=== PATIENT | female | born 1935 | race Caucasian/White ===

== ENCOUNTER 2016-11-04 13:27 | Inpatient (IN) | payer MEDICARE, OTHER ==
[~2016-11-04] VITALS: Ht 165.1 cm; Wt 31.7 kg
[2016-11-04] MEDS ORDERED: ALBUTEROL SULFATE 2.5 MG/0.5 ML INH NEB SOLN As Ordered ONE (14:29)
[2016-11-04] MEDS ORDERED: IPRATROPIUM 0.5MG/ALBUTEROL 2.5MG INH SOL UD 3ML (DUONEB)(J7620) As Ordered ONE (14:29)
[2016-11-04] MEDS ORDERED: methylPREDNISolone INJ 125 MG/2 ML VIAL (J2930) As Ordered ONE (14:44)
[2016-11-04 14:47] LABS: BASO % 0.4 % (0.0-1.0); EOS % 0.4 % (0.0-3.0); LARGE UNSTAINED CELL # 0.1 K/mm3 (0.0-0.4); LARGE UNSTAINED CELL % 1.1 % (0.0-4.0); LYMPH # 0.8 K/mm3 (1.5-4.5); LYMPH % 7.9 % (24.0-44.0); MEAN CORPUSCULAR HEMOGLOBIN 30.9 pg (27.0-33.0); MEAN CORPUSCULAR HGB CONC 30.9 g/dl (32.0-36.5); MONO # 0.4 K/mm3 (0.0-0.8); NEUTROPHILS # 7.3 K/mm3 (1.8-7.7); NEUTROPHILS % 85.2 % (36.0-66.0); PLATELET COUNT, AUTOMATED 237 k/mm3 (150-450); RED CELL DISTRIBUTION WIDTH 14.6 % (11.5-14.5); WHITE BLOOD COUNT 8.6 K/mm3 (4.0-10.0)
[2016-11-04 15:24] LABS: CALCIUM LEVEL 9.5 MG/DL (8.8-10.2); CREATININE FOR GFR 0.96 MG/DL (0.55-1.02); GLOMERULAR FILTRATION RATE 59.2 (>32); POTASSIUM SERUM 4.2 MEQ/L (3.5-5.1)
--- NOTE | 2016-11-04 15:34 | REP ---
Left lower extremity Duplex Doppler venous ultrasound: Real time compression and duplex Doppler interrogation of the left lower extremity deep venous system is performed. The left common femoral, superficial femoral and popliteal veins are fully compressible with transducer pressure and demonstrate normal spontaneous and phasic flow, without evidence of deep venous thrombosis. Impression: No evidence of deep venous thrombosis of the left lower extremity femoral popliteal venous system. Signed by Bart Cotter MD 11/04/2016 03:26 P
[2016-11-04] MEDS ORDERED: IBAN150T5 PO (16:35)
[2016-11-04] MEDS ORDERED: VITA100066 PO (16:35)
[2016-11-04] MEDS ORDERED: ASPI1TAB PO (16:35)
[2016-11-04] MEDS ORDERED: CARV3.12 PO (16:35)
[2016-11-04] MEDS ORDERED: SPIR25TA2 PO (16:35)
[2016-11-04] MEDS ORDERED: COLA100C PO (16:35)
[2016-11-04] MEDS ORDERED: ARNU1INH INH (16:35)
[2016-11-04] MEDS ORDERED: TYLE650T35 PO (16:35)
[2016-11-04] MEDS ORDERED: VITA10002 PO (16:35)
[2016-11-04] MEDS ORDERED: FERA1TAB PO (16:35)
[2016-11-04] MEDS ORDERED: CHLO125TA PO (16:35)
--- NOTE | 2016-11-04 17:36 | REP ---
LEFT HIP: Two views of the left hip are performed. There is no acute fracture or dislocation. There is a metallic prosthesis of the proximal left femur. Metallic plate and multiple metallic screws are also seen in the proximal left femur. Vascular calcifications are seen in the soft tissues. IMPRESSION: Left hip prosthesis and adjacent internal fixation without evidence of acute fracture or dislocation. Signed by Bart Cotter MD 11/05/2016 05:13 P
--- NOTE | 2016-11-04 17:37 | REP ---
LEFT FEMUR: AP and lateral views of the left femur are performed. There is no acute fracture or dislocation. Metallic prosthesis is noted at the proximal left femur. There is metallic plate, multiple metallic screws and cerclage wiring just below that. IMPRESSION: No acute fracture or dislocation. Metallic internal fixation as well as left hip prosthesis. Signed by Bart Cotter MD 11/05/2016 05:13 P
[2016-11-04] MEDS ORDERED: ONDANSETRON 4MG/2ML VIAL (J2405) IV PRN (17:45)
[2016-11-04] MEDS ORDERED: ACETAMINOPHEN TAB 650MG DOSE (2X325MG) PO PRN (17:45)
[2016-11-04] MEDS ORDERED: IPRATROPIUM 0.5MG/ALBUTEROL 2.5MG INH SOL UD 3ML (DUONEB)(J7620) NEB PRN (17:45)
--- NOTE | 2016-11-04 17:57 | REP ---
CHEST: AP supine film of the chest is performed and compared to prior study of 09/18/2011. The heart size is not well evaluated. There are diffuse bilateral infiltrates. There are bilateral pleural effusions. The findings are likely on the basis of CHF and pulmonary edema, but underlying pneumonia cannot be excluded. IMPRESSION: Findings compatible with CHF and pulmonary edema with effusions. Cannot exclude underlying pneumonia. Signed by Bart Cotter MD 11/05/2016 05:13 P
--- NOTE | 2016-11-04 18:10 | HPE ---
DATE OF ADMISSION: 11/04/2016 PRIMARY CARE PROVIDER: Dr. Reyes [employer] PROFESSOR: Dr. Toledo CHIEF COMPLAINT: Increased shortness of breath and nonproductive cough for the last two or three days. HISTORY OF PRESENT ILLNESS: The patient has had 2-3 days of dry cough, increased shortness of breath, dyspnea on exertion, not feeling well, feeling tired most of the time. She did have a systolic blood pressure of 100 when she presented to the emergency department. QSOFA score and sepsis screen was negative. She was slightly hypoxic. She did receive DuoNebs, Solu-Medrol, and did improve her symptoms. PAST MEDICAL HISTORY: 1. Chronic obstructive pulmonary disease (COPD). 2. Hypertension. 3. Congestive heart failure with a known left ventricular ejection fraction of 25%. PAST SURGICAL HISTORY: 1. Left hip arthroplasty. 2. Partial gastrectomy. SOCIAL HISTORY: She states she has never been a smoker. Denies alcohol use. No illicit drug use. No sick contacts. No travel. FAMILY HISTORY: Noncontributory due to advanced age. ALLERGIES: Morphine. HOME MEDICATIONS: - Colace 100 mg twice a day - vitamin D 1000 units daily - Tylenol 325 mg every six hours as needed - Fergon 240 mg two tablets daily - vitamin B12 1000 mcg daily - aspirin 81 mg daily - multivitamin one tablet daily - ibandronate 150 mg monthly - chlorthalidone 25 mg half a tablet daily - carvedilol 3.125 mg twice a day - Arnuity Ellipta 100 mcg inhaler daily - spironolactone 25 mg half a tablet daily REVIEW OF SYSTEMS: CONSTITUTIONAL: Some generalized weakness. No fevers, chills, or rigors. No change in appetite. HEENT: She denies headache, lightheadedness, dizziness, blurry vision, double vision, or tinnitus. PULMONARY: Increased shortness of breath, some dyspnea on exertion with intermittent nonproductive cough. CARDIOVASCULAR: Positive history of heart failure with left ventricular ejection fraction of 25%. No paroxysmal nocturnal dyspnea (PND), orthopnea or lower extremity edema. GASTROINTESTINAL: No nausea, vomiting, or diarrhea. Bowel movements are regular. She denies any hematochezia or melena. GENITOURINARY: No dysuria, frequency, or hematuria. MUSCULOSKELETAL: No bone, muscle or joint pain, swelling, or erythema. NEUROLOGIC: No paresthesias or paralysis. ENDOCRINE: Negative for diabetes. Negative for thyroid disorder. LYMPHATICS: No lumps, bumps or swelling in the neck, axilla or groin. No weight loss. No night sweats. HEMATOLOGY: negative for bleeding or bruising disorder. No history of venous thromboembolism. ONCOLOGY: Negative for cancer. PSYCHIATRIC: Negative for depression. No suicidal ideation. No audio or visual hallucinations. PHYSICAL EXAMINATION: VITAL SIGNS: Temperature is 96.3, respiratory rate 16, pulse 95, blood pressure is 114/63, SPO2 is 97% on room air. GENERAL: The patient appears to be in no acute distress. She is alert and oriented. HEENT: Unremarkable. LUNGS: Diminished bibasilar breath sounds, expiratory wheeze. HEART: Regular rate and rhythm. ABDOMEN: Soft. EXTREMITIES: No edema. No calf tenderness. LABORATORY DATA: White count is 8.6, hemoglobin 13.7, and platelets are 237,000. Sodium 139, potassium is 4.2, chloride 106, bicarbonate 23, anion gap 10, BUN is 25, creatinine 0.96, glucose 135, CK 59, CK-MB 2.3, troponin 0.17. BNP is 2070. Blood cultures are pending times two. A 12-lead EKG shows sinus rhythm with occasional PVCs, left atrial enlargement, right axis is noted with right bundle branch block. IMPRESSION: Ms. Christina is a pleasant 80-year-old female who presented with increasing shortness of breath, dyspnea on the exertion, and nonproductive cough. She did respond to Solu-Medrol. However, I am concerned that she has an elevated troponin as well as a brain natriuretic peptide (BNP). I did have a discussion with Dr. Toledo who felt that we should be cautious with trying to diurese her, that she is frail and has a baseline poor prognosis. We will go ahead and monitor her overnight and continue with the diuretics that she is currently on. However, some of the etiology may be related to her chronic obstructive pulmonary disease (COPD) exacerbation. PROBLEM LIST: 1. Chronic obstructive pulmonary disease exacerbation. 2. Congestive heart failure (CHF) with known left ventricular ejection fraction of 25% and poor prognosis. 3. Hypertension. 4. Vitamin D deficiency. 5. Iron deficiency. PLAN: The patient will be admitted to the progressive care unit (PCU). We will cycle her cardiac enzymes, continue with Solu-Medrol, DuoNebs and home medications as directed. DVT prophylaxis with heparin. We will reevaluate her in the morning. If she is doing well, we will see if we can get her discharged home safely. However, I did have a servando discussion with her and her family members regarding her advanced directives. She does have a poor prognosis at baseline and she may want to have further discussions with her family, primary care provider, and Dr. Toledo regarding her advanced directives.
--- NOTE | 2016-11-04 20:57 | EDDOCDS ---
Nurse's Notes [facility] Name: Flor Christina Age: 80 yrs Sex: Female : 1935 Arrival Date: 11/04/2016 Time: 13:27 Bed 21 Private MD: Venessa Mitchell Diagnosis: Acute combined systolic (congestive) and diastolic (congestive) heart failure;Dyspnea;Chronic obstructive pulmonary disease with (acute) exacerbation Presentation: 11/04 13:33 Presenting complaint: Patient states: having diff beathing for last few days. dry bcj cough. more SOB with any activity. also states not eating well/feels tired all the time. denies chest pain. Adult Sepsis Screening: The patient does not have new or worsening altered mentation. Patient's respiratory rate is less than 22. Systolic blood pressure is greater than 100. Patient has a qSOFA score of 0- Negative Sepsis Screen. Suicide/Homicide risk assessment- the patient denies having any suicidal and/or homicidal ideations and does not present with any other emotional, behavioral or mental health complaints. Status: Patient is not a utility service worker or dependent. Transition of care: patient was not received from another setting of care. 13:33 Acuity: JUSTICE Level 3 bcj 13:33 Method Of Arrival: Walkin/Carried/Asstd bcj Triage Assessment: 13:45 General: Appears in no apparent distress, comfortable, Behavior is cooperative. Pain: bcj Location: left leg Pain currently is 3 out of 10 on a pain scale. Respiratory: Onset: The symptoms/episode began/occurred at an unknown time. Historical: - Allergies: Morphine; - Home Meds: 1. Colace 100 mg oral cap 1 cap 2 times per day 2. Vitamin D Oral 1,000 unit daily 3. Tylenol 325 mg Oral tab 2 tabs as needed 4. Fergon 240 mg (27 mg iron) oral tab 2 tab daily 5. Vitamin B-12 1,000 mcg Oral tab daily 6. aspirin 81 mg Oral tab 1 tab once daily 7. multivitamin Oral cap 1 tablet daily 8. ibandronate 150 mg oral tab 1 tab once moly 9. chlorthalidone 25 mg Oral tab 0.5 tab once daily 10. carvedilol 3.125 mg oral tab 1 tab 2 times per day 11. Arnuity Ellipta 100 mcg/actuation inhalation dsdv 1 puff once daily 12. spironolactone 25 mg Oral tab 12.5 mg once daily - PMHx: COPD; Hypertension; - PSHx: Hip Arthroplasty, Left; Partial gastrectomy; - Social history: Smoking status: Patient states was never smoker of tobacco. No barriers to communication noted. - Family history: Not pertinent. - : The pt / caregiver states he / she is not on anticoagulants. Home medication list is obtained from the patient. - Exposure Risk Screening:: None identified. Screenin:40 Screening information is obtained from the patient. Fall risk: No risks identified. mk4 Assistance ADL's: requires no assistance with activities of daily living. Abuse/DV Screen: The patient / caregiver reports he/she is: not in a situation that causes fear, pain or injury. Nutritional screening: No deficits noted. Advance Directives: Currently, there is no health care proxy. There is no active DNR order. There is no living will. There is no Power of [employer] Forms. Advance directive information has not previously been placed in an [facility] medical record. home support is adequate. Assessment: 14:13 General: Appears in no apparent distress. General: c/o pain left leg. Neurological: mk4 Level of Consciousness is awake, alert. Cardiovascular: No deficits noted. Cardiovascular: Chest pain is denied. Respiratory: Airway is patent Respiratory effort is even, unlabored, Respiratory pattern is regular, Breath sounds are diminished bilaterally. Derm: Skin is thin, with poor turgor Skin is pale. 15:39 General: General: Appears in no apparent distress, comfortable, Behavior is pleasant. mk4 15:43 Pain: Denies pain. Neurological: Level of Consciousness is awake, alert. Respiratory: mk4 Airway is patent Respiratory effort is even, unlabored, Respiratory pattern is regular. 16:59 General: Appears in no apparent distress, comfortable, Behavior is appropriate for age, jmb cooperative, Patient laying on stretcher, appears comfortable. No voiced complaints at this time. . Neurological: Level of Consciousness is awake, alert, obeys commands, Oriented to person, place, time, Emergency Care Attendant are weak bilaterally Speech is normal, Facial symmetry appears normal, Facial symmetry: tongue is midline. Cardiovascular: Capillary refill < 3 seconds Heart tones S1 S2 present Pulses are all present. Rhythm is regular Chest pain is denied. Respiratory: Airway is patent Respiratory effort is even, unlabored, Respiratory pattern is regular, symmetrical, Breath sounds are diminished bilaterally. GI: Abdomen is non- distended Bowel sounds present X 4 quads. Abd is soft and non tender X 4 quads. Derm: Skin is pink, warm & dry. Musculoskeletal: Range of motion intact in all extremities. 17:43 General: Appears in no apparent distress, comfortable, Behavior is appropriate for age, jmb cooperative, Patient laying on stretcher with family at bedside. NO voiced complaints at this time. . Neurological: Level of Consciousness is awake, alert, obeys commands, Oriented to person, place, time. Respiratory: Airway is patent Respiratory effort is even, unlabored, Respiratory pattern is regular, symmetrical. 18:35 General: Appears in no apparent distress, comfortable, Behavior is appropriate for age, jmb cooperative. Neurological: Level of Consciousness is awake, alert, obeys commands, Oriented to person, place, time. Respiratory: Airway is patent Respiratory effort is even, unlabored, Respiratory pattern is regular, symmetrical. 18:55 General: Appears in no apparent distress, comfortable, Behavior is appropriate for age, jmb cooperative, Patient laying on stretcher, appears comfortable. Patient voices no complaints at this time. . Neurological: Level of Consciousness is awake, alert, obeys commands, Oriented to person, place, time. Respiratory: Airway is patent Respiratory effort is even, unlabored, Respiratory pattern is regular, symmetrical. Vital Signs: 13:30 BP 114 / 63; Pulse 95; Resp 16; Temp 96.3(T); Pulse Ox 97% on R/A; Weight 27.67 kg (R); nb2 Height 5 ft. 5 in. (165.10 cm) (R); Pain 3/10; 16:49 BP 141 / 70 (auto/); jmb 16:50 Pulse 104 MON; Pulse Ox 96% ; jmb 17:04 BP 137 / 67 (auto/); jmb 17:05 Pulse 98 MON; Pulse Ox 96% ; jmb 17:19 BP 140 / 70 (auto/); jmb 17:20 Pulse 98 MON; Pulse Ox 96% ; jmb 17:34 BP 139 / 90 (auto/); jmb 17:34 Pulse 102 MON; Pulse Ox 97% ; jmb 17:49 BP 133 / 65 (auto/); jmb 17:50 Pulse 100 MON; Pulse Ox 98% ; jmb 18:04 BP 129 / 69 (auto/); jmb 18:05 Pulse 98 MON; Pulse Ox 96% ; jmb 18:19 BP 135 / 83 (auto/); jmb 18:20 Pulse 104 MON; jmb 18:34 BP 133 / 82 (auto/); jmb 18:34 Pulse 106 MON; jmb 18:34 Resp 20; Temp 97.4(O); Pulse Ox 96% on R/A; Pain 0/10; jmb 18:49 BP 133 / 65 (auto/); jmb 18:50 Pulse 100 MON; Pulse Ox 95% ; jmb 19:04 BP 109 / 59 (auto/); jmb 19:04 Pulse 96 MON; Pulse Ox 96% ; jmb 19:19 BP 98 / 68 (auto/); jmb 19:19 Pulse 96 MON; Pulse Ox 93% ; jmb 19:34 BP 119 / 75 (auto/); jmb 19:35 Pulse 100 MON; Pulse Ox 94% ; jmb 19:49 BP 122 / 60 (auto/); jmb 19:50 Pulse 102 MON; Pulse Ox 96% ; jmb 20:04 BP 126 / 64 (auto/); jmb 20:05 Pulse 98 MON; Pulse Ox 95% ; jmb 20:19 BP 122 / 71 (auto/); jmb 20:20 Pulse 102 MON; Pulse Ox 95% ; jmb 20:34 BP 118 / 64 (auto/); jmb 20:35 Pulse 100 MON; Pulse Ox 96% ; jmb 20:55 BP 118 / 64; Pulse 99; Resp 18 S; Temp 97.1(O); Pulse Ox 97% on R/A; Pain 0/10; jp4 13:30 Body Mass Index 10.15 (27.67 kg, 165.10 cm) nb2 Vitals: 13:30 Log In Time: November 04, 2016 at 13:28. nb2 ED Course: 13:29 Patient visited by Celia Salmeron. nb2 13:29 Patient moved to Waiting nb2 13:30 Venessa Mitchell is Private Physician. nb2 13:32 Patient moved to Pre RCE nb2 13:38 Triage Initiated bcj 13:46 Patient visited by Maldonado Watkins RN. bcj 14:07 Patient moved to Triage 1 ar3 14:08 Patient moved to Pre RCE bcj 14:13 Patient moved to I9 / kpj 14:14 Jayne Gomes MD is Attending Physician. ml 14:14 Patient visited by Jayne Gomes MD. ml 14:42 CBC with Diff Sent. mk4 14:42 MED Profile Sent. mk4 14:42 BNP Sent. mk4 14:42 CIP Sent. mk4 14:42 Troponin Sent. mk4 14:42 -Blood Culture Sent. mk4 14:42 Inserted saline lock: 20 gauge in right antecubital area and blood collected. No mk4 procedures done that require assistance. 14:46 Patient visited by Antonia Johnson, RN. mk4 15:01 Patient moved to Ultrasound br3 15:24 Patient moved to I9 / br3 15:28 Patient visited by Antonia Johnson, VIANNEY. mk4 15:40 The patient / caregiver is instructed regarding the plan of care and ED course. mk4 15:49 Patient moved to 21 srm 15:52 US Lower Extremity R/O DVT Returned. EDMS 16:19 Vik Rivers DO is Hospitalizing Provider. ml 17:01 Patient visited by Barney Donald RN. jmb 17:43 Patient visited by Barney Donald RN. jmb 18:10 Hip, (AP/Lat) Returned. EDMS 18:10 Femur Returned. EDMS 18:11 Chest, 1 View Returned. EDMS 18:22 [facility] Payment Agreement was scanned into [employer] and attached to record. ks16 18:57 Patient visited by Barney Donald RN. jmb 20:55 Patient visited by Mike Saunders. jp4 Administered Medications: 14:32 Drug: Albuterol 5 mg [albuterol sulfate 2.5 mg/0.5 mL solution for nebulization (1 mL)] 7 Route: Nebulizer; 14:45 Follow up: Response: Nebulizer completed 14:32 Drug: Albuterol-Ipratropium 3 ml [ipratropium-albuterol 0.5 mg-3 mg(2.5 mg base)/3 mL sd7 nebulization soln (3 mL)] Route: Inhalation; 14:45 Follow up: Response: Nebulizer completed sd7 15:29 Drug: Solu-MEDROL 125 mg [Solu-Medrol 500 mg intravenous solution (125 mg)] Route: IVP; mk4 Site: right antecubital; RT: 14:32 Initial Med Neb Given as ordered Patient was instructed and evaluated on procedure sd7 Patient tolerated procedure well without adverse effect. Respiratory: Breath sounds are diminished bilaterally. Order Results: Lab Order: CBC with Diff; SPEC'M 11/04/16 14:39 Test: WHITE BLOOD COUNT; Value: 8.6; Range: 4.0-10.0; Units: K/mm3; Status: F Test: RED BLOOD COUNT; Value: 4.42; Range: 4.00-5.40; Units: M/mm3; Status: F Test: HEMOGLOBIN; Value: 13.7; Range: 12.0-16.0; Units: g/dl; Status: F Test: HEMATOCRIT; Value: 44.2; Range: 36.0-47.0; Units: %; Status: F Test: MEAN CORPUSCULAR VOLUME; Value: 100.0; Range: 80.0-96.0; Abnormal: Above high normal; Units: fl; Status: F Test: MEAN CORPUSCULAR HEMOGLOBIN; Value: 30.9; Range: 27.0-33.0; Units: pg; Status: F Test: MEAN CORPUSCULAR HGB CONC; Value: 30.9; Range: 32.0-36.5; Abnormal: Below low normal; Units: g/dl; Status: F Test: RED CELL DISTRIBUTION WIDTH; Value: 14.6; Range: 11.5-14.5; Abnormal: Above high normal; Units: %; Status: F Test: PLATELET COUNT, AUTOMATED; Value: 237; Range: 150-450; Units: k/mm3; Status: F Test: NEUTROPHILS %; Value: 85.2; Range: 36.0-66.0; Abnormal: Above high normal; Units: %; Status: F Test: LYMPH %; Value: 7.9; Range: 24.0-44.0; Abnormal: Below low normal; Units: %; Status: F Test: MONO %; Value: 5.0; Range: 0.0-5.0; Units: %; Status: F Test: EOS %; Value: 0.4; Range: 0.0-3.0; Units: %; Status: F Test: BASO %; Value: 0.4; Range: 0.0-1.0; Units: %; Status: F Test: LARGE UNSTAINED CELL %; Value: 1.1; Range: 0.0-4.0; Units: %; Status: F Test: NEUTROPHILS #; Value: 7.3; Range: 1.8-7.7; Units: K/mm3; Status: F Test: LYMPH #; Value: 0.8; Range: 1.5-4.5; Abnormal: Below low normal; Units: K/mm3; Status: F Test: MONO #; Value: 0.4; Range: 0.0-0.8; Units: K/mm3; Status: F Test: EOS #; Value: 0.0; Range: 0.0-0.50; Units: K/mm3; Status: F Test: BASO #; Value: 0.0; Range: 0.0-0.2; Units: K/mm3; Status: F Test: LARGE UNSTAINED CELL #; Value: 0.1; Range: 0.0-0.4; Units: K/mm3; Status: F Lab Order: MED Profile; SPEC'M 11/04/16 14:39 Test: GLUCOSE, FASTING; Value: 135; Range: 83-110; Abnormal: Above high normal; Units: MG/DL; Status: F Test: BLOOD UREA NITROGEN; Value: 25; Range: 7-18; Abnormal: Above high normal; Units: MG/DL; Status: F Test: CREATININE FOR GFR; Value: 0.96; Range: 0.55-1.02; Units: MG/DL; Status: F Test: GLOMERULAR FILTRATION RATE; Value: 59.2; Range: >32; Status: F Test: SODIUM LEVEL; Value: 139; Range: 136-145; Units: MEQ/L; Status: F Test: POTASSIUM SERUM; Value: 4.2; Range: 3.5-5.1; Units: MEQ/L; Status: F Test: CHLORIDE LEVEL; Value: 106; Range: 98-107; Units: MEQ/L; Status: F Test: CARBON DIOXIDE LEVEL; Value: 23; Range: 21-32; Units: MEQ/L; Status: F Test: ANION GAP; Value: 10; Range: 8-16; Units: MEQ/L; Status: F Test: CALCIUM LEVEL; Value: 9.5; Range: 8.8-10.2; Units: MG/DL; Status: F Test Note: ; Units are mL/min/1.73 m2 Chronic Kidney Disease Staging per NKF: Stage I & II GFR >=60 Normal to Mildly Decreased Stage III GFR 30-59 Moderately Decreased Stage IV GFR 15-29 Severely Decreased Stage V GFR <15 Very Little GFR Left ESRD GFR <15 on SPEECH LANGUAGE PATHOLOGY ASSISTANT Lab Order: BNP; SPEC'M 11/04/16 14:39 Test: BRAIN NATRIURETIC PEPTIDE; Value: 2070; Range: <100; Abnormal: Above high normal; Units: PG/ML; Status: F Lab Order: CIP; SPEC'M 11/04/16 14:39 Test: CPK CREATINE PHOSPHOKINASE; Value: 59; Range: 26-192; Units: U/L; Status: F Test: CK-MB VALUE MASS; Value: 2.3; Range: 0.0-3.6; Units: NG/ML; Status: F Test: MB/CK RELATIVE INDEX; Value: 3.89; Range: < OR =4; Status: F Test Note: ; DIAGNOSIS CRITERIA MMB ng/ml Relative Index (RI) NON-AMI < or = 5 N/A COT[place]ONE > 5 < or = 4 AMI > 5 > 4 Lab Order: Troponin; SPEC'M 11/04/16 14:39 Test: TROPONIN I; Value: 0.17; Range: < 0.10; Abnormal: Above high normal; Units: NG/ML; Status: F Test Note: ; Troponin I Reference Interval for [employer] LOCI: 99th Percentile= 0.00-0.045 ng/ml Risk Stratification: <= 0.10 ng/ml Decreased Risk for Adverse Clinical Events. 0.10-1.50 ng/ml Increased Risk for Adverse Clinical Events. Evaluation of additional criterion and/or repeat testing in 2-6 hours is suggested to rule out myocardial damage. >= 1.50 ng/ml Indicative of Myocardial Injury. Radiology Order: Chest, 1 View Test: Chest, 1 View REASON FOR EXAMINATION: sob; CHEST:; ; AP supine film of the chest is performed and compared to prior study of; 09/18/2011.; ; The heart size is not well evaluated. There are diffuse bilateral infiltrates.; There are bilateral pleural effusions. The findings are likely on the basis of; CHF and pulmonary edema, but underlying pneumonia cannot be excluded.; ; IMPRESSION:; Findings compatible with CHF and pulmonary edema with effusions. Cannot exclude; underlying pneumonia.; ; Unreviewed; Radiology Order: US Lower Extremity R/O DVT Test: US Lower Extremity R/O DVT REASON FOR EXAMINATION: swelling; Left lower extremity Duplex Doppler venous ultrasound:; ; Real time compression and duplex Doppler interrogation of the left lower; extremity deep venous system is performed. The left common femoral, superficial; femoral and popliteal veins are fully compressible with transducer pressure and; demonstrate normal spontaneous and phasic flow, without evidence of deep venous; thrombosis.; ; Impression:; ; No evidence of deep venous thrombosis of the left lower extremity femoral; popliteal venous system.; ; ; Signed by; Bart Cotter MD 11/04/2016 03:26 P; Radiology Order: Hip, (AP/Lat) Test: Hip, (AP/Lat) REASON FOR EXAMINATION: fall; LEFT HIP:; ; Two views of the left hip are performed.; ; There is no acute fracture or dislocation. There is a metallic prosthesis of the; proximal left femur. Metallic plate and multiple metallic screws are also seen in; the proximal left femur. Vascular calcifications are seen in the soft tissues.; ; IMPRESSION:; Left hip prosthesis and adjacent internal fixation without evidence of acute; fracture or dislocation.; ; Unreviewed; Radiology Order: Femur Test: Femur REASON FOR EXAMINATION: fall; LEFT FEMUR:; ; AP and lateral views of the left femur are performed.; ; There is no acute fracture or dislocation. Metallic prosthesis is noted at the; proximal left femur. There is metallic plate, multiple metallic screws and; cerclage wiring just below that.; ; IMPRESSION:; No acute fracture or dislocation. Metallic internal fixation as well as left hip; prosthesis.; ; ; ; Unreviewed; Outcome: 16:20 Decision to Hospitalize by Provider. ml 18:50 Discharge Assessment: Patient awake, alert and oriented x 3. No cognitive and/or jmb functional deficits noted. Patient verbalized understanding of disposition instructions. Patient awake and alert. obeys commands, Oriented to person, place and time. Patient verbalized understanding of disposition instructions. Patient has no functional deficits. patient administered narcotics - no. The following High Risk Discharge criteria are identified: None. Admitted to PCU accompanied by nurse, accompanied by tech, via stretcher, on monitor, with chart. Condition: stable. No special radiology studies were completed. Property sent home with patient. 20:56 Patient left the ED. caitlin Signatures: Dispatcher [employer] EDOK Jayne Gomes MD MD ml Jobson, Karen, RN RN Maldonado Simon, RN RN Dorothy Almaraz, RN RN Jennifer Shankar br3 Nay Wadsworth, CAFE SITE ATTENDANT CAFE SITE ATTENDANT ar3 Barney DonaldRN RN Antonia Brar RN RN renaldo4 Mike Saunders jp4 Dominga Gay,RT RT sd7 Linh Razo, Reg Reg ks16 Celia Salmeron2 Corrections: (The following items were deleted from the chart) 15:43 15:39 General: mk4 mk4 [email or web address]
--- NOTE | 2016-11-04 20:57 | EDDOCDS ---
Physician Documentation [facility] Name: Flor Christina Age: 80 yrs Sex: Female : 1935 Arrival Date: 11/04/2016 Time: 13:27 Bed 21 Private MD: Venessa Mitchell Disposition: 11/04 18:22 Critical Care:. ml Disposition: 11/04/16 16:20 Hospitalization ordered by Vik Rivers for Inpatient Admission. Preliminary diagnosis are Acute combined systolic (congestive) and diastolic (congestive) heart failure, Dyspnea, Chronic obstructive pulmonary disease with (acute) exacerbation. - Bed requested for PCU. - Status is Inpatient Admission. jmb - Condition is Stable. - Problem is new. - Symptoms are unchanged. Historical: - Allergies: Morphine; - Home Meds: 1. Colace 100 mg oral cap 1 cap 2 times per day 2. Vitamin D Oral 1,000 unit daily 3. Tylenol 325 mg Oral tab 2 tabs as needed 4. Fergon 240 mg (27 mg iron) oral tab 2 tab daily 5. Vitamin B-12 1,000 mcg Oral tab daily 6. aspirin 81 mg Oral tab 1 tab once daily 7. multivitamin Oral cap 1 tablet daily 8. ibandronate 150 mg oral tab 1 tab once moly 9. chlorthalidone 25 mg Oral tab 0.5 tab once daily 10. carvedilol 3.125 mg oral tab 1 tab 2 times per day 11. Arnuity Ellipta 100 mcg/actuation inhalation dsdv 1 puff once daily 12. spironolactone 25 mg Oral tab 12.5 mg once daily - PMHx: COPD; Hypertension; - PSHx: Hip Arthroplasty, Left; Partial gastrectomy; - Social history: Smoking status: Patient states was never smoker of tobacco. No barriers to communication noted. - Family history: Not pertinent. - : The pt / caregiver states he / she is not on anticoagulants. Home medication list is obtained from the patient. - Exposure Risk Screening:: None identified. Vital Signs: 13:30 BP 114 / 63; Pulse 95; Resp 16; Temp 96.3(T); Pulse Ox 97% on R/A; Weight 27.67 kg / 61 nb2 lbs (R); Height 5 ft. 5 in. (165.10 cm) (R); Pain 3/10; 16:49 BP 141 / 70 (auto/); jmb 16:50 Pulse 104 MON; Pulse Ox 96% ; jmb 17:04 BP 137 / 67 (auto/); jmb 17:05 Pulse 98 MON; Pulse Ox 96% ; jmb 17:19 BP 140 / 70 (auto/); jmb 17:20 Pulse 98 MON; Pulse Ox 96% ; jmb 17:34 BP 139 / 90 (auto/); jmb 17:34 Pulse 102 MON; Pulse Ox 97% ; jmb 17:49 BP 133 / 65 (auto/); jmb 17:50 Pulse 100 MON; Pulse Ox 98% ; jmb 18:04 BP 129 / 69 (auto/); jmb 18:05 Pulse 98 MON; Pulse Ox 96% ; jmb 18:19 BP 135 / 83 (auto/); jmb 18:20 Pulse 104 MON; jmb 18:34 BP 133 / 82 (auto/); jmb 18:34 Pulse 106 MON; jmb 18:34 Resp 20; Temp 97.4(O); Pulse Ox 96% on R/A; Pain 0/10; jmb 18:49 BP 133 / 65 (auto/); jmb 18:50 Pulse 100 MON; Pulse Ox 95% ; jmb 19:04 BP 109 / 59 (auto/); jmb 19:04 Pulse 96 MON; Pulse Ox 96% ; jmb 19:19 BP 98 / 68 (auto/); jmb 19:19 Pulse 96 MON; Pulse Ox 93% ; jmb 19:34 BP 119 / 75 (auto/); jmb 19:35 Pulse 100 MON; Pulse Ox 94% ; jmb 19:49 BP 122 / 60 (auto/); jmb 19:50 Pulse 102 MON; Pulse Ox 96% ; jmb 20:04 BP 126 / 64 (auto/); jmb 20:05 Pulse 98 MON; Pulse Ox 95% ; jmb 20:19 BP 122 / 71 (auto/); jmb 20:20 Pulse 102 MON; Pulse Ox 95% ; jmb 20:34 BP 118 / 64 (auto/); jmb 20:35 Pulse 100 MON; Pulse Ox 96% ; jmb 20:55 BP 118 / 64; Pulse 99; Resp 18 S; Temp 97.1(O); Pulse Ox 97% on R/A; Pain 0/10; jp4 13:30 Body Mass Index 10.15 (27.67 kg, 165.10 cm) nb2 MDM: 14:28 IV Saline Lock ordered. ml 14:28 -Blood Culture (Adults Only), peripheral from different site, or from device/port/PICC ml etc. if present ordered. 14:28 Albuterol 5 mg Nebulizer once ordered. ml 14:28 Albuterol-Ipratropium 3 ml Inhalation once ordered. ml 14:28 Call Respiratory ordered. ml 14:28 Solu-MEDROL 125 mg IVP once ordered. ml 14:29 CBC with Diff Ordered. EDMS 14:29 MED Profile Ordered. EDMS 14:29 BNP Ordered. EDMS 14:29 CIP Ordered. EDMS 14:29 Troponin Ordered. EDMS 14:29 -Blood Culture Ordered. EDMS 14:29 Chest, 1 View Ordered. EDMS 14:30 ECG WITH READING ER PHYS+CARDIAG ordered. EDMS 14:30 US Lower Extremity R/O DVT Ordered. EDMS 14:31 Hip, (AP/Lat) Ordered. EDMS 14:31 Femur Ordered. EDMS 14:40 Call Respiratory complete. sd7 14:50 BLOOD CULTURES Ordered. EDMS 15:05 -Blood Culture (Adults Only), peripheral from different site, or from device/port/PICC lbd etc. if present complete. 15:32 CBC with Diff Reviewed. ml 15:32 MED Profile Reviewed. ml 15:32 BNP Reviewed. ml 15:32 Troponin Reviewed. ml 15:32 CIP Reviewed. ml 15:33 Customer Support Technician/Pulse Ox/q 15 min VS ordered. ml 15:33 Rhythm Strip to chart ordered. ml 15:34 Misc. Nursing Order ordered. ml 15:44 BED REQUEST+ADM ordered. EDMS 17:21 Financial registration complete. ks16 17:38 Admission / Observation Status ordered. EDMS 17:38 REGULAR DIET ordered. EDMS 17:40 PHYSICAL THERAPY EVAL & TREAT ordered. EDMS 17:46 Admission / Observation Status ordered. EDMS 18:22 [facility] Payment Agreement was scanned into [employer] and attached to record. ks16 19:31 COMPLETE BLOOD COUNT Ordered. EDMS 19:31 RENAL PROFILE Ordered. EDMS 20:51 CARDIAC MARKER PANEL Ordered. EDMS 20:52 CARDIAC MARKER PANEL Ordered. EDMS Administered Medications: 14:32 Drug: Albuterol 5 mg [albuterol sulfate 2.5 mg/0.5 mL solution for nebulization (1 mL)] Route: Nebulizer; 14:45 Follow up: Response: Nebulizer completed 14:32 Drug: Albuterol-Ipratropium 3 ml [ipratropium-albuterol 0.5 mg-3 mg(2.5 mg base)/3 mL nebulization soln (3 mL)] Route: Inhalation; 14:45 Follow up: Response: Nebulizer completed 15:29 Drug: Solu-MEDROL 125 mg [Solu-Medrol 500 mg intravenous solution (125 mg)] Route: IVP; mk4 Site: right antecubital; Critical Care Time: 18:22 Critical care time: Bedside Care: 120 minutes, Consultation: 10 minutes. Total time: ml 130 minutes Signatures: Dispatcher [employer] EDPA Jayne Gomes MD MD ml Olena Bryant, Atmospheric Chemist Unit lbd Maldonado Watkins RN RN Shanell Cain, Atmospheric Chemist Unit ml3 Barney DonaldRN RN Antonia Brar RN RN mk4 Dominga Gay,RT RT sd7 Shirley Cheek RN Linh Lindsay mem, Reg Reg ks16 The chart was reviewed and I authenticate all verbal orders and agree with the evaluation and treatment provided.Attachments: 18:22 [facility] Payment Agreement [email or web address]
[2016-11-04 21:00] VITALS: BP 128/67
[2016-11-04] MEDS: DOCUSATE SODIUM 100 MG CAP PO SCH (21:41)
[2016-11-04] MEDS: CARVedilol 3.125 MG TAB PO SCH (21:42)
[2016-11-04] MEDS: VITAMIN D 1,000 INTERNATIONAL UNITS TABLET PO SCH (21:42)
[2016-11-04] MEDS: HEPARIN SOD (PORCINE) 5000 UNITS/ML VIAL SC SCH (21:42)
[2016-11-05] VITALS (8 sets, daily range): BP systolic 99–136; BP diastolic 57–78
[2016-11-05] MEDS ORDERED: SLF 3 ML SYR IV PRN (00:15)
[2016-11-05] MEDS: IPRATROPIUM 0.5MG/ALBUTEROL 2.5MG INH SOL UD 3ML (DUONEB)(J7620) NEB SCH ×3 (00:44→16:00)
[2016-11-05] MEDS ORDERED: methylPREDNISolone INJ 125 MG/2 ML VIAL (J2930) IV SCH (03:00)
[2016-11-05] MEDS: SLF 3 ML SYR IV SCH ×3 (04:10→21:02)
[2016-11-05] MEDS: HEPARIN SOD (PORCINE) 5000 UNITS/ML VIAL SC SCH ×3 (05:24→21:02)
[2016-11-05 05:51] LABS: MEAN CORPUSCULAR HEMOGLOBIN 31.8 pg (27.0-33.0); MEAN CORPUSCULAR HGB CONC 31.8 g/dl (32.0-36.5); MEAN CORPUSCULAR VOLUME 100.2 fl (80.0-96.0); RED CELL DISTRIBUTION WIDTH 14.7 % (11.5-14.5); WHITE BLOOD COUNT 6.2 K/mm3 (4.0-10.0)
[2016-11-05 05:56] LABS: ALBUMIN 2.5 GM/DL (3.2-5.2); CALCIUM LEVEL 8.8 MG/DL (8.8-10.2); GLOMERULAR FILTRATION RATE 56.5 (>32); PHOSPHORUS LEVEL 3.9 MG/DL (2.5-4.9)
[2016-11-05] MEDS: ASPIRIN 81 MG ENTERIC TAB PO SCH (08:10)
[2016-11-05] MEDS: VITAMIN D 1,000 INTERNATIONAL UNITS TABLET PO SCH ×2 (08:10→20:58)
[2016-11-05] MEDS: CYANOCOBALAMIN 500 MCG TAB PO SCH (08:10)
[2016-11-05] MEDS: DOCUSATE SODIUM 100 MG CAP PO SCH ×2 (08:10→20:58)
[2016-11-05] MEDS: CARVedilol 3.125 MG TAB PO SCH ×3 (08:11→22:08)
[2016-11-05] MEDS: SPIRONOLACTONE 25 MG TAB PO SCH (08:11)
[2016-11-05] MEDS ORDERED: predniSONE 20 MG TAB PO SCH (09:00)
[2016-11-05] MEDS ORDERED: CHLORTHALIDONE 12.5MG PER 1/2 TABLET PO SCH (09:00)
--- NOTE | 2016-11-05 13:25 | IPNPDOC ---
Assessment/Plan Date Seen The patient was seen on 11/05/16. Problems Problems: (1) Troponin level elevated Status: Acute Problem Text: * likely secondary to respiratory distress * will continue to trend * spoke with Dr toledo who agreed to see pt in consultation * she is not a candidate for intervention (2) COPD exacerbation Status: Acute Problem Text: * continue duonebs and prednisone * will d/c solumedrol (3) CHF (congestive heart failure) Status: Acute Problem Text: * pt has systolic CHF with EF of 25% * Dr Toledo is consulted * continue Pt's home diuretics (4) HTN (hypertension) Status: Chronic Response to Treatment: Stable Plan / VTE VTE Prophylaxis Ordered?: Yes Subjective Review of Systems CC/HPI The patient is a 80-year-old female admitted with a reason for visit of Copd Exacerbation. Events since last encounter pt seen and examined, doing well, states she feels better, denies any chest pain or sob at this time, states her breathing is back to baseline. no overnight events per nursing Objective Physical Examination General Exam: Positive: No Acute Distress Eye Exam: Positive: PERRLA Chest Exam: Positive: Clear to auscultation, Normal air movement Heart Exam: Positive: Rate Normal Abdomen Exam: Positive: Normal bowel sounds, Soft, Negative: Hepatospenomegaly, Tenderness Extremity Exam: Positive: Edema Vital Signs/I&O Vital Signs Date Time Temp Pulse Resp B/P Pulse Ox O2 Delivery O2 Flow Rate FiO2 11/05/16 08:11 102 117/68 11/05/16 08:00 96.5 18 97 Room Air I&O- Last 24 Hours up to 6 AM 11/05/16 06:00 Intake Total 100 ml Output Total 0 ml Balance 100 ml Laboratory Data Labs 24H Laboratory Tests 2 11/04/16 14:39: Anion Gap 10, B-Type Natriuretic Peptide 2070H, White Blood Count 8.6, Red Blood Count 4.42, Hemoglobin 13.7, Hematocrit 44.2, Mean Corpuscular Volume 100.0H, Mean Corpuscular Hemoglobin 30.9, Mean Corpuscular Hemoglobin Concent 30.9L, Red Cell Distribution Width 14.6H, Platelet Count 237, Neutrophils (%) ( Auto) 85.2H, Lymphocytes (%) (Auto) 7.9L, Monocytes (%) (Auto) 5.0, Eosinophils (%) (Auto) 0.4, Basophils (%) (Auto) 0.4, Neutrophils # (Auto) 7.3, Lymphocytes # (Auto) 0.8L, Monocytes # (Auto) 0.4, Eosinophils # (Auto) 0.0, Basophils # ( Auto) 0.0, Blood Urea Nitrogen 25H, Creatinine 0.96, Sodium Level 139, Potassium Level 4.2, Chloride Level 106, Carbon Dioxide Level 23, Calcium Level 9.5, Total Creatine Kinase 59, Creatine Kinase MB 2.3, Creatine Kinase MB Relative Index 3.89, Glomerular Filtration Rate 59.2, Large Unclassified Cells # 0.1, Large Unclassified Cells % 1.1, Troponin I 0.17H 11/04/16 21:55: Total Creatine Kinase 54, Creatine Kinase MB 2.1, Creatine Kinase MB Relative Index 3.88, Troponin I 0.20H 11/05/16 04:57: Anion Gap 10, Blood Urea Nitrogen 27H, Creatinine 1.00, Sodium Level 140, Potassium Level 4.0, Chloride Level 105, Carbon Dioxide Level 25, Calcium Level 8.8, Total Creatine Kinase 43, Creatine Kinase MB 1.8, Creatine Kinase MB Relative Index 4.18H, Glomerular Filtration Rate 56.5, Troponin I 0.22H, Albumin 2.5L, Phosphorus Level 3.9 CBC/BMP Laboratory Tests 11/04/16 14:39 Calcium Level 9.5, Total Creatine Kinase 59, Red Blood Count 4.42, Mean Corpuscular Volume 100.0 H, Mean Corpuscular Hemoglobin 30.9, Mean Corpuscular Hemoglobin Concent 30.9 L, Red Cell Distribution Width 14.6 H, Neutrophils (%) ( Auto) 85.2 H, Lymphocytes (%) (Auto) 7.9 L, Monocytes (%) (Auto) 5.0, Eosinophils (%) (Auto) 0.4, Basophils (%) (Auto) 0.4, Neutrophils # (Auto) 7.3, Lymphocytes # (Auto) 0.8 L, Monocytes # (Auto) 0.4, Eosinophils # (Auto) 0.0, Basophils # (Auto) 0.0 11/05/16 04:57 Red Blood Count 4.01, Mean Corpuscular Volume 100.2 H, Mean Corpuscular Hemoglobin 31.8, Mean Corpuscular Hemoglobin Concent 31.8 L, Red Cell Distribution Width 14.7 H, Anion Gap 10 Microbiology Microbiology 11/04/16 Blood Culture, Received Pending 11/04/16 Blood Culture, Received Pending CATHERINE STEELE DO Nov 05, 2016 13:25
[2016-11-05] MEDS: DIGOXIN 0.25 MG TAB PO SCH (19:04)
[2016-11-05] MEDS: FUROSEMIDE 20 MG/2 ML VIAL (J1940) IV SCH (19:04)
--- NOTE | 2016-11-05 19:44 | ECGEPIP ---
Stationary ECG Study [facility] - ED Test Date: 2016-11-04 Pat Name: STEPHENIE FLORES Department: Room: - Gender: F Store Receiving Specialist: hallie : 1935 Requested By: Jayne Gomes Order Number: [id number] Reading MD: Lenka Garrison Measurements Intervals [place] Rate: 95 P: 76 UT: 159 QRS: 101 QRSD: 129 T: 2 QT: 378 QTc: 476 Interpretive Statements SINUS RHYTHM WITH OCCASIONAL VENTRICULAR PREMATURE COMPLEXES WITH OCCASIONAL SUPRAVENTRICULAR PREMATURE COMPLEXES LEFT ATRIAL ENLARGEMENT MARKED RIGHT AXIS DEVIATION RIGHT BUNDLE BRANCH BLOCK POSSIBLE SEPTAL MYOCARDIAL INFARCTION, OF INDETERMINATE AGE NSTTW ABNORMALITY NO PRIOR FOR COMPARISON CLINICAL CORRELATION Electronically Signed On 11-05-2016 19:43:48 EST by Lenka Garrison
[2016-11-05] MEDS ORDERED: DOBUTamine HCL 250,000 MCG in APPROPRIATE DILUENT 1 EA IV SCH (20:00)
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
[2016-11-05] MEDS: CAPTOpril 3.125 MG PER 1/4 TABLET PO SCH (21:01)
[2016-11-06] VITALS (7 sets, daily range): BP systolic 102–130; BP diastolic 50–85
[2016-11-06] MEDS: IPRATROPIUM 0.5MG/ALBUTEROL 2.5MG INH SOL UD 3ML (DUONEB)(J7620) NEB SCH ×4 (00:38→23:41)
[2016-11-06] MEDS: SLF 3 ML SYR IV SCH ×3 (05:19→21:53)
[2016-11-06] MEDS: HEPARIN SOD (PORCINE) 5000 UNITS/ML VIAL SC SCH ×3 (05:20→21:53)
[2016-11-06 05:41] LABS: MEAN CORPUSCULAR HEMOGLOBIN 31.8 pg (27.0-33.0); MEAN CORPUSCULAR HGB CONC 32.6 g/dl (32.0-36.5); MEAN CORPUSCULAR VOLUME 97.6 fl (80.0-96.0); RED CELL DISTRIBUTION WIDTH 13.8 % (11.5-14.5); WHITE BLOOD COUNT 9.2 K/mm3 (4.0-10.0)
[2016-11-06 05:58] LABS: ALBUMIN 2.5 GM/DL (3.2-5.2); CALCIUM LEVEL 8.5 MG/DL (8.8-10.2); CREATININE FOR GFR 1.26 MG/DL (0.55-1.02); GLOMERULAR FILTRATION RATE 43.3 (>32); PHOSPHORUS LEVEL 3.9 MG/DL (2.5-4.9); POTASSIUM SERUM 3.5 MEQ/L (3.5-5.1)
[2016-11-06] MEDS: DOCUSATE SODIUM 100 MG CAP PO SCH ×2 (08:38→21:52)
[2016-11-06] MEDS: NYSTATIN 100,000 UNITS/GM TOPICAL PWD 15 GM TOP SCH (08:38)
[2016-11-06] MEDS: CAPTOpril 3.125 MG PER 1/4 TABLET PO SCH ×2 (08:38→21:52)
[2016-11-06] MEDS: ASPIRIN 81 MG ENTERIC TAB PO SCH (08:39)
[2016-11-06] MEDS: DIGOXIN 0.25 MG TAB PO SCH (08:39)
[2016-11-06] MEDS: CARVedilol 3.125 MG TAB PO SCH ×2 (08:39→21:52)
[2016-11-06] MEDS: VITAMIN D 1,000 INTERNATIONAL UNITS TABLET PO SCH ×2 (08:39→21:52)
[2016-11-06] MEDS: SPIRONOLACTONE 25 MG TAB PO SCH (08:40)
[2016-11-06] MEDS: FUROSEMIDE 20 MG/2 ML VIAL (J1940) IV SCH ×2 (08:40→16:00)
[2016-11-06] MEDS: CYANOCOBALAMIN 500 MCG TAB PO SCH (08:40)
[2016-11-06] MEDS: MOM 30ML SUSPENSION UDC PO SCH (10:05)
--- NOTE | 2016-11-06 14:13 | IPNPDOC ---
Assessment/Plan Date Seen The patient was seen on 11/06/16. Problems Problems: (1) CHF (congestive heart failure) Status: Acute Problem Text: * pt has systolic CHF with EF of 25% * Dr Toledo is consulted * continue Pt's home diuretics * pt was started on dobutamine and lasix by dr toledo (2) Troponin level elevated Status: Resolved Problem Text: * likely secondary to respiratory distress * will continue to trend * spoke with Dr toledo who agreed to see pt in consultation * she is not a candidate for intervention (3) COPD exacerbation Status: Acute Problem Text: * continue duonebs (4) HTN (hypertension) Status: Chronic Response to Treatment: Stable (5) Cachexia Status: Chronic Response to Treatment: Stable Plan / VTE VTE Prophylaxis Ordered?: Yes Subjective Review of Systems CC/HPI The patient is a 80-year-old female admitted with a reason for visit of Copd Exacerbation. Events since last encounter pt seen and examined, complaining of constipation Pulmonary: Denies: Cough, Dyspnea Cardiovascular: Denies: Chest Pain, Lt Headedness, Orthopnea, Palpitations, Paroxysmal Noc. Dyspnea Gastrointestinal: Denies: Abdominal Pain, Diarrhea, Nausea, Vomiting Objective Physical Examination General Exam: Positive: No Acute Distress Eye Exam: Positive: PERRLA Chest Exam: Positive: Clear to auscultation, Normal air movement Heart Exam: Positive: Rate Normal Abdomen Exam: Positive: Normal bowel sounds, Soft, Negative: Hepatospenomegaly, Tenderness Extremity Exam: Positive: Edema Vital Signs/I&O Vital Signs Date Time Temp Pulse Resp B/P Pulse Ox O2 Delivery O2 Flow Rate FiO2 11/06/16 12:00 96.8 80 20 107/85 97 Room Air I&O- Last 24 Hours up to 6 AM 11/06/16 05:59 Intake Total 1060 ml Output Total 750 ml Balance 310 ml Laboratory Data Labs 24H Laboratory Tests 2 11/06/16 05:17: Albumin 2.5L, Blood Urea Nitrogen 30H, Creatinine 1.26H, Sodium Level 140, Potassium Level 3.5, Chloride Level 102, Carbon Dioxide Level 29, Anion Gap 9, Calcium Level 8.5L, Glomerular Filtration Rate 43.3, Phosphorus Level 3.9 CBC/BMP Laboratory Tests 11/06/16 05:17 Anion Gap 9, Red Blood Count 3.75 L, Mean Corpuscular Volume 97.6 H, Mean Corpuscular Hemoglobin 31.8, Mean Corpuscular Hemoglobin Concent 32.6, Red Cell Distribution Width 13.8 Microbiology Microbiology 11/04/16 Blood Culture - Preliminary, Resulted No growth after 24 hours . All specim... 11/04/16 Blood Culture - Preliminary, Resulted No growth after 24 hours . All specim... CATHERINE STEELE DO Nov 06, 2016 14:13
[2016-11-06] MEDS: DOBUTamine HCL 250,000 MCG in APPROPRIATE DILUENT 1 EA IV SCH (15:54)
[2016-11-06] MEDS: POTASSIUM CHLORIDE 10% LIQ 20 MEQ/15 ML UDC PO SCH ×2 (15:54→18:16)
--- NOTE | 2016-11-06 18:04 | IPN ---
DATE: 11/06/2016 CARDIOLOGY PROGRESS NOTE SUBJECTIVE: The patient claims to be feeling quite well today. No further shortness of breath. Has remained free of any chest discomfort. No dizziness or faintness. Continues to be anxious to go home. OBJECTIVE: Frail, very thin, petite elderly lady lying comfortably with the head of bed elevated 30 degrees. No pallor or cyanosis. Heart rate 88 beats per minute and regular with occasional irregularity. Blood pressure 110/60 on low-dose dobutamine intravenous (IV) infusion. Respiratory rate 18 per minute, O2 saturation 97% on room air. Afebrile. Weight today is recorded to be slightly higher than yesterday despite an apparent negative fluid balance. Normal oral moisture. Trachea midline. Neck veins remain at least 8 cm above sternal angle. Continues to have increased AP chest diameter with bibasilar dullness posteriorly. No inspiratory rales. Slight prolongation of expiration but no audible wheeze. Heart sounds are unchanged. Sacral and lower extremity pitting edema has decreased. COOK SPECIALTY: Underlying sinus rhythm with occasional isolated PAC and PVC. No complex rhythm disturbance. LABORATORY DATA: Blood work today shows a hemoglobin down to 11.9 but no manifest gastrointestinal (GI) bleeding. White blood cell count and platelet counts were normal. Electrolytes show drop in her serum potassium from 4 yesterday to 3.5 today. Slight increase in bicarb from 25 to 29 today. Slight increase in BUN to 30 from 27 yesterday and increasing creatinine from 1.0 to 1.26 today. Fasting glucose 103. Albumin remains low at 2.5. IMPRESSION/PLAN: 1. Heart failure (systolic and diastolic/acute on chronic): Remains free of dyspnea on her limited level of activity. Signs of systemic edema have definitely decreased since yesterday with her low-dose IV dobutamine infusion and IV Lasix. Though her blood pressure has actually increased, curiously her blood urea nitrogen (BUN) and creatinine have also increased which is somewhat of a surprise. I have elected to increase her dobutamine infusion slightly to 5 mcg/kg per minute, but will continue the same dose of IV Lasix for now. I have also increased her spironolactone dosage to 12.5 mg twice a day and with her current potassium I have also given her oral potassium chloride (KCl) replacement. No change has been made to her present digoxin, low-dose captopril and low-dose carvedilol therapies. 2. Abnormal electrocardiogram (EKG)/right bundle branch block: Has been free of any significant rhythm disturbance on dobutamine. No chest pain. No followup EKG or Troponin I level today. We are focusing on optimal control of her congested state to provide improved myocardial perfusion. 3. Dilated cardiomyopathy: As per number one assessment. 4. Mitral and aortic valve disorder (nonrheumatic)/mitral and aortic insufficiency: Has no auscultatory change today. No symptom or sign of endocarditis and blood cultures are negative after 48 hours. We are hoping to continue to facilitate diuresis prior to possible discharge home within the next few days. We will request cardiac rehabilitation to gradually increase her ambulation. Thank you.
[2016-11-06] MEDS: SPIRONOLACTONE 12.5MG PER 1/2 TABLET PO SCH (21:52)
--- NOTE | 2016-11-06 21:57 | EDDOCDS ---
Physician Documentation [facility] Name: Flor Christina Age: 80 yrs Sex: Female : 1935 Arrival Date: 11/04/2016 Time: 13:27 Bed 21 Private MD: Venessa Mitchell Disposition: 11/04 18:22 Critical Care:. ml Disposition: 11/04/16 16:20 Hospitalization ordered by Vik Rivers for Inpatient Admission. Preliminary diagnosis are Acute combined systolic (congestive) and diastolic (congestive) heart failure, Dyspnea, Chronic obstructive pulmonary disease with (acute) exacerbation. - Bed requested for PCU. - Status is Inpatient Admission. jmb - Condition is Stable. - Problem is new. - Symptoms are unchanged. Historical: - Allergies: Morphine; - Home Meds: 1. Colace 100 mg oral cap 1 cap 2 times per day 2. Vitamin D Oral 1,000 unit daily 3. Tylenol 325 mg Oral tab 2 tabs as needed 4. Fergon 240 mg (27 mg iron) oral tab 2 tab daily 5. Vitamin B-12 1,000 mcg Oral tab daily 6. aspirin 81 mg Oral tab 1 tab once daily 7. multivitamin Oral cap 1 tablet daily 8. ibandronate 150 mg oral tab 1 tab once moly 9. chlorthalidone 25 mg Oral tab 0.5 tab once daily 10. carvedilol 3.125 mg oral tab 1 tab 2 times per day 11. Arnuity Ellipta 100 mcg/actuation inhalation dsdv 1 puff once daily 12. spironolactone 25 mg Oral tab 12.5 mg once daily - PMHx: COPD; Hypertension; - PSHx: Hip Arthroplasty, Left; Partial gastrectomy; - Social history: Smoking status: Patient states was never smoker of tobacco. No barriers to communication noted. - Family history: Not pertinent. - : The pt / caregiver states he / she is not on anticoagulants. Home medication list is obtained from the patient. - Exposure Risk Screening:: None identified. Vital Signs: 13:30 BP 114 / 63; Pulse 95; Resp 16; Temp 96.3(T); Pulse Ox 97% on R/A; Weight 27.67 kg / 61 nb2 lbs (R); Height 5 ft. 5 in. (165.10 cm) (R); Pain 3/10; 16:49 BP 141 / 70 (auto/); jmb 16:50 Pulse 104 MON; Pulse Ox 96% ; jmb 17:04 BP 137 / 67 (auto/); jmb 17:05 Pulse 98 MON; Pulse Ox 96% ; jmb 17:19 BP 140 / 70 (auto/); jmb 17:20 Pulse 98 MON; Pulse Ox 96% ; jmb 17:34 BP 139 / 90 (auto/); jmb 17:34 Pulse 102 MON; Pulse Ox 97% ; jmb 17:49 BP 133 / 65 (auto/); jmb 17:50 Pulse 100 MON; Pulse Ox 98% ; jmb 18:04 BP 129 / 69 (auto/); jmb 18:05 Pulse 98 MON; Pulse Ox 96% ; jmb 18:19 BP 135 / 83 (auto/); jmb 18:20 Pulse 104 MON; jmb 18:34 BP 133 / 82 (auto/); jmb 18:34 Pulse 106 MON; jmb 18:34 Resp 20; Temp 97.4(O); Pulse Ox 96% on R/A; Pain 0/10; jmb 18:49 BP 133 / 65 (auto/); jmb 18:50 Pulse 100 MON; Pulse Ox 95% ; jmb 19:04 BP 109 / 59 (auto/); jmb 19:04 Pulse 96 MON; Pulse Ox 96% ; jmb 19:19 BP 98 / 68 (auto/); jmb 19:19 Pulse 96 MON; Pulse Ox 93% ; jmb 19:34 BP 119 / 75 (auto/); jmb 19:35 Pulse 100 MON; Pulse Ox 94% ; jmb 19:49 BP 122 / 60 (auto/); jmb 19:50 Pulse 102 MON; Pulse Ox 96% ; jmb 20:04 BP 126 / 64 (auto/); jmb 20:05 Pulse 98 MON; Pulse Ox 95% ; jmb 20:19 BP 122 / 71 (auto/); jmb 20:20 Pulse 102 MON; Pulse Ox 95% ; jmb 20:34 BP 118 / 64 (auto/); jmb 20:35 Pulse 100 MON; Pulse Ox 96% ; jmb 20:55 BP 118 / 64; Pulse 99; Resp 18 S; Temp 97.1(O); Pulse Ox 97% on R/A; Pain 0/10; jp4 13:30 Body Mass Index 10.15 (27.67 kg, 165.10 cm) nb2 MDM: 14:28 IV Saline Lock ordered. ml 14:28 -Blood Culture (Adults Only), peripheral from different site, or from device/port/PICC ml etc. if present ordered. 14:28 Albuterol 5 mg Nebulizer once ordered. ml 14:28 Albuterol-Ipratropium 3 ml Inhalation once ordered. ml 14:28 Call Respiratory ordered. ml 14:28 Solu-MEDROL 125 mg IVP once ordered. ml 14:29 CBC with Diff Ordered. EDMS 14:29 MED Profile Ordered. EDMS 14:29 BNP Ordered. EDMS 14:29 CIP Ordered. EDMS 14:29 Troponin Ordered. EDMS 14:29 -Blood Culture Ordered. EDMS 14:29 Chest, 1 View Ordered. EDMS 14:30 ECG WITH READING ER PHYS+CARDIAG ordered. EDMS 14:30 US Lower Extremity R/O DVT Ordered. EDMS 14:31 Hip, (AP/Lat) Ordered. EDMS 14:31 Femur Ordered. EDMS 14:40 Call Respiratory complete. sd7 14:50 BLOOD CULTURES Ordered. EDMS 15:05 -Blood Culture (Adults Only), peripheral from different site, or from device/port/PICC lbd etc. if present complete. 15:32 CBC with Diff Reviewed. ml 15:32 MED Profile Reviewed. ml 15:32 BNP Reviewed. ml 15:32 Troponin Reviewed. ml 15:32 CIP Reviewed. ml 15:33 Fuels Engineer/Pulse Ox/q 15 min VS ordered. ml 15:33 Rhythm Strip to chart ordered. ml 15:34 Misc. Nursing Order ordered. ml 15:44 BED REQUEST+ADM ordered. EDMS 17:21 Financial registration complete. [id number] 17:38 Admission / Observation Status ordered. EDMS 17:38 REGULAR DIET ordered. EDMS 17:40 PHYSICAL THERAPY EVAL & TREAT ordered. EDMS 17:46 Admission / Observation Status ordered. EDMS 18:22 [facility] Payment Agreement was scanned into [employer] and attached to record. [email or web address] 19:31 COMPLETE BLOOD COUNT Ordered. EDMS 19:31 RENAL PROFILE Ordered. EDMS 20:51 CARDIAC MARKER PANEL Ordered. EDMS 20:52 CARDIAC MARKER PANEL Ordered. EDMS 11/05 09:41 T-Sheet-- Draft Copy was scanned into [employer] and attached to record. gb 09:41 ECG/EKG was scanned into [employer] and attached to record. gb 09:42 Radiology Report was scanned into [employer] and attached to record. gb 15:11 T-Sheet-- Draft Copy was scanned into [employer] and attached to record. gb Administered Medications: 11/04 14:32 Drug: Albuterol 5 mg [albuterol sulfate 2.5 mg/0.5 mL solution for nebulization (1 mL)] 7 Route: Nebulizer; 14:45 Follow up: Response: Nebulizer completed 14:32 Drug: Albuterol-Ipratropium 3 ml [ipratropium-albuterol 0.5 mg-3 mg(2.5 mg base)/3 mL nebulization soln (3 mL)] Route: Inhalation; 14:45 Follow up: Response: Nebulizer completed 15:29 Drug: Solu-MEDROL 125 mg [Solu-Medrol 500 mg intravenous solution (125 mg)] Route: IVP; mk4 Site: right antecubital; Critical Care Time: 18:22 Critical care time: Bedside Care: 120 minutes, Consultation: 10 minutes. Total time: ml 130 minutes Signatures: Dispatcher [employer] EDMS Jayne Gomes MD MD ml Olena Bryant, Food Service Unit lbd Maldonado Watkins, RN Tyesha Lopez, Reg Reg gb Shanell Liu, Food Service Unit ml3 Barney DonaldRN Antonia Bautista RN RN 4 Dominga Gay,RT RT sd7 Shirley Cheek RN RN mem Sorenson, Kimberly, Reg Reg [email or web address] The chart was reviewed and I authenticate all verbal orders and agree with the evaluation and treatment provided.Attachments: 18:22 [facility] Payment Agreement [email or web address] 09:41 ECG/EKG gb 15:11 T-Sheet-- Draft Copy gb Chart Complete MTDD
--- NOTE | 2016-11-06 21:57 | EDDOCDS ---
Physician Documentation [facility] Name: Flor Christina Age: 80 yrs Sex: Female : 1935 Arrival Date: 11/04/2016 Time: 13:27 Bed 21 Private MD: Venessa Mitchell Disposition: 11/04 18:22 Critical Care:. ml Disposition: 11/04/16 16:20 Hospitalization ordered by Vik Rivers for Inpatient Admission. Preliminary diagnosis are Acute combined systolic (congestive) and diastolic (congestive) heart failure, Dyspnea, Chronic obstructive pulmonary disease with (acute) exacerbation. - Bed requested for PCU. - Status is Inpatient Admission. jmb - Condition is Stable. - Problem is new. - Symptoms are unchanged. Historical: - Allergies: Morphine; - Home Meds: 1. Colace 100 mg oral cap 1 cap 2 times per day 2. Vitamin D Oral 1,000 unit daily 3. Tylenol 325 mg Oral tab 2 tabs as needed 4. Fergon 240 mg (27 mg iron) oral tab 2 tab daily 5. Vitamin B-12 1,000 mcg Oral tab daily 6. aspirin 81 mg Oral tab 1 tab once daily 7. multivitamin Oral cap 1 tablet daily 8. ibandronate 150 mg oral tab 1 tab once moly 9. chlorthalidone 25 mg Oral tab 0.5 tab once daily 10. carvedilol 3.125 mg oral tab 1 tab 2 times per day 11. Arnuity Ellipta 100 mcg/actuation inhalation dsdv 1 puff once daily 12. spironolactone 25 mg Oral tab 12.5 mg once daily - PMHx: COPD; Hypertension; - PSHx: Hip Arthroplasty, Left; Partial gastrectomy; - Social history: Smoking status: Patient states was never smoker of tobacco. No barriers to communication noted. - Family history: Not pertinent. - : The pt / caregiver states he / she is not on anticoagulants. Home medication list is obtained from the patient. - Exposure Risk Screening:: None identified. Vital Signs: 13:30 BP 114 / 63; Pulse 95; Resp 16; Temp 96.3(T); Pulse Ox 97% on R/A; Weight 27.67 kg / 61 nb2 lbs (R); Height 5 ft. 5 in. (165.10 cm) (R); Pain 3/10; 16:49 BP 141 / 70 (auto/); jmb 16:50 Pulse 104 MON; Pulse Ox 96% ; jmb 17:04 BP 137 / 67 (auto/); jmb 17:05 Pulse 98 MON; Pulse Ox 96% ; jmb 17:19 BP 140 / 70 (auto/); jmb 17:20 Pulse 98 MON; Pulse Ox 96% ; jmb 17:34 BP 139 / 90 (auto/); jmb 17:34 Pulse 102 MON; Pulse Ox 97% ; jmb 17:49 BP 133 / 65 (auto/); jmb 17:50 Pulse 100 MON; Pulse Ox 98% ; jmb 18:04 BP 129 / 69 (auto/); jmb 18:05 Pulse 98 MON; Pulse Ox 96% ; jmb 18:19 BP 135 / 83 (auto/); jmb 18:20 Pulse 104 MON; jmb 18:34 BP 133 / 82 (auto/); jmb 18:34 Pulse 106 MON; jmb 18:34 Resp 20; Temp 97.4(O); Pulse Ox 96% on R/A; Pain 0/10; jmb 18:49 BP 133 / 65 (auto/); jmb 18:50 Pulse 100 MON; Pulse Ox 95% ; jmb 19:04 BP 109 / 59 (auto/); jmb 19:04 Pulse 96 MON; Pulse Ox 96% ; jmb 19:19 BP 98 / 68 (auto/); jmb 19:19 Pulse 96 MON; Pulse Ox 93% ; jmb 19:34 BP 119 / 75 (auto/); jmb 19:35 Pulse 100 MON; Pulse Ox 94% ; jmb 19:49 BP 122 / 60 (auto/); jmb 19:50 Pulse 102 MON; Pulse Ox 96% ; jmb 20:04 BP 126 / 64 (auto/); jmb 20:05 Pulse 98 MON; Pulse Ox 95% ; jmb 20:19 BP 122 / 71 (auto/); jmb 20:20 Pulse 102 MON; Pulse Ox 95% ; jmb 20:34 BP 118 / 64 (auto/); jmb 20:35 Pulse 100 MON; Pulse Ox 96% ; jmb 20:55 BP 118 / 64; Pulse 99; Resp 18 S; Temp 97.1(O); Pulse Ox 97% on R/A; Pain 0/10; jp4 13:30 Body Mass Index 10.15 (27.67 kg, 165.10 cm) nb2 MDM: 14:28 IV Saline Lock ordered. ml 14:28 -Blood Culture (Adults Only), peripheral from different site, or from device/port/PICC ml etc. if present ordered. 14:28 Albuterol 5 mg Nebulizer once ordered. ml 14:28 Albuterol-Ipratropium 3 ml Inhalation once ordered. ml 14:28 Call Respiratory ordered. ml 14:28 Solu-MEDROL 125 mg IVP once ordered. ml 14:29 CBC with Diff Ordered. EDMS 14:29 MED Profile Ordered. EDMS 14:29 BNP Ordered. EDMS 14:29 CIP Ordered. EDMS 14:29 Troponin Ordered. EDMS 14:29 -Blood Culture Ordered. EDMS 14:29 Chest, 1 View Ordered. EDMS 14:30 ECG WITH READING ER PHYS+CARDIAG ordered. EDMS 14:30 US Lower Extremity R/O DVT Ordered. EDMS 14:31 Hip, (AP/Lat) Ordered. EDMS 14:31 Femur Ordered. EDMS 14:40 Call Respiratory complete. sd7 14:50 BLOOD CULTURES Ordered. EDMS 15:05 -Blood Culture (Adults Only), peripheral from different site, or from device/port/PICC lbd etc. if present complete. 15:32 CBC with Diff Reviewed. ml 15:32 MED Profile Reviewed. ml 15:32 BNP Reviewed. ml 15:32 Troponin Reviewed. ml 15:32 CIP Reviewed. ml 15:33 Broach Grinder/Pulse Ox/q 15 min VS ordered. ml 15:33 Rhythm Strip to chart ordered. ml 15:34 Misc. Nursing Order ordered. ml 15:44 BED REQUEST+ADM ordered. EDMS 17:21 Financial registration complete. [email or web address] 17:38 Admission / Observation Status ordered. EDMS 17:38 REGULAR DIET ordered. EDMS 17:40 PHYSICAL THERAPY EVAL & TREAT ordered. EDMS 17:46 Admission / Observation Status ordered. EDMS 18:22 [facility] Payment Agreement was scanned into [employer] and attached to record. [email or web address] 19:31 COMPLETE BLOOD COUNT Ordered. EDMS 19:31 RENAL PROFILE Ordered. EDMS 20:51 CARDIAC MARKER PANEL Ordered. EDMS 20:52 CARDIAC MARKER PANEL Ordered. EDMS 11/05 09:41 T-Sheet-- Draft Copy was scanned into [employer] and attached to record. gb 09:41 ECG/EKG was scanned into [employer] and attached to record. gb 09:42 Radiology Report was scanned into [employer] and attached to record. gb 15:11 T-Sheet-- Draft Copy was scanned into [employer] and attached to record. gb Administered Medications: 11/04 14:32 Drug: Albuterol 5 mg [albuterol sulfate 2.5 mg/0.5 mL solution for nebulization (1 mL)] 7 Route: Nebulizer; 14:45 Follow up: Response: Nebulizer completed 14:32 Drug: Albuterol-Ipratropium 3 ml [ipratropium-albuterol 0.5 mg-3 mg(2.5 mg base)/3 mL nebulization soln (3 mL)] Route: Inhalation; 14:45 Follow up: Response: Nebulizer completed 15:29 Drug: Solu-MEDROL 125 mg [Solu-Medrol 500 mg intravenous solution (125 mg)] Route: IVP; mk4 Site: right antecubital; Critical Care Time: 18:22 Critical care time: Bedside Care: 120 minutes, Consultation: 10 minutes. Total time: ml 130 minutes Signatures: Dispatcher [employer] EDMS Jayne Gomes MD MD ml Olena Bryant, Radiation / Chemistry Technician Unit lbd Maldonado Watkins, RN Tyesha Lpoez, Reg Reg gb Shanell Liu, Radiation / Chemistry Technician Unit ml3 Barney DonaldRN Antonia Bautista RN RN 4 Dominga Gay,RT RT sd7 Shirley Cheek RN RN mem Sorenson, Kimberly, Reg Reg [email or web address] The chart was reviewed and I authenticate all verbal orders and agree with the evaluation and treatment provided.Attachments: 18:22 [facility] Payment Agreement [email or web address] 09:41 ECG/EKG gb 15:11 T-Sheet-- Draft Copy gb Chart Complete MTDD
--- NOTE | 2016-11-06 21:58 | EDDOCDS ---
Nurse's Notes [facility] Name: Flor Christina Age: 80 yrs Sex: Female : 1935 Arrival Date: 11/04/2016 Time: 13:27 Bed 21 Private MD: Venessa Mitchell Diagnosis: Acute combined systolic (congestive) and diastolic (congestive) heart failure;Dyspnea;Chronic obstructive pulmonary disease with (acute) exacerbation Presentation: 11/04 13:33 Presenting complaint: Patient states: having diff beathing for last few days. dry bcj cough. more SOB with any activity. also states not eating well/feels tired all the time. denies chest pain. Adult Sepsis Screening: The patient does not have new or worsening altered mentation. Patient's respiratory rate is less than 22. Systolic blood pressure is greater than 100. Patient has a qSOFA score of 0- Negative Sepsis Screen. Suicide/Homicide risk assessment- the patient denies having any suicidal and/or homicidal ideations and does not present with any other emotional, behavioral or mental health complaints. 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 Transition of care: patient was not received from another setting of care. 13:33 Acuity: JUSTICE Level 3 bcj 13:33 Method Of Arrival: Walkin/Carried/Asstd bcj Triage Assessment: 13:45 General: Appears in no apparent distress, comfortable, Behavior is cooperative. Pain: bcj Location: left leg Pain currently is 3 out of 10 on a pain scale. Respiratory: Onset: The symptoms/episode began/occurred at an unknown time. Historical: - Allergies: Morphine; - Home Meds: 1. Colace 100 mg oral cap 1 cap 2 times per day 2. Vitamin D Oral 1,000 unit daily 3. Tylenol 325 mg Oral tab 2 tabs as needed 4. Fergon 240 mg (27 mg iron) oral tab 2 tab daily 5. Vitamin B-12 1,000 mcg Oral tab daily 6. aspirin 81 mg Oral tab 1 tab once daily 7. multivitamin Oral cap 1 tablet daily 8. ibandronate 150 mg oral tab 1 tab once moly 9. chlorthalidone 25 mg Oral tab 0.5 tab once daily 10. carvedilol 3.125 mg oral tab 1 tab 2 times per day 11. Arnuity Ellipta 100 mcg/actuation inhalation dsdv 1 puff once daily 12. spironolactone 25 mg Oral tab 12.5 mg once daily - PMHx: COPD; Hypertension; - PSHx: Hip Arthroplasty, Left; Partial gastrectomy; - Social history: Smoking status: Patient states was never smoker of tobacco. No barriers to communication noted. - Family history: Not pertinent. - : The pt / caregiver states he / she is not on anticoagulants. Home medication list is obtained from the patient. - Exposure Risk Screening:: None identified. Screenin:40 Screening information is obtained from the patient. Fall risk: No risks identified. mk4 Assistance ADL's: requires no assistance with activities of daily living. Abuse/DV Screen: The patient / caregiver reports he/she is: not in a situation that causes fear, pain or injury. Nutritional screening: No deficits noted. Advance Directives: Currently, there is no health care proxy. There is no active DNR order. There is no living will. There is no Power of Fire Prevention Bureau Captain. Advance directive information has not previously been placed in an [facility] medical record. home support is adequate. Assessment: 14:13 General: Appears in no apparent distress. General: c/o pain left leg. Neurological: mk4 Level of Consciousness is awake, alert. Cardiovascular: No deficits noted. Cardiovascular: Chest pain is denied. Respiratory: Airway is patent Respiratory effort is even, unlabored, Respiratory pattern is regular, Breath sounds are diminished bilaterally. Derm: Skin is thin, with poor turgor Skin is pale. 15:39 General: General: Appears in no apparent distress, comfortable, Behavior is pleasant. mk4 15:43 Pain: Denies pain. Neurological: Level of Consciousness is awake, alert. Respiratory: mk4 Airway is patent Respiratory effort is even, unlabored, Respiratory pattern is regular. 16:59 General: Appears in no apparent distress, comfortable, Behavior is appropriate for age, jmb cooperative, Patient laying on stretcher, appears comfortable. No voiced complaints at this time. . Neurological: Level of Consciousness is awake, alert, obeys commands, Oriented to person, place, time, Hospice Nurse are weak bilaterally Speech is normal, Facial symmetry appears normal, Facial symmetry: tongue is midline. Cardiovascular: Capillary refill < 3 seconds Heart tones S1 S2 present Pulses are all present. Rhythm is regular Chest pain is denied. Respiratory: Airway is patent Respiratory effort is even, unlabored, Respiratory pattern is regular, symmetrical, Breath sounds are diminished bilaterally. GI: Abdomen is non- distended Bowel sounds present X 4 quads. Abd is soft and non tender X 4 quads. Derm: Skin is pink, warm & dry. Musculoskeletal: Range of motion intact in all extremities. 17:43 General: Appears in no apparent distress, comfortable, Behavior is appropriate for age, jmb cooperative, Patient laying on stretcher with family at bedside. NO voiced complaints at this time. . Neurological: Level of Consciousness is awake, alert, obeys commands, Oriented to person, place, time. Respiratory: Airway is patent Respiratory effort is even, unlabored, Respiratory pattern is regular, symmetrical. 18:35 General: Appears in no apparent distress, comfortable, Behavior is appropriate for age, jmb cooperative. Neurological: Level of Consciousness is awake, alert, obeys commands, Oriented to person, place, time. Respiratory: Airway is patent Respiratory effort is even, unlabored, Respiratory pattern is regular, symmetrical. 18:55 General: Appears in no apparent distress, comfortable, Behavior is appropriate for age, jmb cooperative, Patient laying on stretcher, appears comfortable. Patient voices no complaints at this time. . Neurological: Level of Consciousness is awake, alert, obeys commands, Oriented to person, place, time. Respiratory: Airway is patent Respiratory effort is even, unlabored, Respiratory pattern is regular, symmetrical. Vital Signs: 13:30 BP 114 / 63; Pulse 95; Resp 16; Temp 96.3(T); Pulse Ox 97% on R/A; Weight 27.67 kg (R); nb2 Height 5 ft. 5 in. (165.10 cm) (R); Pain 3/10; 16:49 BP 141 / 70 (auto/); jmb 16:50 Pulse 104 MON; Pulse Ox 96% ; jmb 17:04 BP 137 / 67 (auto/); jmb 17:05 Pulse 98 MON; Pulse Ox 96% ; jmb 17:19 BP 140 / 70 (auto/); jmb 17:20 Pulse 98 MON; Pulse Ox 96% ; jmb 17:34 BP 139 / 90 (auto/); jmb 17:34 Pulse 102 MON; Pulse Ox 97% ; jmb 17:49 BP 133 / 65 (auto/); jmb 17:50 Pulse 100 MON; Pulse Ox 98% ; jmb 18:04 BP 129 / 69 (auto/); jmb 18:05 Pulse 98 MON; Pulse Ox 96% ; jmb 18:19 BP 135 / 83 (auto/); jmb 18:20 Pulse 104 MON; jmb 18:34 BP 133 / 82 (auto/); jmb 18:34 Pulse 106 MON; jmb 18:34 Resp 20; Temp 97.4(O); Pulse Ox 96% on R/A; Pain 0/10; jmb 18:49 BP 133 / 65 (auto/); jmb 18:50 Pulse 100 MON; Pulse Ox 95% ; jmb 19:04 BP 109 / 59 (auto/); jmb 19:04 Pulse 96 MON; Pulse Ox 96% ; jmb 19:19 BP 98 / 68 (auto/); jmb 19:19 Pulse 96 MON; Pulse Ox 93% ; jmb 19:34 BP 119 / 75 (auto/); jmb 19:35 Pulse 100 MON; Pulse Ox 94% ; jmb 19:49 BP 122 / 60 (auto/); jmb 19:50 Pulse 102 MON; Pulse Ox 96% ; jmb 20:04 BP 126 / 64 (auto/); jmb 20:05 Pulse 98 MON; Pulse Ox 95% ; jmb 20:19 BP 122 / 71 (auto/); jmb 20:20 Pulse 102 MON; Pulse Ox 95% ; jmb 20:34 BP 118 / 64 (auto/); jmb 20:35 Pulse 100 MON; Pulse Ox 96% ; jmb 20:55 BP 118 / 64; Pulse 99; Resp 18 S; Temp 97.1(O); Pulse Ox 97% on R/A; Pain 0/10; jp4 13:30 Body Mass Index 10.15 (27.67 kg, 165.10 cm) nb2 Vitals: 13:30 Log In Time: November 04, 2016 at 13:28. nb2 ED Course: 13:29 Patient visited by Celia Salmeron. nb2 13:29 Patient moved to Waiting nb2 13:30 Venessa Mitchell is Private Physician. nb2 13:32 Patient moved to Pre RCE nb2 13:38 Triage Initiated bcj 13:46 Patient visited by Maldonado Watkins RN. bcj 14:07 Patient moved to Triage 1 ar3 14:08 Patient moved to Pre RCE bcj 14:13 Patient moved to I9 / kpj 14:14 Jayne Gomes MD is Attending Physician. ml 14:14 Patient visited by Jayne Gomes MD. ml 14:42 CBC with Diff Sent. mk4 14:42 MED Profile Sent. mk4 14:42 BNP Sent. mk4 14:42 CIP Sent. mk4 14:42 Troponin Sent. mk4 14:42 -Blood Culture Sent. mk4 14:42 Inserted saline lock: 20 gauge in right antecubital area and blood collected. No mk4 procedures done that require assistance. 14:46 Patient visited by Antonia Johnson, RN. mk4 15:01 Patient moved to Ultrasound br3 15:24 Patient moved to I9 br3 15:28 Patient visited by Antonia Johnson, RN. mk4 15:40 The patient / caregiver is instructed regarding the plan of care and ED course. mk4 15:49 Patient moved to 21 srm 15:52 US Lower Extremity R/O DVT Returned. EDMS 16:19 Vik Rivers DO is Hospitalizing Provider. ml 17:01 Patient visited by Barney Donald RN. jmb 17:43 Patient visited by Barney Donald RN. jmb 18:10 Hip, (AP/Lat) Returned. EDMS 18:10 Femur Returned. EDMS 18:11 Chest, 1 View Returned. EDMS 18:22 [facility] [place] Payment Agreement was scanned into [employer] and attached to record. ks16 18:57 Patient visited by Barney Donald RN. jmb 20:55 Patient visited by Mike Saunders. jp4 11/05 09:41 T-Sheet-- Draft Copy was scanned into [employer] and attached to record. gb 09:41 ECG/EKG was scanned into [employer] and attached to record. gb 09:42 Radiology Report was scanned into [employer] and attached to record. gb 15:11 T-Sheet-- Draft Copy was scanned into [employer] and attached to record. gb Administered Medications: 11/04 14:32 Drug: Albuterol 5 mg [albuterol sulfate 2.5 mg/0.5 mL solution for nebulization (1 mL)] sd7 Route: Nebulizer; 14:45 Follow up: Response: Nebulizer completed 14:32 Drug: Albuterol-Ipratropium 3 ml [ipratropium-albuterol 0.5 mg-3 mg(2.5 mg base)/3 mL nebulization soln (3 mL)] Route: Inhalation; 14:45 Follow up: Response: Nebulizer completed 15:29 Drug: Solu-MEDROL 125 mg [Solu-Medrol 500 mg intravenous solution (125 mg)] Route: IVP; mk4 Site: right antecubital; RT: 14:32 Initial Med Neb Given as ordered Patient was instructed and evaluated on procedure 7 Patient tolerated procedure well without adverse effect. Respiratory: Breath sounds are diminished bilaterally. Order Results: Lab Order: CBC with Diff; SPEC'M 11/04/16 14:39 Test: WHITE BLOOD COUNT; Value: 8.6; Range: 4.0-10.0; Units: K/mm3; Status: F Test: RED BLOOD COUNT; Value: 4.42; Range: 4.00-5.40; Units: M/mm3; Status: F Test: HEMOGLOBIN; Value: 13.7; Range: 12.0-16.0; Units: g/dl; Status: F Test: HEMATOCRIT; Value: 44.2; Range: 36.0-47.0; Units: %; Status: F Test: MEAN CORPUSCULAR VOLUME; Value: 100.0; Range: 80.0-96.0; Abnormal: Above high normal; Units: fl; Status: F Test: MEAN CORPUSCULAR HEMOGLOBIN; Value: 30.9; Range: 27.0-33.0; Units: pg; Status: F Test: MEAN CORPUSCULAR HGB CONC; Value: 30.9; Range: 32.0-36.5; Abnormal: Below low normal; Units: g/dl; Status: F Test: RED CELL DISTRIBUTION WIDTH; Value: 14.6; Range: 11.5-14.5; Abnormal: Above high normal; Units: %; Status: F Test: PLATELET COUNT, AUTOMATED; Value: 237; Range: 150-450; Units: k/mm3; Status: F Test: NEUTROPHILS %; Value: 85.2; Range: 36.0-66.0; Abnormal: Above high normal; Units: %; Status: F Test: LYMPH %; Value: 7.9; Range: 24.0-44.0; Abnormal: Below low normal; Units: %; Status: F Test: MONO %; Value: 5.0; Range: 0.0-5.0; Units: %; Status: F Test: EOS %; Value: 0.4; Range: 0.0-3.0; Units: %; Status: F Test: BASO %; Value: 0.4; Range: 0.0-1.0; Units: %; Status: F Test: LARGE UNSTAINED CELL %; Value: 1.1; Range: 0.0-4.0; Units: %; Status: F Test: NEUTROPHILS #; Value: 7.3; Range: 1.8-7.7; Units: K/mm3; Status: F Test: LYMPH #; Value: 0.8; Range: 1.5-4.5; Abnormal: Below low normal; Units: K/mm3; Status: F Test: MONO #; Value: 0.4; Range: 0.0-0.8; Units: K/mm3; Status: F Test: EOS #; Value: 0.0; Range: 0.0-0.50; Units: K/mm3; Status: F Test: BASO #; Value: 0.0; Range: 0.0-0.2; Units: K/mm3; Status: F Test: LARGE UNSTAINED CELL #; Value: 0.1; Range: 0.0-0.4; Units: K/mm3; Status: F Lab Order: [facility] Profile; SPEC'M 11/04/16 14:39 Test: GLUCOSE, FASTING; Value: 135; Range: 83-110; Abnormal: Above high normal; Units: MG/DL; Status: F Test: BLOOD UREA NITROGEN; Value: 25; Range: 7-18; Abnormal: Above high normal; Units: MG/DL; Status: F Test: CREATININE FOR GFR; Value: 0.96; Range: 0.55-1.02; Units: MG/DL; Status: F Test: GLOMERULAR FILTRATION RATE; Value: 59.2; Range: >32; Status: F Test: SODIUM LEVEL; Value: 139; Range: 136-145; Units: MEQ/L; Status: F Test: POTASSIUM SERUM; Value: 4.2; Range: 3.5-5.1; Units: MEQ/L; Status: F Test: CHLORIDE LEVEL; Value: 106; Range: 98-107; Units: MEQ/L; Status: F Test: CARBON DIOXIDE LEVEL; Value: 23; Range: 21-32; Units: MEQ/L; Status: F Test: ANION GAP; Value: 10; Range: 8-16; Units: MEQ/L; Status: F Test: CALCIUM LEVEL; Value: 9.5; Range: 8.8-10.2; Units: MG/DL; Status: F Test Note: ; Units are mL/min/1.73 m2 Chronic Kidney Disease Staging per NKF: Stage I & II GFR >=60 Normal to Mildly Decreased Stage III GFR 30-59 Moderately Decreased Stage IV GFR 15-29 Severely Decreased Stage V GFR <15 Very Little GFR Left ESRD GFR <15 on CREDIT INTERVIEWER Lab Order: BNP; SPEC'M 11/04/16 14:39 Test: BRAIN NATRIURETIC PEPTIDE; Value: 2070; Range: <100; Abnormal: Above high normal; Units: PG/ML; Status: F Lab Order: CIP; SPEC'M 11/04/16 14:39 Test: CPK CREATINE PHOSPHOKINASE; Value: 59; Range: 26-192; Units: U/L; Status: F Test: CK-MB VALUE MASS; Value: 2.3; Range: 0.0-3.6; Units: NG/ML; Status: F Test: MB/CK RELATIVE INDEX; Value: 3.89; Range: < OR =4; Status: F Test Note: ; DIAGNOSIS CRITERIA MMB ng/ml Relative Index (RI) NON-AMI < or = 5 N/A C[place]ONE > 5 < or = 4 AMI > 5 > 4 Lab Order: Troponin; SPEC'M 11/04/16 14:39 Test: TROPONIN I; Value: 0.17; Range: < 0.10; Abnormal: Above high normal; Units: NG/ML; Status: F Test Note: ; Troponin I Reference Interval for [employer] LOCI: 99th Percentile= 0.00-0.045 ng/ml Risk Stratification: <= 0.10 ng/ml Decreased Risk for Adverse Clinical Events. 0.10-1.50 ng/ml Increased Risk for Adverse Clinical Events. Evaluation of additional criterion and/or repeat testing in 2-6 hours is suggested to rule out myocardial damage. >= 1.50 ng/ml Indicative of Myocardial Injury. Radiology Order: Chest, 1 View Test: Chest, 1 View REASON FOR EXAMINATION: sob; CHEST:; ; AP supine film of the chest is performed and compared to prior study of; 09/18/2011.; ; The heart size is not well evaluated. There are diffuse bilateral infiltrates.; There are bilateral pleural effusions. The findings are likely on the basis of; CHF and pulmonary edema, but underlying pneumonia cannot be excluded.; ; IMPRESSION:; Findings compatible with CHF and pulmonary edema with effusions. Cannot exclude; underlying pneumonia.; ; Unreviewed; Radiology Order: US Lower Extremity R/O DVT Test: US Lower Extremity R/O DVT REASON FOR EXAMINATION: swelling; Left lower extremity Duplex Doppler venous ultrasound:; ; Real time compression and duplex Doppler interrogation of the left lower; extremity deep venous system is performed. The left common femoral, superficial; femoral and popliteal veins are fully compressible with transducer pressure and; demonstrate normal spontaneous and phasic flow, without evidence of deep venous; thrombosis.; ; Impression:; ; No evidence of deep venous thrombosis of the left lower extremity femoral; popliteal venous system.; ; ; Signed by; Bart Cotter MD 11/04/2016 03:26 P; Radiology Order: Hip, (AP/Lat) Test: Hip, (AP/Lat) REASON FOR EXAMINATION: fall; LEFT HIP:; ; Two views of the left hip are performed.; ; There is no acute fracture or dislocation. There is a metallic prosthesis of the; proximal left femur. Metallic plate and multiple metallic screws are also seen in; the proximal left femur. Vascular calcifications are seen in the soft tissues.; ; IMPRESSION:; Left hip prosthesis and adjacent internal fixation without evidence of acute; fracture or dislocation.; ; Unreviewed; Radiology Order: Femur Test: Femur REASON FOR EXAMINATION: fall; LEFT FEMUR:; ; AP and lateral views of the left femur are performed.; ; There is no acute fracture or dislocation. Metallic prosthesis is noted at the; proximal left femur. There is metallic plate, multiple metallic screws and; cerclage wiring just below that.; ; IMPRESSION:; No acute fracture or dislocation. Metallic internal fixation as well as left hip; prosthesis.; ; ; ; Unreviewed; Outcome: 16:20 Decision to Hospitalize by Provider. 18:50 Discharge Assessment: Patient awake, alert and oriented x 3. No cognitive and/or jmb functional deficits noted. Patient verbalized understanding of disposition instructions. Patient awake and alert. obeys commands, Oriented to person, place and time. Patient verbalized understanding of disposition instructions. Patient has no functional deficits. patient administered narcotics - no. The following High Risk Discharge criteria are identified: None. Admitted to PCU accompanied by nurse, accompanied by tech, via stretcher, on monitor, with chart. Condition: stable. No special radiology studies were completed. Property sent home with patient. 20:56 Patient left the ED. hallieb Signatures: Dispatcher [employer] EDMS Jayne Gomes MD MD ml Jobson, Karen, RN RN Maldonado Simon, RN RN Dorothy Almaraz, RN RN srm Williams, Tyesha, Reg Reg gb Jennifer Luo br3 Nay Wadsworth, MAKE UP EDITOR MAKE UP EDITOR ar3 Barney Donald,RN RN Antonia Brar RN RN renaldo4 Mike Saunders jp4 Dominga Gay,RT RT sd7 Linh Razo, Reg Reg ks16 Celia Salmeron nb2 Corrections: (The following items were deleted from the chart) 15:43 15:39 General: leoncio fang Chart Complete MTDD
[2016-11-07 04:00] VITALS: BP 122/55
[2016-11-07] MEDS: SLF 3 ML SYR IV SCH ×3 (05:10→20:37)
[2016-11-07] MEDS: HEPARIN SOD (PORCINE) 5000 UNITS/ML VIAL SC SCH ×3 (05:10→20:37)
[2016-11-07 05:21] LABS: MEAN CORPUSCULAR HEMOGLOBIN 32.3 pg (27.0-33.0); MEAN CORPUSCULAR HGB CONC 32.8 g/dl (32.0-36.5); MEAN CORPUSCULAR VOLUME 98.3 fl (80.0-96.0); RED CELL DISTRIBUTION WIDTH 13.7 % (11.5-14.5)
[2016-11-07 05:37] LABS: ALBUMIN 2.5 GM/DL (3.2-5.2); CALCIUM LEVEL 8.9 MG/DL (8.8-10.2); CREATININE FOR GFR 1.08 MG/DL (0.55-1.02); GLOMERULAR FILTRATION RATE 51.7 (>32); PHOSPHORUS LEVEL 2.2 MG/DL (2.5-4.9); POTASSIUM SERUM 4.3 MEQ/L (3.5-5.1)
[2016-11-07 07:10] VITALS: BP 121/77
[2016-11-07] MEDS: IPRATROPIUM 0.5MG/ALBUTEROL 2.5MG INH SOL UD 3ML (DUONEB)(J7620) NEB SCH ×2 (08:07→15:09)
[2016-11-07] MEDS: NYSTATIN 100,000 UNITS/GM TOPICAL PWD 15 GM TOP SCH (09:14)
[2016-11-07] MEDS: MOM 30ML SUSPENSION UDC PO SCH (09:14)
[2016-11-07] MEDS: FUROSEMIDE 20 MG/2 ML VIAL (J1940) IV SCH ×2 (09:15→18:03)
[2016-11-07] MEDS: DIGOXIN 0.25 MG TAB PO SCH (09:15)
[2016-11-07] MEDS: DOCUSATE SODIUM 100 MG CAP PO SCH ×2 (09:15→20:36)
[2016-11-07] MEDS: CARVedilol 3.125 MG TAB PO SCH ×2 (09:15→20:37)
[2016-11-07] MEDS: SPIRONOLACTONE 12.5MG PER 1/2 TABLET PO SCH ×2 (09:15→20:36)
[2016-11-07] MEDS: VITAMIN D 1,000 INTERNATIONAL UNITS TABLET PO SCH ×2 (09:16→20:36)
[2016-11-07] MEDS: CYANOCOBALAMIN 500 MCG TAB PO SCH (09:16)
[2016-11-07] MEDS: ASPIRIN 81 MG ENTERIC TAB PO SCH (09:16)
[2016-11-07] MEDS: CAPTOpril 3.125 MG PER 1/4 TABLET PO SCH (09:16)
[2016-11-07 12:00] VITALS: BP 110/56
--- NOTE | 2016-11-07 14:37 | IPN ---
DATE: 11/07/2016 CARDIOLOGY PROGRESS NOTE Has been up in the room with the cardiac rehabilitation program and has been feeling well. Specifically denies any chest discomfort, shortness of breath, or dizziness. Has been tolerating her medications without adverse effect. OBJECTIVE: Pleasant, thin, petite, elderly lady, quite alert and talkative. Lying comfortably with the head of the bed elevated 30 degrees. Heart rate 82 beats per minute and regular with irregularities. Blood pressure 120/60, respiratory rate 18, oxygen saturation 97% on room air. Afebrile. Weight today has come down 2 kg from yesterday and she has generated a negative fluid balance with her low dose IV Lasix and dobutamine. No current pallor or cyanosis. Normal oral moisture. Trachea midline. Neck veins are still visible, above the clavicle with her sitting. Basilar dullness appears to be less posteriorly. Good air entry over both lung moore with no current adventitious sounds. Heart sounds are unchanged. No longer has any sacral pitting edema and lower leg pitting edema is just above her ankles. ekg monitor tech: This has been showing sinus rhythm with occasional isolated PACs and PVCs. No complex or symptomatic arrhythmia. No significant bradyarrhythmia. LABORATORY DATA: Blood work today shows a stable hemoglobin of 11.9, normal white blood cell count and platelet count. Her electrolytes are normal with potassium up from 3.5 to 4.3 with her potassium replacement therapy yesterday. BUN remains stable at 31 with creatinine having improved to 1.08 from 1.26 yesterday, despite her negative fluid balance. Fasting glucose 76. Serum calcium was 8.9. Albumin remains low at 2.5. IMPRESSION/PLAN: 1. Heart failure (systolic and diastolic/acute on chronic): Is making good progress with her current parenteral antifailure therapy. Is tolerating dobutamine without significant arrhythmia. With this combination, her blood pressure has actually increased and renal function improved despite her negative fluid balance -- clearly a reflection of improved cardiac output. Today, I plan to try increasing her dose of Captopril to 6.25 mg twice a day. We are hoping to continue her parenteral dobutamine and Lasix, as long as she has signs of systemic edema. I suspect this will be no more than 24 to 48 hours at the outside. She will continue with cardiac rehabilitation and gradual ambulation. 2. Abnormal EKG/right bundle branch block: Continues to be free of symptomatic myocardial ischemia. Has not had any significant bradyarrhythmia despite her baseline conduction problems. Remains on protective low dose beta augustina, FABIEN inhibitor and aspirin therapy. 3. Dilated cardiomyopathy: As per assessment #1, presently on combination digoxin, carvedilol, captopril, and spironolactone orally. Our intent is to switch her IV Lasix ultimately to 20 mg by mouth daily. Dobutamine will be weaned off and discontinued after an additional 24 hours. 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 No symptoms of signs of endocarditis and her blood cultures remained negative after 72 hours. As discussed with the patient and her family, I suspect she will require an additional 24 to 48 hours prior to reaching her euvolemic state. She is responding well at this point. We will plan on obtaining a followup PA and left lateral chest x-ray and EKG Thursday. The [facility] group will be covering us for this weekend. I appreciate participating in your patient's care and would be pleased to continue to monitor her as an outpatient. MARCELA
[2016-11-07] MEDS: DOBUTamine HCL 250,000 MCG in APPROPRIATE DILUENT 1 EA IV SCH (15:44)
[2016-11-07 16:00] VITALS: BP 125/60
[2016-11-07 20:33] VITALS: BP 135/61
[2016-11-07] MEDS: CAPTOpril 6.25 MG PER 1/2 TABLET PO SCH (20:36)
[2016-11-07 23:59] VITALS: BP 99/42
[2016-11-08] MEDS: SLF 3 ML SYR IV SCH ×3 (05:13→21:59)
[2016-11-08] MEDS: HEPARIN SOD (PORCINE) 5000 UNITS/ML VIAL SC SCH ×3 (05:13→21:57)
[2016-11-08 05:15] VITALS: BP 117/56
[2016-11-08 05:45] LABS: MEAN CORPUSCULAR HEMOGLOBIN 31.3 pg (27.0-33.0); MEAN CORPUSCULAR HGB CONC 31.9 g/dl (32.0-36.5); MEAN CORPUSCULAR VOLUME 98.2 fl (80.0-96.0); RED CELL DISTRIBUTION WIDTH 13.7 % (11.5-14.5); WHITE BLOOD COUNT 6.4 K/mm3 (4.0-10.0)
[2016-11-08 06:08] LABS: ALBUMIN 2.5 GM/DL (3.2-5.2); ANION GAP 6 MEQ/L (8-16); BLOOD UREA NITROGEN 25 MG/DL (7-18); CALCIUM LEVEL 8.7 MG/DL (8.8-10.2); CARBON DIOXIDE LEVEL 33 MEQ/L (21-32); CHLORIDE LEVEL 101 MEQ/L (98-107); CREATININE FOR GFR 0.91 MG/DL (0.55-1.02); GLOMERULAR FILTRATION RATE > 60.0 (>32); GLUCOSE, FASTING 72 MG/DL (83-110); PHOSPHORUS LEVEL 2.4 MG/DL (2.5-4.9); SODIUM LEVEL 140 MEQ/L (136-145)
[2016-11-08 08:00] VITALS: BP 115/55
[2016-11-08] MEDS: DOCUSATE SODIUM 100 MG CAP PO SCH ×2 (08:50→21:00)
[2016-11-08] MEDS: FUROSEMIDE 20 MG/2 ML VIAL (J1940) IV SCH ×2 (08:50→17:06)
[2016-11-08] MEDS: CYANOCOBALAMIN 500 MCG TAB PO SCH (08:51)
[2016-11-08] MEDS: SPIRONOLACTONE 12.5MG PER 1/2 TABLET PO SCH ×2 (08:51→21:58)
[2016-11-08] MEDS: CAPTOpril 6.25 MG PER 1/2 TABLET PO SCH ×2 (08:51→21:58)
[2016-11-08] MEDS: CARVedilol 3.125 MG TAB PO SCH ×2 (08:51→21:59)
[2016-11-08] MEDS: VITAMIN D 1,000 INTERNATIONAL UNITS TABLET PO SCH ×2 (08:51→21:59)
[2016-11-08] MEDS: ASPIRIN 81 MG ENTERIC TAB PO SCH (08:51)
[2016-11-08] MEDS: NYSTATIN 100,000 UNITS/GM TOPICAL PWD 15 GM TOP SCH (08:52)
[2016-11-08] MEDS: MOM 30ML SUSPENSION UDC PO SCH (08:52)
[2016-11-08 12:00] VITALS: BP 113/58
--- NOTE | 2016-11-08 13:13 | IPN ---
DATE OF SERVICE: 11/08/2016 Mrs. Christina tells me that she is feeling "great." She says she feels so much better on all grounds but she cannot really specify how. She denies any dyspnea. She denies any chest pain. VITAL SIGNS: Blood pressure is 113/58, heart rate is in 70s to 90s, in sinus rhythm without significant ventricular ectopy. She is afebrile. Saturation 97% on room air. Her fluid balance yesterday was documented about 350 mL negative. Her weight is 32.4 kg, which is another kilogram less than yesterday. She is very frail. Her jugular venous pulse is still at least 506 cm above clavicle. Lungs are somewhat difficult to auscultate due to her prominent spice fumigator and overall cachexia, but I do not appreciate any crackles or wheezes and there are only minimally diminished sounds over bases. Heart examination reveals regular rhythm without gallop. Abdomen is soft, very cachectic. There is about 1+ edema about 2 or 3 inches above both ankles. Neurologically she is intact. She is very talkative and alert. LABORATORY: Basic metabolic panel is normal. Potassium is 4.0, BUN 25, creatinine 0.9 and glucose was 72. Complete blood count (CBC): Hemoglobin 12.1, hematocrit 38.1 and platelet count 222,000. ASSESSMENT AND PLAN: Mrs. Christina is an 80-year-old female who has dilated cardiomyopathy and she came with exacerbated congestive heart failure. It appears that she responded well to administration of dobutamine together with diuretics, digoxin and captopril. She has been successfully losing weight, her peripheral edema is subsiding and she feels better overall. She was almost crying when I told her that I do not believe that we can let her go home today as yet. But she calmed down some when I promised that unless something unexpected happens, she can be discharged tomorrow. In preparation for that, I will discontinue her dobutamine. Will continue her chronic digoxin, spironolactone and furosemide in current doses. I did not make any adjustments on her Coreg and captopril. Provided she remained stable, does not gain any weight and will feel equally well tomorrow, I think she can be discharged home on current medications. I would switch the IV furosemide to oral in approximately 40 mg once a day. She will need close followup. MTDD
--- NOTE | 2016-11-08 13:47 | IPNPDOC ---
Assessment/Plan Date Seen The patient was seen on 11/08/16. Problems Problems: (1) CHF (congestive heart failure) Status: Acute Problem Text: * pt has systolic CHF with EF of 25% * continue diuretics, pt will be weaned off of dobutamine today * will likely be able to go home in 24-48 hours (2) Troponin level elevated Status: Resolved Problem Text: * likely secondary to respiratory distress (3) COPD exacerbation Status: Acute Problem Text: * continue duonebs (4) HTN (hypertension) Status: Chronic Response to Treatment: Stable (5) Cachexia Status: Chronic Response to Treatment: Stable Plan / VTE VTE Prophylaxis Ordered?: Yes Subjective Review of Systems CC/HPI The patient is a 80-year-old female admitted with a reason for visit of Copd Exacerbation. Events since last encounter pt seen and examined doing well, Constitutional: Denies: Chills, Fever, Malaise, Night Sweats, Weakness Cardiovascular: Denies: Chest Pain, Lt Headedness, Orthopnea, Palpitations, Paroxysmal Noc. Dyspnea Gastrointestinal: Denies: Abdominal Pain, Diarrhea, Nausea, Vomiting Objective Physical Examination General Exam: Positive: No Acute Distress Eye Exam: Positive: PERRLA Chest Exam: Positive: Clear to auscultation, Normal air movement Heart Exam: Positive: Rate Normal Abdomen Exam: Positive: Normal bowel sounds, Soft, Negative: Hepatospenomegaly, Tenderness Extremity Exam: Positive: Edema Vital Signs/I&O Vital Signs Date Time Temp Pulse Resp B/P Pulse Ox O2 Delivery O2 Flow Rate FiO2 11/08/16 12:00 96.6 85 20 113/58 97 Room Air I&O- Last 24 Hours up to 6 AM 11/08/16 06:00 Intake Total 640 ml Output Total 1100 ml Balance -460 ml Laboratory Data Labs 24H Laboratory Tests 2 11/08/16 04:55: Albumin 2.5L, Blood Urea Nitrogen 25H, Creatinine 0.91, Sodium Level 140, Potassium Level 4.0, Chloride Level 101, Carbon Dioxide Level 33H, Anion Gap 6L , Calcium Level 8.7L, Glomerular Filtration Rate > 60.0, Phosphorus Level 2.4L CBC/BMP Laboratory Tests 11/08/16 04:55 Anion Gap 6 L, Red Blood Count 3.88 L, Mean Corpuscular Volume 98.2 H, Mean Corpuscular Hemoglobin 31.3, Mean Corpuscular Hemoglobin Concent 31.9 L, Red Cell Distribution Width 13.7 Microbiology Microbiology 11/04/16 Blood Culture - Preliminary, Resulted No Growth after 72 hours. All specime... 11/04/16 Blood Culture - Preliminary, Resulted No Growth after 72 hours. All specime... CATHERINE STEELE DO Nov 08, 2016 13:47
[2016-11-08] MEDS: IPRATROPIUM 0.5MG/ALBUTEROL 2.5MG INH SOL UD 3ML (DUONEB)(J7620) NEB SCH ×4 (15:21→23:44)
[2016-11-08 16:00] VITALS: BP 114/50
[2016-11-08 21:32] VITALS: BP 115/56
[2016-11-08 23:53] VITALS: BP 107/49
[2016-11-09 04:44] VITALS: BP 111/61
[2016-11-09 05:54] LABS: MEAN CORPUSCULAR VOLUME 100.1 fl (80.0-96.0); RED CELL DISTRIBUTION WIDTH 14.4 % (11.5-14.5); WHITE BLOOD COUNT 6.2 K/mm3 (4.0-10.0)
[2016-11-09 05:56] LABS: ALBUMIN 2.5 GM/DL (3.2-5.2); ANION GAP 7 MEQ/L (8-16); BLOOD UREA NITROGEN 26 MG/DL (7-18); CALCIUM LEVEL 8.4 MG/DL (8.8-10.2); CARBON DIOXIDE LEVEL 32 MEQ/L (21-32); CHLORIDE LEVEL 99 MEQ/L (98-107); CREATININE FOR GFR 0.88 MG/DL (0.55-1.02); GLOMERULAR FILTRATION RATE > 60.0 (>32); GLUCOSE, FASTING 81 MG/DL (83-110); POTASSIUM SERUM 3.5 MEQ/L (3.5-5.1); SODIUM LEVEL 138 MEQ/L (136-145)
[2016-11-09 06:16] LABS: PHOSPHORUS LEVEL 3.1 MG/DL (2.5-4.9)
[2016-11-09] MEDS: HEPARIN SOD (PORCINE) 5000 UNITS/ML VIAL SC SCH (06:38)
[2016-11-09] MEDS: SLF 3 ML SYR IV SCH (06:38)
[2016-11-09] MEDS: IPRATROPIUM 0.5MG/ALBUTEROL 2.5MG INH SOL UD 3ML (DUONEB)(J7620) NEB SCH (07:47)
[2016-11-09 08:00] VITALS: BP 104/58
[2016-11-09] MEDS: MOM 30ML SUSPENSION UDC PO SCH (08:20)
[2016-11-09] MEDS: DOCUSATE SODIUM 100 MG CAP PO SCH (08:20)
[2016-11-09 08:21] VITALS: BP 112/74
[2016-11-09] MEDS: ASPIRIN 81 MG ENTERIC TAB PO SCH (08:21)
[2016-11-09] MEDS: CARVedilol 3.125 MG TAB PO SCH (08:21)
[2016-11-09] MEDS: VITAMIN D 1,000 INTERNATIONAL UNITS TABLET PO SCH (08:21)
[2016-11-09] MEDS: FUROSEMIDE 20 MG/2 ML VIAL (J1940) IV SCH (08:21)
[2016-11-09] MEDS: SPIRONOLACTONE 12.5MG PER 1/2 TABLET PO SCH (08:22)
[2016-11-09] MEDS: CAPTOpril 6.25 MG PER 1/2 TABLET PO SCH (08:22)
[2016-11-09] MEDS: CYANOCOBALAMIN 500 MCG TAB PO SCH (08:22)
[2016-11-09] MEDS: NYSTATIN 100,000 UNITS/GM TOPICAL PWD 15 GM TOP SCH (08:23)
--- NOTE | 2016-11-09 08:47 | REP ---
Chest x-ray: Two views. History: Pleural effusions. Followup. Comparison study November 04, 2016. Findings: Upright AP and lateral views demonstrate marked hyperinflation with increase in the AP diameter of the chest and flattening of the diaphragms. There is blunting of the diaphragmatic pleural angles bilaterally consistent with small bilateral pleural effusions. Moderate cardiomegaly is observed. Pulmonary vasculature is not increased. No infiltrate is seen. Impression: Small bilateral pleural effusions probably improved from the 11/04/2016 study. Advanced COPD, hyperinflation, cardiomegaly. Signed by Jaylon Raymundo MD 11/09/2016 10:22 A
[2016-11-09] MEDS ORDERED: CAPT62TA PO (10:08)
[2016-11-09] MEDS ORDERED: DIGO0.12 PO (10:08)
[2016-11-09] MEDS ORDERED: LASI20TA PO (10:08)
--- NOTE | 2016-11-09 12:51 | IPN ---
DATE OF SERVICE: 11/09/2016 Mrs. Christina tells me that she is feeling "great." She would really love to go home. She denies any dyspnea, and she denies any chest discomfort. Vital signs: Blood pressure 112/74, heart rate is in the 80s. She is afebrile. Saturation 95% on room air. Her fluid balance yesterday was about 0.5 liter negative. She is alert and oriented and appropriate. Her jugular venous pressure (JVP) is about1 cm above clavicle. Lungs are difficult to auscultate due to her very cachectic appearance and prominent ribs, but I do appreciate no evidence for pleural effusion. There is no crackles and no wheezing. Heart examination: Regular rhythm. No gallop or rub. Abdomen is soft, nontender. Peripheral edema has resolved. LABORATORY-VANEGAS: CBC: Hemoglobin 11.7, hematocrit 36, platelet count 206,000. Basic metabolic panel: Potassium 3.2, BUN 26, creatinine 0.9, and glucose 81. ASSESSMENT AND PLAN: Mrs. Christina is an 80-year-old female who has nonischemic cardiomyopathy, came with exacerbated congestive heart failure. She is noted to be much improved. Even though there is still a chest x-ray evidence for some small residual pleural effusions, I believe she can go home. I would keep her on current medications with the exception of oral Lasix 40 mg daily. She follows normally with Dr. Toledo and Dr. Herrera. [facility]
[2016-11-10] MEDS ORDERED: DIGOXIN 0.125 MG TAB PO SCH (09:00)
--- NOTE | 2016-11-11 08:51 | ECGEPIP ---
Stationary ECG Study [facility] Test Date: 2016-11-09 Pat Name: STEPHENIE FLORES Department: Room: [place] [address] Gender: F Game Protector: JENNIFER : [id number] Requested By: Misael Toledo Order Number: [id number] Reading MD: Ramos Ram Measurements Intervals [place] Rate: 80 P: 83 MS: 183 QRS: 40 QRSD: 128 T: -1 QT: 376 QTc: 435 Interpretive Statements SINUS RHYTHM WITH OCCASIONAL VENTRICULAR PREMATURE COMPLEXES LEFT ATRIAL ENLARGEMENT RIGHT BUNDLE BRANCH BLOCK LEFT VENTRICULAR HYPERTROPHY AND ST-T CHANGE No significant change when compared to prior tracing of 11-04-2016 Electronically Signed On 11-11-2016 8:51:21 EST by Ramos Ram
--- NOTE | 2016-12-01 13:29 | DSES ---
DATE OF ADMISSION: 11/05/2016 DATE OF DISCHARGE: 11/09/2016 PRIMARY CARE PROVIDER: Dr. Reyes. CALL CENTER ANALYST: Dr. Toledo. REASON FOR ADMISSION: Increased shortness of breath, nonproductive cough for the last three days. FINAL DIAGNOSES: 1. Dilated cardiomyopathy. 2. Exacerbated congestive heart failure. 3. Elevated troponin. 4. Chronic obstructive pulmonary disease exacerbation. 5. Hypertension. 6. Cachexia. HISTORY OF PRESENT ILLNESS: The patient is an 80-year-old female who presented to the emergency room complaining of shortness of breath and nonproductive cough for the past 2-3 days. She was admitted under the hospitalist service. HOSPITAL COURSE: Dr. Toledo who was her gaming host was consulted for congestive heart failure exacerbation and cardiomyopathy as well as elevated troponin. The patient was started on a low dose dobutamine infusion as well as low dose IV Lasix to diurese the patient without dropping her blood pressure. He was monitoring her carefully, monitoring her ins and outs and daily weights as well as her blood pressure. The patient remained in the hospital for 2-3 days while being diuresed. Once she reached her dry weight and her baseline cardiac function and her respiratory distress had resolved, she was discharged home. DISCHARGE INSTRUCTIONS: She is to follow up with Dr. Reyes 2-5 days. She is to follow up with Dr. Toledo in 2-5 days. Diet: Low sodium, fluid restricted diet. Activities as tolerated. Discharge medications include captopril 6.25 mg daily every 12 hours, digoxin 0.125 mg by mouth Thursday, Thursday and Thursday, Lasix 20 mg by mouth daily, Tylenol as needed for pain or fever, Ellipta 100 mcg inhaled daily, aspirin 81 mg by mouth daily, carvedilol 3.125 mg by mouth twice a day, vitamin D 1000 units by mouth twice a day, Colace 200 mg by mouth twice a day, Ferate 54 mg by mouth daily, spironolactone 12.5 mg by mouth daily. DISCHARGE CONDITION: Stable.
== END 2016-11-09 13:09 | disposition home or self-care (01) | DRG 190 ==
LOC: M ED 13:27 → M ED INP 17:44 → M PCU 21:03 → OBSVTOIN 11-05 10:50 → M PCU 11-07 21:46
PROVIDERS: ADMIT Hospitalist; ATTEND Internal Medicine
DX: J44.1 Chronic obstructive pulmonary disease with (acute) exacerbation (principal); I50.43 Acute on chronic combined systolic (congestive) and diastolic (congestive) heart failure; R64 Cachexia; I42.0 Dilated cardiomyopathy; Z68.1 Body mass index [BMI] 19.9 or less, adult; E61.1 Iron deficiency; E55.9 Vitamin D deficiency, unspecified; I11.0 Hypertensive heart disease with heart failure; I34.0 Nonrheumatic mitral (valve) insufficiency; I35.1 Nonrheumatic aortic (valve) insufficiency; I45.10 Unspecified right bundle-branch block; M81.0 Age-related osteoporosis without current pathological fracture; M19.90 Unspecified osteoarthritis, unspecified site; Z66 Do not resuscitate; M40.204 Unspecified kyphosis, thoracic region; M62.50 Muscle wasting and atrophy, not elsewhere classified, unspecified site; Z77.22 Contact with and (suspected) exposure to environmental tobacco smoke (acute) (chronic); Z79.82 Long term (current) use of aspirin; Z79.899 Other long term (current) drug therapy

== ENCOUNTER 2017-02-18 15:16 | Inpatient (IN) | payer MEDICARE ==
[~2017-02-18] VITALS: Ht 162.6 cm; Wt 33.6 kg
[~2017-02-18 15:16] MED LIST: ARNU1INH INH; ASPI1TAB PO; CAPT62TA PO; CARV3.12 PO; CHLO125TA PO; COLA100C3 PO; DIGO0.12 PO; FERA1TAB PO; IBAN150T5 PO; LASI20TA PO; SPIR25TA2 PO; TYLE650T35 PO; VITA10002 PO; VITA100066 PO
[2017-02-18] MEDS ORDERED: FURO20TA2 PO (15:44)
[2017-02-18] MEDS ORDERED: DIGO0.12 PO (15:44)
[2017-02-18] MEDS ORDERED: CAPT62TA PO (15:44)
[2017-02-18] MEDS ORDERED: MAPA650T PO (15:44)
[2017-02-18] MEDS ORDERED: FERA1TAB PO (15:44)
[2017-02-18] MEDS ORDERED: SPIR25TA2 PO (15:44)
[2017-02-18] MEDS ORDERED: COLA100C3 PO (15:44)
[2017-02-18] MEDS ORDERED: VITA100072 PO (15:44)
[2017-02-18] MEDS ORDERED: CARV3.12 PO (15:44)
[2017-02-18] MEDS ORDERED: ASPI81TA7 PO (15:44)
[2017-02-18] MEDS ORDERED: RANI150T PO (15:44)
[2017-02-18] MEDS ORDERED: MULT1TAB18 PO (15:44)
[2017-02-18] MEDS ORDERED: VITA200038 PO (15:44)
[2017-02-18 15:57] LABS: BASO % 0.2 % (0.0-1.0); EOS % 0.7 % (0.0-3.0); LARGE UNSTAINED CELL # 0.1 K/mm3 (0.0-0.4); LARGE UNSTAINED CELL % 1.7 % (0.0-4.0); LYMPH # 0.8 K/mm3 (1.5-4.5); MEAN CORPUSCULAR HGB CONC 31.5 g/dl (32.0-36.5); MEAN CORPUSCULAR VOLUME 101.5 fl (80.0-96.0); MONO # 0.4 K/mm3 (0.0-0.8); MONO % 7.1 % (0.0-5.0); NEUTROPHILS # 4.7 K/mm3 (1.8-7.7); NEUTROPHILS % 78.4 % (36.0-66.0); PLATELET COUNT, AUTOMATED 242 k/mm3 (150-450); RED CELL DISTRIBUTION WIDTH 15.4 % (11.5-14.5)
--- NOTE | 2017-02-18 16:12 | REP ---
PORTABLE CHEST: HISTORY: Chest pain. COMPARISON: 11/09/2016 The technique utilized in obtaining the radiograph has magnified the cardiac silhouette and accentuated the interstitial markings. Since the last examination a patchy opacity has developed in the lung bases, right greater than left. Cardiomediastinal silhouette is unchanged. Osseous structures are unchanged. There is cardiomegaly, status quo. IMPRESSION: Bilateral basilar opacities. Pneumonia/atelectasis/pleural effusions. Correlate clinically. Signed by Juan Francisco Joy DO 02/18/2017 04:31 P
[2017-02-18 16:28] LABS: ALBUMIN 2.6 GM/DL (3.2-5.2); ALBUMIN/GLOBULIN RATIO 0.96 (1.00-1.93); BILIRUBIN,DIRECT 0.1 MG/DL (0.0-0.2); BILIRUBIN,TOTAL 0.3 MG/DL (0.2-1.0); CALCIUM LEVEL 8.7 MG/DL (8.8-10.2); CREATININE FOR GFR 1.44 MG/DL (0.55-1.02); FREE T4 0.69 NG/DL (0.76-1.46); POTASSIUM SERUM 3.9 MEQ/L (3.5-5.1); TOTAL PROTEIN 5.3 GM/DL (6.4-8.2)
--- NOTE | 2017-02-18 17:16 | REP ---
CT study of the chest without contrast: History: Shortness of breath. Comparison chest x-ray is from earlier on this date. Comparison chest CT study is from September 2011. CT findings: Thoracic kyphosis is markedly exaggerated in this patient distorting axial CT anatomy. There are moderate bilateral pleural effusions, right greater than left. These appear somewhat loculated particularly on the left. Moderate cardiomegaly is observed. There are compressive atelectatic changes in the lower lobes. No definite pulmonary mass lesion or focal infiltrate is seen. No endobronchial lesion is seen. There is diffuse osteopenia. No bony destructive lesion is seen focally. Cardiomegaly is observed. There are surgical clips in the upper abdomen on the left. There is no other significant abnormality. Impression: Bilateral pleural effusions; loculated on the left and moderate in size on the right. Markedly exaggerated thoracic kyphosis. Cardiomegaly and vascular calcification. No definite mass lesion. Signed by Jaylon Raymundo MD 02/19/2017 12:37 P
[2017-02-18 17:29] LABS: DIGOXIN LEVEL 0.1 NG/ML (0.5-2.0)
[2017-02-18] MEDS ORDERED: ACETAMINOPHEN 650MG ER TAB (TYLENOL ARTHRITIS) PO PRN (18:30)
[2017-02-18] MEDS ORDERED: FUROSEMIDE 20 MG/2 ML VIAL (J1940) IV ONE (19:00)
--- NOTE | 2017-02-18 19:27 | HPE ---
DATE OF ADMISSION: 02/18/2017 PRIMARY CARE PROVIDER: Dr. Reyes SLABBER: Dr. Toledo CHIEF COMPLAINT: Shortness of breath. HISTORY OF PRESENT ILLNESS: The patient is an 81-year-old female with known advanced severe systolic congestive heart failure who was recently admitted earlier this year with decompensated heart failure. At that time, she was admitted to the intensive care unit with a cardiology consultation where she was diuresed with IV Lasix while on IV dobutamine. Her volume status gradually improved to the point where she was able to be discharged home. During that stay , per review of the records, it was felt that the patient was appropriate for comfort measures but the family was not prepared to make that decision at that time. The patient, herself, has since gone home and progressively had worsening shortness of breath with dyspnea on exertion and weakness. She has also reported decreased oral intake and decreased urine output as well as lower extremity edema. She finds that her symptoms are worse when she lays flat, positive for orthopnea but negative for paroxysmal nocturnal dyspnea (PND). At the present time, the patient feels much better sitting up on two liters of oxygen. She has not received any diuresis in the emergency room. PAST MEDICAL HISTORY: 1. Nonischemic cardiomyopathy felt to be related to alcohol versus viral infection, known for greater than a decade. Most recent ejection fraction was approximately 25%. 2. Old right bundle branch block. 3. Vitamin D deficiency. 4. Iron deficiency. 5. Chronic obstructive pulmonary disease (COPD). 6. Hypertension. 7. Cachexia. 8. Protein-calorie malnutrition. 9. Mitral and aortic valve "leaky." ALLERGIES: None. PAST SURGICAL HISTORY: 1. Left hip arthroplasty. 2. Partial gastrectomy. SOCIAL HISTORY: No alcohol, tobacco or illicit drug use. She lives in her apartment with one of her four daughters. REVIEW OF SYSTEMS: Negative other than in the history of present illness (HPI). FAMILY HISTORY: Noncontributory. HOME MEDICATIONS: - captopril 6.25 mg by mouth twice a day - Lasix 20 mg daily - fenofibrate 54 mg daily - Tylenol 650 mg three times a day as needed pain - aspirin 81 mg daily - Coreg 3.125 mg by mouth twice a day - vitamin D3 2000 units daily - B12 1000 mcg daily - digoxin 0.125 mg three times a week - Colace 200 mg by mouth twice a day - ranitidine 150 mg by mouth at bedtime - aldactone 12.5 mg daily PHYSICAL EXAMINATION: VITAL SIGNS: Temperature 97.6, respiratory rate 18, pulse 78, blood pressure 113/58, oxygen saturation 99% on room air. GENERAL: She is a frail, cachectic, elderly, female sitting up in a stretcher. She appears comfortable at the present time. HEENT: She has bitemporal wasting. Moist mucous membranes. No elevation in her central venous pressure. CARDIOVASCULAR EXAMINATION: S1, S2, regular. RESPIRATORY EXAMINATION: Diminished breath sounds at the bases. She has scalene wasting. ABDOMINAL EXAMINATION: Bowel sounds present. The abdomen is soft. EXTREMITIES: Once again, she appears wasted. Venous prominence. She has 2+ down the extremities bilaterally. LABORATORY STUDIES: Digoxin level is 0.1. WBC 6.0, hemoglobin 13, MCV 101.5, platelet count 242. Chemistry panel: Sodium 147, potassium 3.9, chloride 108, bicarbonate 31, BUN 41 , creatinine 1.4, baseline approximately 1.0, and one set of cardiac enzymes negative. A BNP is 3740. TSH is significantly elevated at 104. Her free T4 is low at 0.69. IMAGING STUDIES: The patient did have a CT scan of her chest which revealed bilateral pleural effusions, loculated on the left and moderate sized on the right, markedly exaggerated thoracic kyphosis. Chest x-ray reveals bilateral basilar opacities. ASSESSMENT AND PLAN: This is a frail, elderly, cachectic female with decompensated systolic congestive heart failure. 1. Decompensated systolic congestive heart failure. Based on her previous admissions, it appears to be relatively end-stage. I did have a very servando and very lengthy discussion with the patient and two of her daughters who were at bedside. Again, based on her recent hospitalization and treatments and review of Dr. Toledo's notes, I suspect that the patient is within the last six months of her life with end-stage congestive heart failure, hospice appropriate. I did have servando discussion stating to the patient and her daughters that I think that the patient has limited time left to live with best medical therapies. I did lay out 3 different options broadly, full code, dnr/dni, and comfort measures only answering all questions to their satisfaction and informing them it was up to the patient to make an informed choice and I was theire to help as much as possible. The patient's daughters were quite angry with this assessment and stated that doctors are supposed to help patients live and the family is not interested in hospice, or dnr dni. The patient did express interest in hospice but after her daughters began to yell at her, she quickly changed her mind and said that she would do whatever her daughters wanted to. The daughters did also state that one of them lives with the patient and the others are unable to visit or help on a regular basis with care of the mother. For the time being, the patient is being admitted to the progressive care unit. I will give her one dose of IV Lasix 20 mg. I have spoken with Dr. Herrera who has agreed to see the patient this evening in consultation for her decompensated congestive heart failure. For the time being, I will hold her home oral Lasix and also hold her home captopril but we will continue with Coreg and aldactone with holding parameters. She is also on aspirin and digoxin three times a week. I do not see the benefit in checking an echocardiogram once again as her clinical status does not appear to have changed significantly than her last presentation. We will trend her cardiac enzymes, place her on a salt restricted diet, and monitor daily weights, intake and output. 2. Hypothyroidism. Quite significant, diligently checked by the emergency room staff. The patient will started on levothyroxine hormone replacement therapy. She does not appear to be in myxedema coma and I do not think that she needs steroids at this time. Continue to monitor her clinical status closely. She will likely require further followup regarding this with a recheck in several weeks. 3. Macrocytic anemia. The patient has a history of this. She is currently on iron supplementation and B12 supplementation. She does not appear to be significantly anemic at this time. Her macrocytosis could also be related to her significant thyroid disease. 4. Acute kidney injury. Likely secondary to decompensated heart failure. Once again, I will give her a trial of diuresis and wait for the recommendation from Dr. Herrera. Should her renal function fail to improve with diuresis or it worsens significantly, we could consider a nephrology consultation. 5. Hypernatremia. Mild at this time. Monitor closely while undergoing diuresis. 6. Constipation. Also likely related to her thyroid disease. Continue with stool softeners. 7. Deep vein thrombosis (DVT) prophylaxis. The patient will be on heparin. 8. Severe prot. calorie malnutrition DISPOSITION: The patient is admitted to the progressive care unit to Dr. Gates's service who will continue following the patient. Her prognosis appears to be quite poor in the snf. Family is not open to DO NOT RESUSCITATE(DNR)/DO NOT INTUBATE (DNI) or comfort measures at this time and wish to proceed with full care regardless of prognosis. Greater than one hour spent at bedside answering all questions to the satisfaction of the patient and her two daughters who were present. MARCELA
[2017-02-18] MEDS: CARVedilol 3.125 MG TAB PO SCH (21:00)
[2017-02-18] MEDS ORDERED: LEVOTHYROXINE 0.025 MG TAB (25 MCG) PO ONE (21:00)
[2017-02-18 21:25] VITALS: BP 94/52
[2017-02-18] MEDS ORDERED: SLF 3 ML SYR IV PRN (21:45)
--- NOTE | 2017-02-18 22:39 | CR ---
DATE OF CONSULTATION: 02/18/2017 REFERRING PHYSICIAN: Len Hua MD REASON FOR CONSULTATION: Acute on chronic systolic and diastolic heart failure. 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 She also has mitral valve prolapse with chronic severe mitral regurgitation, right bundle branch block, abnormal ECG, and systemic hypertension. She has been followed at our office and has refused any further cardiac testing and refuses any cardiac interventions of any kind. At the moment she is FULL CODE status. I had an extensive discussion with the patient regarding do not resuscitate, and at this time she wishes to be FULL CODE. Patient presents with a 1 week history of progressive increasing dyspnea with low levels of activity to the point of dyspnea at rest. No orthopnea or paroxysmal nocturnal dyspnea (PND). In the past week she has noticed increased swelling of her left leg. No cough or sputum. No chest pain or chest discomfort. No palpitations. No presyncope or syncope. No intermittent claudication. No fever or chills. An echocardiogram Doppler from 06/30/2004, reported left ventricular dilatation with severe global left ventricular (LV) hypokinesis, LV ejection fraction (EF) of 20%, mitral annular calcification and moderate mitral regurgitation. The last available echocardiogram Doppler that I can find was from 05/28/2010, which at that time reported mild global hypokinesis with mild reduction of LV systolic function with LVEF 50-55%. Also noted was presence of myxomatous mitral leaflets with mild prolapse of both the anterior and posterior mitral leaflets and severe mitral regurgitation. Impaired LV diastolic relaxation. Very mild tricuspid regurgitation. No tricuspid valve prolapse. Mild left atrial dilatation. Mild aortic valve sclerosis with mild aortic regurgitation. A dipyridamole stress SPECT myocardial perfusion imaging study from 03/21/2005, reported no coronary artery disease. No previous cardiac catheterizations. ALLERGIES: No known adverse drug reactions. MEDICATIONS: Prior to admission: - acetaminophen 650 mg by mouth three times a day as needed - aspirin 81 mg daily - captopril 6.25 mg twice a day - carvedilol 3.125 mg twice a day - vitamin D 2000 units daily - vitamin B12 1000 mcg daily - digoxin 0.125 mg three times a week on Mondays, Wednesdays, and Fridays - Colace 200 mg twice a day - fenofibrate 54 mg by mouth daily - furosemide 20 mg by mouth daily - ranitidine 150 mg nightly - spironolactone 12.5 mg daily The patient's past medications in hospital consisted of one dose of IV furosemide 20 mg IV earlier this evening, digoxin 0.125 mg three days a week Mondays, Wednesdays, and Thursday, vitamin D 2000 units by mouth daily, vitamin B12 1000 mcg by mouth daily, spironolactone 12.5 mg daily, heparin 5000 units subcutaneous every 12 hours, carvedilol 3.125 mg twice a day, Colace 200 mg twice a day, famotidine 20 mg nightly, acetaminophen 650 mg three times a day as needed. OTHER PAST MEDICAL AND SURGICAL HISTORY: Iron deficiency anemia, hypothyroidism, hyperlipidemia, osteoporosis, arthritis, vitamin D deficiency, cachexia, repair of left leg fracture 1997, total hip replacement , abdominal surgery following trauma 1968, ulcer surgery 1968, cardiac history as noted above. Her medical record also lists chronic obstructive pulmonary disease (COPD) although she has never been a smoker. SOCIAL HISTORY: . Lives in an apartment with one of her four daughters. Nonsmoker. No alcohol. FAMILY HISTORY: Brother had a heart attack. Mother of cancer. Father of pneumonia. One daughter had a stroke. REVIEW OF SYSTEMS: As per history of present illness (HPI) above. No anxiety, panic attacks or depression. Wears glasses for reading. Decreased hearing. Nocturia once a night. Anemia. Hypothyroidism. All other ten point review of systems otherwise negative. PHYSICAL EXAMINATION: Elderly, severely cachectic woman who is not in any respiratory or psychologic distress. Height 64 inches, weight 28.123 kg, body mass index (BMI) 10.6. Alert and oriented. Appears mildly pale. Pulse 81 (sinus), blood pressure 101/55, oxygen saturation 99% on oxygen 2 liters per minute by nasal cannula, temperature 97.6, respiratory rate 18. No conjunctival pallor, sclerae icterus or xanthomas. Edentulous. Oral mucosa was moist and without cyanosis. Trachea midline. No palpable thyroid. Jugular venous pulsations were at 10 cm with patient sitting up at 45 degrees. Severe kyphosis. [place] chest deformity. Dullness to percussion over the lower one-third of the lung moore bilaterally. No crackles. No wheezes. Markedly diminished breath sounds at both lung bases. Reduced respiratory expansion. No palpable apex beat. First heart sound normal. Second heart sound widely split. Grade 2 pansystolic murmur at the apex. No diastolic murmurs. Carotids are normal in volume and contour without bruits. Femoral pulses normal. Pedal pulses normal. Abdominal aorta 2 cm. No abdominal bruits. 2 mm of pitting edema at mid tibial level bilaterally. No varicose veins. Abdomen was soft, nontender, with normal bowel sounds. No hepatosplenomegaly or organomegaly. Liver span 10 cm right midclavicular line. Stool for occult blood not presently indicated. Diffuse muscle wasting. No clubbing of the nail beds, cyanosis, or splinter hemorrhages. Laboratory work 02/18/2017, showed WBC 6.0, hemoglobin 13.0, platelets 242, sodium 147, potassium 3.9, chloride 108, CO2 31, BUN 41, creatinine 1.44, estimated GFR 37.0, glucose 96, calcium 8.7, total bilirubin normal, direct bilirubin normal, AST normal, ALT normal, alkaline phosphatase normal, CPK normal, CPK-MB normal, troponin I is 0.0.6, BNP 3740, total protein low at 5.3, albumin low at 2.6, TSH 104, free T4 low at 0.69. CT of the chest without contrast 02/18/2017, reported bilateral pleural effusions of moderate size, right greater than left. Pleural effusion was loculated on the left. Marked thoracic kyphosis. Cardiomegaly. Vascular calcification. Compression atelectatic changes in the lower lobes. Diffuse osteopenia. Surgical clips in the upper abdomen on the left. I have independently visualized the patient's portable anteroposterior (AP) sitting chest xray acquired 02/18/2017 at 3:56 p.m. Cardiomegaly despite the portable technique. Moderate sized right pleural effusion and small to moderate sized left pleural effusion. Right pleural effusion greater than left pleural effusion. Distortion of the thoracic cage and osteopenia. Mild pulmonary vascular redistribution. No interstitial or alveolar edema. Electrocardiogram 02/18/2017, shows sinus rhythm, left atrial enlargement, right bundle branch block with marked right axis deviation, left posterior fascicular block, right ventricle hypertrophy, secondary and nonspecific ST-T abnormalities. Abnormal ECG. ASSESSMENT AND RECOMMENDATIONS: 1. Nonischemic dilated cardiomyopathy. Patient currently has acute on chronic systolic and diastolic heart failure. She has not had an echocardiogram assessment for a very long time because she has refused cardiac testing. Further aggravating this patient's situation with heart failure includes moderate renal dysfunction at the present time, untreated severe hypothyroidism, cachectic state with low albumin and total protein, and some degree of pulmonary hypertension. At this time I recommend medical therapy only. Since she is not hypotensive, I would not add inotropic IV agents such as dobutamine at this time. In my opinion, she is not a candidate for mitral valve repair or any other form of cardiac surgery. I had an extensive discussion with the patient and two of her daughters who were present at the bedside about do not resuscitate status. After much discussion, the patient decided that she still wishes to be FULL CODE even though it was explained to her that adverse consequences of cardiopulmonary resuscitation could include brain damage, rib fractures, sternal fracture, prolonged ventilator support with an endotracheal tube. At this point I recommend continuation with IV furosemide. Agree with introduction of thyroid replacement. Agree with continuation of digoxin, spironolactone, carvedilol at the current dosages. I will order an echocardiogram Doppler. 2. Acute on chronic systolic and diastolic heart failure. As per dilated cardiomyopathy category above. 3. Mitral valve prolapse with chronic severe mitral regurgitation. Recommend a followup echocardiogram Doppler which I have ordered. I really do not think this patient is a candidate for cardiac surgery or for a mitral valve clip. I will restart captopril, which the patient was on prior to admission. This will also be useful in the management of her systemic hypertension. 4. Systemic hypertension. Blood pressure presently controlled. Management of blood pressure medications as described above under the dilated cardiomyopathy and mitral valve prolapse categories. Will follow with you. 5. Right bundle branch block. This is chronic. Associated left posterior fascicular block. No presyncope or syncope. Stable. 6. Abnormal ECG. ECG as described. Stable. Thank you kindly for asking me to participate in the cardiac care of Flor Christina.
[2017-02-18 23:16] VITALS: BP 103/59
[2017-02-18] MEDS: HEPARIN SOD (PORCINE) 5000 UNITS/ML VIAL SC SCH (23:22)
[2017-02-18] MEDS: SLF 3 ML SYR IV SCH (23:23)
[2017-02-18] MEDS: FUROSEMIDE 40 MG/4 ML VIAL (J1940) IV SCH (23:23)
[2017-02-18] MEDS: DOCUSATE SODIUM 100 MG CAP PO SCH (23:23)
[2017-02-18] MEDS: FAMOTIDINE 20 MG TAB PO SCH (23:23)
[2017-02-19 03:22] VITALS: BP 102/50
[2017-02-19 05:08] LABS: MEAN CORPUSCULAR HEMOGLOBIN 32.4 pg (27.0-33.0); MEAN CORPUSCULAR HGB CONC 31.7 g/dl (32.0-36.5); MEAN CORPUSCULAR VOLUME 102.3 fl (80.0-96.0); RED CELL DISTRIBUTION WIDTH 15.3 % (11.5-14.5); WHITE BLOOD COUNT 5.8 K/mm3 (4.0-10.0)
[2017-02-19 05:33] LABS: CALCIUM LEVEL 8.4 MG/DL (8.8-10.2); CREATININE FOR GFR 1.27 MG/DL (0.55-1.02); GLOMERULAR FILTRATION RATE 42.8 (>32); POTASSIUM SERUM 3.7 MEQ/L (3.5-5.1)
[2017-02-19] MEDS: FUROSEMIDE 40 MG/4 ML VIAL (J1940) IV SCH ×3 (05:54→21:35)
[2017-02-19] MEDS: LEVOTHYROXINE 0.05 MG TAB (50 MCG) PO SCH (05:54)
[2017-02-19] MEDS: SLF 3 ML SYR IV SCH ×3 (05:55→21:35)
[2017-02-19 07:30] VITALS: BP 106/54
--- NOTE | 2017-02-19 08:39 | ECGEPIP ---
Stationary ECG Study [facility] - ED Test Date: 2017-02-18 Pat Name: STEPHENIE FLORES Department: Room: - Gender: F Animal Skinner: audra : 1935 Requested By: Lenka Garrison Order Number: [id number] Reading MD: Lenka Garrison Measurements Intervals [place] Rate: 81 P: 98 SC: 166 QRS: 102 QRSD: 139 T: -23 QT: 402 QTc: 467 Interpretive Statements SINUS RHYTHM LEFT ATRIAL ENLARGEMENT MARKED RIGHT AXIS DEVIATION RIGHT BUNDLE BRANCH BLOCK SIMILAR 11/09/16 Electronically Signed On 02-19-2017 8:39:31 EDT by Lenka Garrison
[2017-02-19] MEDS: SPIRONOLACTONE 12.5MG PER 1/2 TABLET PO SCH (08:55)
[2017-02-19] MEDS: CAPTOpril 6.25 MG PER 1/2 TABLET PO SCH ×2 (08:56→21:00)
[2017-02-19] MEDS: CARVedilol 3.125 MG TAB PO SCH ×2 (08:57→21:00)
[2017-02-19] MEDS: DOCUSATE SODIUM 100 MG CAP PO SCH ×2 (08:58→21:35)
[2017-02-19] MEDS: VITAMIN D 1,000 INTERNATIONAL UNITS TABLET PO SCH (08:58)
[2017-02-19] MEDS: CYANOCOBALAMIN 500 MCG TAB PO SCH (08:58)
[2017-02-19] MEDS ORDERED: ASPIRIN 81 MG ENTERIC TAB PO SCH (09:00)
[2017-02-19] MEDS: HEPARIN SOD (PORCINE) 5000 UNITS/ML VIAL SC SCH ×2 (10:35→21:34)
[2017-02-19 12:00] VITALS: BP 116/58
--- NOTE | 2017-02-19 12:56 | IPN ---
DATE: 02/19/2017 Patient seen and examined at the bedside. Chart has been reviewed. This morning, patient is awake, alert, oriented to person only. She appears demented. Has no complaint, chest pain, pressure, tightness. Family at the bedside, two daughters. They said she has increase in respiratory distress at home, having had to take deep breaths and unable to ambulate well due to shortness of breath. VITAL SIGNS: Temperature 98.8, pulse 60, respiratory 22, blood pressure 106/54, 99% on 1 liter nasal cannula. Input 150, output 200, negative 50. Current weight is 33.9 kg. Generally, appears her stated age, demented. Awake, alert, oriented to person only. Jugular venous distention. Positive 2 out of 6 systolic ejection murmur noted on the heart exam. S1, S2. LUNGS: Diminished breath sounds bilaterally. ABDOMEN: Is soft, nontender, nondistended. EXTREMITIES: No cyanosis, clubbing, or any pitting edema. LABORATORY DATA: White count 5.8, hemoglobin 12, hematocrit 38, platelet count 212. Sodium 147, potassium 3.7, chloride 110, bicarbonate 29, BUN 41, creatinine 1.27, glucose of 90. IMAGING STUDY: Chest CT, 02/18/2017, bilateral effusions, thoracic kyphosis, loculated on the left, moderate on the right, cardiomegaly, vascular calcification. ASSESSMENT AND PLAN: This is an 81-year-old female with history of nonischemic cardiomyopathy related to alcohol versus viral infection a decade ago, ejection fraction (EF) of 25%, chronic right bundle branch block, vitamin D deficiency, chronic obstructive pulmonary disease (COPD), hypertension, protein calorie malnutrition, cachexia, mitral valve regurgitation, currently a FULL CODE, presents with worsening shortness of breath, found to have bilateral pleural effusions, congestive heart failure (CHF) exacerbation. IMPRESSION: Acute congestive heart failure exacerbation, systolic/diastolic dysfunction. Remains a FULL CODE. Refer to Dr. Herrera for Lasix diuresis. Continued on digoxin, spironolactone, Coreg. Echocardiogram has been ordered. Mitral valve prolapse with chronic, severe mitral regurgitation. Followup echocardiogram. Patient is not a surgical candidate at this point. Hypertension. Stable on home medications. Chronic right bundle branch block. Unchanged. CODE STATUS: Still a FULL CODE.
--- NOTE | 2017-02-19 15:31 | ECHO ---
DATE OF STUDY: 02/19/2017 REFERRING PHYSICIAN: Dr. Ramos Herrera INDICATION: Acute on chronic systolic and diastolic heart failure, nonischemic dilated cardiomyopathy. HEIGHT: 163 cm WEIGHT: 28 kg 2D MEASUREMENTS: Left ventricle diastole: 5.8 cm Aortic root: 3.4 cm LVOT: 2.1 cm Left atrium: 5.4 cm Ventricular septum: 1.06 cm Posterior wall: 1.03 cm Inferior vena cava: 1.8 cm DOPPLER MEASUREMENTS: Mild aortic regurgitation. No aortic stenosis. Aortic valve velocity: 91.9 cm/s LVOT velocity: 54.5 cm/s LVOT VTI: 9.3 cm Moderately-severe mitral regurgitation. Mitral E velocity: 61.1 cm/s Mitral A velocity: 91.1 cm/s Mitral deceleration time: 161 ms Moderate tricuspid regurgitation. Estimated right ventricle systolic pressure: 56 mmHg assuming right pressure of 10 mmHg. Trace pulmonic regurgitation. MITRAL ANNULAR TISSUE DOPPLER: E prime septal: 5.2 cm/s E prime lateral: 4.2 cm/s DESCRIPTION: Rhythm was predominantly sinus bradycardia. Image quality was good. This is a 2D, M-mode, color flow Doppler, and pulse wave Doppler examination including mitral annular tissue Doppler. No pericardial effusion. CONCLUSIONS: 1. Mildly dilated left ventricle at end diastole with normal left ventricular (LV) wall thickness. Severe global LV hypokinesis. Severe reduction overall LV systolic function. Left ventricular ejection fraction (LVEF) 10% by visual estimate. Low cardiac output state. Grade 1 LV diastolic dysfunction (impaired relaxation filling pattern). 2. Severe left atrial dilatation. 3. Moderate mitral annular calcification. Mildly myxomatous mitral leaflets without mitral valve prolapse. No flail segments. Moderately-severe (3+/4) mitral regurgitation. 4. Suggestive of moderate elevation of estimated right ventricle systolic pressure (56 mmHg). Moderate tricuspid regurgitation. Moderate global hypokinesis of the right ventricle. Moderate reduction in right ventricle systolic function. Mild right atrial dilatation by visual assessment. Moderate tricuspid regurgitation. No tricuspid valve prolapse. 5. Right pleural effusion. 6. Moderate aortic valve sclerosis of a three-cusp aortic valve. No aortic stenosis. Moderate aortic regurgitation. 7. Small patent foramen ovale with left-right shunting observed by color-flow Doppler. [facility]
--- NOTE | 2017-02-19 15:39 | IPN ---
DATE: 02/19/2017 TIME: 3:20 p.m. SUBJECTIVE: The patient reports much less exertional dyspnea. She was able to walk a short distance in the hallway today. She still has some mild exertional dyspnea. No orthopnea or paroxysmal nocturnal dyspnea . No chest pain or chest discomfort. No lightheadedness. PHYSICAL EXAMINATION: Pleasant, cachectic, elderly woman who is not in any respiratory or psychological distress. She is hard of hearing. Temperature 99.4, pulse 86, respiratory rate 20, blood pressure 116/58, oxygen saturation 96% on room air. Weight today 33.9 kg. Jugular venous pulsations were at 10 cm. Respiratory expansion effort was fair. Diminished breath sounds at both bases. Dullness to percussion at both lung bases. First and second heart sounds were diminished. No S3 or S4 appreciated. Grade 2 pansystolic murmur at the apex. Abdomen was soft and nontender with normal bowel sounds. No lower extremity edema in the legs and ankles. LABORATORY WORK: 02/19/2017 shows sodium 147, potassium 3.7, chloride 110, CO2 29, BUN 41, creatinine 1.27, estimated GFR 42.8, glucose 90, BNP 3420. ASSESSMENT AND PLAN: 1. Nonischemic dilated cardiomyopathy. Currently acute on chronic systolic and diastolic heart failure. Clinically, she has improved in comparison to how she was at the time of admission. Currently, NYHA functional class III. She appears to be ongoing decompensated on examination. Continue Captopril, carvedilol, digoxin, IV furosemide, spironolactone at the current dosages. 2. Acute on chronic systolic and diastolic heart failure. As per dilated cardiomyopathy category above. 3. Mitral valve prolapse with mitral regurgitation. Mitral leaflets appeared xanthomatous without prolapse on the echocardiogram Doppler today. Moderately-severe (3+/4) mitral regurgitation on the echocardiogram Doppler from earlier today. Continue Captopril. The patient is not a candidate for any kind of mitral valve repair or replacement. 4. Systemic hypertension. Blood pressure controlled. Continue Captopril, carvedilol, IV furosemide, spironolactone. 5. Right bundle branch block with left posterior fascicular block, stable. 6. Abnormal ECG, stable.
[2017-02-19 16:00] VITALS: BP 107/56
[2017-02-19 20:00] VITALS: BP 103/59
[2017-02-19 21:25] VITALS: BP 112/50
[2017-02-19] MEDS: FAMOTIDINE 20 MG TAB PO SCH (21:35)
[2017-02-20] VITALS: BP 111/59
[2017-02-20 04:00] VITALS: BP 127/58
[2017-02-20 06:06] LABS: MEAN CORPUSCULAR HEMOGLOBIN 32.4 pg (27.0-33.0); MEAN CORPUSCULAR HGB CONC 32.5 g/dl (32.0-36.5); MEAN CORPUSCULAR VOLUME 99.7 fl (80.0-96.0); RED CELL DISTRIBUTION WIDTH 15.4 % (11.5-14.5); WHITE BLOOD COUNT 6.2 K/mm3 (4.0-10.0)
[2017-02-20] MEDS: FUROSEMIDE 40 MG/4 ML VIAL (J1940) IV SCH (06:12)
[2017-02-20] MEDS: LEVOTHYROXINE 0.05 MG TAB (50 MCG) PO SCH (06:12)
[2017-02-20] MEDS: SLF 3 ML SYR IV SCH (06:12)
[2017-02-20 06:22] LABS: CALCIUM LEVEL 9.1 MG/DL (8.8-10.2); CREATININE FOR GFR 1.2 MG/DL (0.55-1.02); GLOMERULAR FILTRATION RATE 45.7 (>32)
[2017-02-20] MEDS ORDERED: POTASSIUM CHLORIDE 10 MEQ SR TABLET PO ONE (07:30)
[2017-02-20 08:00] VITALS: BP 133/63
[2017-02-20] MEDS ORDERED: MAG SULF 1GM/100ML (MAG RUN) 1 GM in APPROPRIATE DILUENT 1 EA IV ONE (08:00)
[2017-02-20 08:25] VITALS: BP 133/63
[2017-02-20] MEDS: CYANOCOBALAMIN 500 MCG TAB PO SCH ×2 (08:25→09:00)
[2017-02-20] MEDS: CAPTOpril 6.25 MG PER 1/2 TABLET PO SCH (08:25)
[2017-02-20] MEDS: CARVedilol 3.125 MG TAB PO SCH (08:25)
[2017-02-20] MEDS: SPIRONOLACTONE 12.5MG PER 1/2 TABLET PO SCH (08:25)
[2017-02-20] MEDS: DOCUSATE SODIUM 100 MG CAP PO SCH (08:25)
[2017-02-20] MEDS: VITAMIN D 1,000 INTERNATIONAL UNITS TABLET PO SCH ×2 (08:25→09:00)
[2017-02-20] MEDS: HEPARIN SOD (PORCINE) 5000 UNITS/ML VIAL SC SCH (08:26)
[2017-02-20] MEDS ORDERED: DIGOXIN 0.125 MG TAB PO SCH (09:00)
[2017-02-20] MEDS ORDERED: POTASSIUM CHLORIDE 10 MEQ SR TABLET PO SCH (09:00)
--- NOTE | 2017-02-20 11:41 | DSES ---
DATE OF ADMISSION: 02/18/2017 DATE OF DISCHARGE: 02/20/2017 Patient signed out against medical advice on 02/20/2017. PRIMARY CARE PHYSICIAN: Dr. Venessa Reyes. VENEER MANUFACTURER: Dr. Ramos Herrera. PRIMARY DISCHARGE DIAGNOSES: Acute on chronic systolic and diastolic heart failure, ejection fraction 10%. Non-ischemic dilated cardiomyopathy. Mitral valve prolapse with mitral regurgitation, 3+ moderately severe mitral regurgitation, not a candidate for mitral valve repair or replacement. Abnormal EKG with chronic right bundle branch block and left posterior fascicular block. Hypertension. History of chronic obstructive pulmonary disease (COPD). Hypertension. Protein calorie malnutrition. Vitamin D deficiency. Severe calorie malnutrition. DISCHARGE MEDICATIONS: Patient signed out against medical advice without resolution of her discharge medications. She may continue her home medicines: - Captopril 6.25 mg twice daily - Lasix 20 daily - fenofibrate 54 mg daily - Tylenol 650 three times daily as needed - aspirin 81 daily - Coreg 3.125 twice daily - vitamin D3 2000 units daily - B12 1000 mcg daily - digoxin 0.125 mg three times weekly - Colace 200 mg twice daily - ranitidine 150 mg daily at bedtime - aldactone 12.5 mg daily FOLLOWUP ISSUES: Congestive heart failure (CHF) exacerbation. Patient signed out against medical advice. I have spoken with her primary care physician, Dr. Venessa Reyes that the patient's code status should be addressed due to her very guarded prognosis. She is most likely appropriate for DO NOT RESUSCITATE/DO NOT INTUBATE and comfort measures only in light of her refusal to proceed with any intervention and automatic implantable cardioverter-defibrillator (AICD) placement and treatment for her heart failure. HOSPITAL COURSE: This is an 81-year-old female with history of non-ischemic cardiomyopathy related to alcohol and possible viral infection noted for greater than a decade, ejection fraction 25%, chronic right bundle branch block, chronic obstructive pulmonary disease (COPD), hypertension, cachexia, protein calorie malnutrition with mitral valve prolapse, moderately severe mitral regurgitation presented to the emergency room with dyspnea on exertion and at rest. She was previously admitted in November for decompensated heart failure, was placed on IV dobutamine and Lasix drip. She has had decreased oral intake and urine output, was found to be in florid heart failure. Dr. Herrera was consulted. Echocardiogram repeated showed an ejection fraction of 10% with grade 1 diastolic dysfunction, severe reduction in systolic function, moderately severe mitral regurgitation with mitral valve prolapse, moderate tricuspid regurgitation and small patent foramen ovale with left to right shunting observed by color flow. She was placed on IV Lasix 40 mg every 8 hours, continued on spironolactone, Captopril and Coreg 3.25 twice daily. Admission weight was 33.9 kg. Discharge weight 33.6 kg. Urine output of 1 liter. Patient had symptomatic improvement, was able to breathe easier. CT chest showed bilateral pleural effusions, loculated on the left, moderate size on the right, cardiomegaly, vascular calcification with no definite mass lesion and moderate thoracic kyphosis. Patient's family had taken the patient against medical advice. IV site was removed and patient left against medical advice. LABS ON DISCHARGE: White count 6.2, hemoglobin 12, hematocrit 37, platelet count 210. Sodium 146, potassium 3, chloride 107, bicarbonate 32, BUN 35, creatinine 1.2, glucose of 104. BNP 3980. Troponin 0.05. IMAGING STUDY: Chest CT 02/18: Bilateral pleural effusions loculated on the left, moderate on the right. Exaggerated thoracic kyphosis, cardiomegaly, vascular calcification with no definite mass lesion.
== END 2017-02-20 10:56 | disposition left against medical advice (07) | DRG 291 ==
LOC: M ED 16:10 → M ED INP 18:18 → M PCU 21:24
PROVIDERS: ADMIT Internal Medicine; ATTEND General Practice
DX: I50.43 Acute on chronic combined systolic (congestive) and diastolic (congestive) heart failure (principal); E43 Unspecified severe protein-calorie malnutrition; Z68.1 Body mass index [BMI] 19.9 or less, adult; I42.6 Alcoholic cardiomyopathy; R64 Cachexia; N17.9 Acute kidney failure, unspecified; E87.0 Hyperosmolality and hypernatremia; J90 Pleural effusion, not elsewhere classified; K59.00 Constipation, unspecified; I34.1 Nonrheumatic mitral (valve) prolapse; I34.0 Nonrheumatic mitral (valve) insufficiency; D53.9 Nutritional anemia, unspecified; I10 Essential (primary) hypertension; J44.9 Chronic obstructive pulmonary disease, unspecified; I45.10 Unspecified right bundle-branch block; E55.9 Vitamin D deficiency, unspecified; Z79.82 Long term (current) use of aspirin; Z79.899 Other long term (current) drug therapy; Z90.3 Acquired absence of stomach [part of]

== ENCOUNTER 2017-03-20 16:40 | Inpatient (IN) | payer MEDICARE ==
[~2017-03-20] VITALS: Ht 162.6 cm; Wt 45.2 kg
[~2017-03-20 16:40] MED LIST changes: +ASPI81TA7 PO; +FURO20TA2 PO; +MAPA650T PO; +MULT1TAB18 PO; +RANI150T PO; +VITA100072 PO; +VITA200038 PO
[2017-03-20] MEDS ORDERED: LEVO25TA5 PO (17:24)
[2017-03-20] MEDS ORDERED: VITA100041 PO (17:24)
[2017-03-20 17:25] LABS: BASO % 0.1 % (0.0-1.0); EOS % 0.6 % (0.0-3.0); LARGE UNSTAINED CELL % 0.8 % (0.0-4.0); LYMPH # 0.8 K/mm3 (1.5-4.5); LYMPH % 13.1 % (24.0-44.0); MEAN CORPUSCULAR HEMOGLOBIN 33.4 pg (27.0-33.0); MEAN CORPUSCULAR HGB CONC 32.8 g/dl (32.0-36.5); MONO # 0.2 K/mm3 (0.0-0.8); MONO % 4.1 % (0.0-5.0); NEUTROPHILS # 4.8 K/mm3 (1.8-7.7); NEUTROPHILS % 81.4 % (36.0-66.0); PLATELET COUNT, AUTOMATED 265 k/mm3 (150-450); RED CELL DISTRIBUTION WIDTH 14.6 % (11.5-14.5); WHITE BLOOD COUNT 5.9 K/mm3 (4.0-10.0)
--- NOTE | 2017-03-20 17:45 | REP ---
Clinical: Altered mental status . Findings: Age-related atrophy and microvascular ischemic changes are appreciated. The ventricles and sulci are symmetric. Cotter-white differentiation is maintained. There is no evidence for acute intracranial hemorrhage, mass/mass effect, pathology or infarction. No extra-axial fluid collection. Calvarium is intact. Paranasal sinuses and mastoid air cells are clear. Impression: Age related atrophy and microvascular ischemic changes. No acute intracranial hemorrhage, infarction, or mass/mass effect. Signed by Narendra Franco MD 03/20/2017 05:36 P
--- NOTE | 2017-03-20 17:47 | REP ---
Clinical: Altered mental status. Comparison: 02/18/2017. Findings: Moderate bilateral pleural effusions and bibasilar infiltrates (right greater than left) are suspected. Underlying chronic changes noted. No pneumothorax. Impression: Moderate pleural effusions and bibasilar opacities (right greater than left). Signed by Narendra Franco MD 03/20/2017 05:38 P
[2017-03-20 17:57] LABS: ALBUMIN 2.3 GM/DL (3.2-5.2); ALBUMIN/GLOBULIN RATIO 0.82 (1.00-1.93); ALKALINE PHOSPHATASE 89 U/L (45-117); ALT/SGPT 11 U/L (12-78); ANION GAP 6 MEQ/L (8-16); AST/SGOT 23 U/L (15-37); BILIRUBIN,DIRECT < 0.1 MG/DL (0.0-0.2); BILIRUBIN,TOTAL 0.2 MG/DL (0.2-1.0); BLOOD UREA NITROGEN 21 MG/DL (7-18); CALCIUM LEVEL 8.1 MG/DL (8.8-10.2); CARBON DIOXIDE LEVEL 31 MEQ/L (21-32); CHLORIDE LEVEL 93 MEQ/L (98-107); CREATININE FOR GFR 0.84 MG/DL (0.55-1.02); GLOMERULAR FILTRATION RATE > 60.0 (>32); GLUCOSE, FASTING 127 MG/DL (83-110); SODIUM LEVEL 130 MEQ/L (136-145); TOTAL PROTEIN 5.1 GM/DL (6.4-8.2)
[2017-03-20 18:19] LABS: DIGOXIN LEVEL 2.2 NG/ML (0.5-2.0)
[2017-03-20] MEDS ORDERED: TYLE325C PO (19:04)
[2017-03-20] MEDS ORDERED: ALBU83IN INH (19:04)
[2017-03-20] MEDS ORDERED: ARNU1INH INH (19:04)
--- NOTE | 2017-03-20 19:31 | ECGEPIP ---
Stationary ECG Study [facility] - ED Test Date: 2017-03-20 Pat Name: STEPHENIE FLORES Department: Room: - Gender: F Step Finisher: sb : 1935 Requested By: MARIA Olivera Order Number: [id number] Reading MD: Sancho Lauren Measurements Intervals [place] Rate: 73 P: 267 [place]: 162 QRS: 47 QRSD: 131 T: 19 QT: 344 QTc: 379 Interpretive Statements SINUS RHYTHM RIGHT BUNDLE BRANCH BLOCK NSTTW ABNORMALITIES SIMILAR TO 11/04/16 Electronically Signed On 03-20-2017 19:31:19 EDT by Sancho Lauren
[2017-03-20] MEDS ORDERED: FUROSEMIDE 40 MG/4 ML VIAL (J1940) IV ONE (19:45)
[2017-03-20] MEDS ORDERED: ONDANSETRON 4MG/2ML VIAL (J2405) IV PRN (19:45)
[2017-03-20] MEDS ORDERED: BISACODYL 5 MG TAB PO PRN (19:45)
[2017-03-20] MEDS ORDERED: LEVOTHYROXINE 0.0375MG (37.5MCG) PER 1/2 TABLET PO ONE (19:45)
[2017-03-20] MEDS ORDERED: ASPIRIN 81 MG CHEW TABLET PO ONE (20:00)
[2017-03-20] MEDS ORDERED: metOLazone 5 MG TAB PO ONE (20:00)
[2017-03-20 21:24] VITALS: BP 101/49
[2017-03-20] MEDS: SENOKOT S TAB PO SCH (21:29)
[2017-03-20] MEDS ORDERED: ALBUTEROL SULFATE 2.5 MG/0.5 ML INH NEB SOLN INH PRN (21:45)
[2017-03-20 23:15] VITALS: BP 115/35
[2017-03-21] MEDS ORDERED: FUROSEMIDE 40 MG/4 ML VIAL (J1940) IV SCH
--- NOTE | 2017-03-21 | REPUSA ---
Clinical history: edema. Findings: The left common femoral, superficial femoral, popliteal, and other deep venous structures c ompress normally and demonstrate normal color Doppler flow. Normal venous waveforms with augmentation are seen. Impression: No evidence of deep vein thrombosis in the left femoral popliteal venous system.
--- NOTE | 2017-03-21 01:44 | HPEPDOC ---
General Date of Admission March 20, 2017 at 19:33 Primary Care Physician: Venessa Reyes Attending Physician: KEYSHA MOSLEY MD Chief Complaint The patient is a 81-year-old female admitted with a reason for visit of Altered Mental Status. Source: Family, RN notes reviewed, Old records Timing/Duration: This afternoon Associated Symptoms: Unobtainable History of Present Illness Cousins is an 81-year-old female who presents to [facility]'s emergency Department for altered mental status. She is unable to provide a history or her reason for her admission to the hospital. Past medical history significant for diastolic and systolic congestive heart failure with a left ventricular ejection fraction of 10%, hypertension, chronic obstructive pulmonary disease, hypothyroidism, iron deficiency anemia, constipation, gastroesophageal reflux disease, nonischemic cardiomyopathy, vitamin D deficiency, protein calorie malnutrition with cachexia. Daughter of patient notes that patient ate very little of her morning breakfast and took her morning medications, but did well and did not appear to be altered at that time. Another sister returned in the afternoon to administer her afternoon medications and lunch. She returned a little while later and notes that the patient was sitting in her recliner, but that she could not wake her up. They were concerned and contacted emergency medical services. By the time emergency medical services arrived they reported that patient was alert and wanted to be left alone. Per patient, she was taking a nap and she kept being woken up. Patient denies vomiting, diarrhea, chest pain or pressure. Besides positive review of systems as above all other review of systems are negative. CT of the chest without contrast performed in the emergency department showed a large partially loculated bilateral pleural effusion with bibasilar atelectasis/ partial collapse. Also shows cardiomegaly. A prior CT of the chest without contrast on 02/18/2017 showed "bilateral pleural effusions; loculated on the left and moderate in size on the right. Markedly exaggerated thoracic kyphosis. Cardiomegaly and vascular calcification. No definite mass lesion." Prior to admission on 02/18/2017 presented to the emergency room with dyspnea on exertion and at rest. She was previously admitted in November for decompensated heart failure, was placed on IV dobutamine and Lasix drip. She has had decreased oral intake and urine output, was found to be in florid heart failure. Dr. Herrera was consulted. Echocardiogram repeated showed an ejection fraction of 10% with grade 1 diastolic dysfunction, severe reduction in systolic function, moderately severe mitral regurgitation with mitral valve prolapse, moderate tricuspid regurgitation and small patent foramen ovale with left to right shunting observed by color flow. She was placed on IV Lasix 40 mg every 8 hours, continued on spironolactone, Captopril and Coreg 3.25 twice daily. Admission weight was 33.9 kg. Discharge weight 33.6 kg. Urine output of 1 liter. Patient had symptomatic improvement, was able to breathe easier. CT chest showed bilateral pleural effusions, loculated on the left, moderate size on the right, cardiomegaly, vascular calcification with no definite mass lesion and moderate thoracic kyphosis. Patient's family had taken the patient against medical advice. IV site was removed and patient left against medical advice. Hospitalist service was consulted this evening and patient was admitted for further medical management. Home Medications Scheduled (Ferate) 27 Mg Tab, 54 MG PO DAILY, (Reported) (Tylenol) 325 Mg Cap, 325 MG PO TID, (Reported) (Arnuity Ellipta) 100 Mcg/Act Inh, 100 MCG INH DAILY, (Reported) Aspirin (Aspirin) 81 Mg Tab, 81 MG PO DAILY, (Reported) Captopril (Captopril) 12.5 Mg Tab, 6.25 MG PO BID, (Reported) Carvedilol (Carvedilol) 3.125 Mg Tab, 3.125 MG PO BID, (Reported) Cholecalciferol (Vitamin D3) 1,000 Unit Cap, 1,000 UNIT PO BID, (Reported) AM AND NOON Cyanocobalamin (Vitamin B12) 1,000 Mcg Tab, 500 MCG PO DAILY, (Reported) TAKES AT NOON Digoxin (Digoxin) 0.125 Mg Tab, 0.125 MG PO 3XW, (Reported) THURSDAY, THURSDAY, AND THURSDAY Docusate Sodium (Colace) 100 Mg Cap, 200 MG PO BID, (Reported) Furosemide (Furosemide) 20 Mg Tab, 20 MG PO DAILY, (Reported) Levothyroxine Sodium (Synthroid) 25 Mcg Tab, 25 MCG PO DAILY, (Reported) Ranitidine HCl (Ranitidine HCl) 150 Mg Tab, 1 TAB PO QHS, (Reported) Spironolactone (Spironolactone) 25 Mg Tab, 12.5 MG PO DAILY, (Reported) Scheduled PRN Albuterol Sulfate (Albuterol Sulfate) 2.5 Mg/3 Ml Nebu, 2.5 MG INH QID PRN for SHORTNESS OF BREATH, (Reported) Allergies Coded Allergies: No Known Allergies (Verified , 06/30/04) Past Medical History Medical History 1. Diastolic and systolic congestive heart failure with a left ventricular ejection fraction of 10% 2. Hypertension 3. Chronic obstructive pulmonary disease 4. Hypothyroidism 5. Iron deficiency anemia 6. History of constipation 7. Gastroesophageal reflux disease 8. Non-ischemic cardiomyopathy 9. Vitamin D deficiency 10. Protein calorie malnutrition with cachexia Surgical History 1. Left femoral neck open reduction internal fixation 2. Partial gastrectomy Family History No pertinent family history Social History Lives with daughter Denies tobacco use Denies alcohol use Review of Symptoms Pulmonary: Denies: Dyspnea Cardiovascular: Denies: Chest Pain Gastrointestinal: Denies: Vomiting, Diarrhea Other systems Patient denies any acute complaints Physical Examination General Exam: Positive: Other (somewhat fatigued and lethargic) Eye Exam: Positive: PERRLA, Conjunctiva & lids normal, EOMI, Negative: Sclera icteric, Ptosis ENT Exam: Positive: Atraumatic Neck Exam: Positive: Supple, Negative: JVD, thyromegaly, Lymphadenopathy Chest Exam: Negative: Clear to auscultation, Normal air movement Heart Exam: Positive: Rate Normal, Regular Rhythm, Normal S1, Normal S2, Murmurs (grade 2/6 lee-systolic murmur), Negative: Gallops, Rubs Telemetry: Positive: Sinus, Other Telemetry: (right bundle branch block) Abdomen Exam: Positive: BS Hypoactive, Soft, Negative: Tenderness, Hepatospenomegaly, Mass, Hernia Extremity Exam: Positive: Edema (left lower extremity, +2), Normal pulses, Negative: Clubbing, Cyanosis, Tenderness Skin Exam: Positive: Other skin issue (cachectic), Negative: Nl turgor and temperature Other physical findings Head CT without contrast Impression: Age related atrophy and microvascular ischemic changes. No acute intracranial hemorrhage, infarction, or mass/mass effect. Portable chest x-ray IMPRESSION: Moderate pleural effusions and bibasilar opacities (right greater than left). Duplex ultrasound left lower extremity IMPRESSION: No evidence of deep vein thrombosis in the left femoral popliteal venous system. Vital Signs Vital Signs Date Time Temp Pulse Resp B/P (MAP) Pulse Ox O2 Delivery O2 Flow Rate FiO2 03/20/17 21:24 98.6 62 20 101/49 (66) 99 Nasal Cannula 3.0 Height (in): 64 Weight (kg): 35.8 BMI (kg): 13.5 Laboratory Data Labs 24H Laboratory Tests 2 03/20/17 17:03: White Blood Count 5.9, Red Blood Count 3.83L, Hemoglobin 12.8, Hematocrit 39.0, Mean Corpuscular Volume 102.0H, Mean Corpuscular Hemoglobin 33.4H, Mean Corpuscular Hemoglobin Concent 32.8, Red Cell Distribution Width 14.6H, Platelet Count 265, Neutrophils (%) (Auto) 81.4H, Lymphocytes (%) (Auto) 13.1L, Monocytes (%) (Auto) 4.1, Eosinophils (%) (Auto) 0.6, Basophils (%) (Auto) 0.1, Neutrophils # (Auto) 4.8, Lymphocytes # (Auto) 0.8L, Monocytes # (Auto) 0.2, Eosinophils # (Auto) 0.0, Basophils # (Auto) 0.0, Large Unclassified Cells % 0.8 , Large Unclassified Cells # 0.0, Anion Gap 6L, Glomerular Filtration Rate > 60.0, Calcium Level 8.1L, Aspartate Amino Transf (AST/SGOT) 23, Alanine Aminotransferase (ALT/SGPT) 11L, Alkaline Phosphatase 89, Total Bilirubin 0.2, Direct Bilirubin < 0.1, Total Creatine Kinase 58, Creatine Kinase MB 2.9, Creatine Kinase MB Relative Index 5.00H, Troponin I 0.11H, B-Type Natriuretic Peptide 4230H, Total Protein 5.1L, Albumin 2.3L, Albumin/Globulin Ratio 0.82L, Thyroid Stimulating Hormone (TSH) 108.000H, Free Thyroxine 0.70L, Digoxin Level 2.2H 03/20/17 17:16: Urine Appearance CLEAR, Urine Color YELLOW, Urine pH 5.0, Urine Specific [place] 1.016, Urine Protein NEGATIVE, Urine Glucose (UA) NEGATIVE, Urine Ketones NEGATIVE, Urine Urobilinogen 0.2, Urine Bilirubin NEGATIVE, Urine Leukocyte Esterase NEGATIVE, Urine Blood NEGATIVE, Urine Nitrite NEGATIVE, Urine WBC (Auto) 1, Urine RBC (Auto) 0, Urine Hyaline Casts (Auto) 11, Urine Bacteria (Auto) 1+H, Urine Squamous Epithelial Cells 0, Urine Mucus (Auto) SMALL , Urine Sperm (Auto) CBC/BMP Laboratory Tests 03/20/17 17:03 Red Blood Count 3.83 L, Mean Corpuscular Volume 102.0 H, Mean Corpuscular Hemoglobin 33.4 H, Mean Corpuscular Hemoglobin Concent 32.8, Red Cell Distribution Width 14.6 H, Neutrophils (%) (Auto) 81.4 H, Lymphocytes (%) (Auto ) 13.1 L, Monocytes (%) (Auto) 4.1, Eosinophils (%) (Auto) 0.6, Basophils (%) ( Auto) 0.1, Neutrophils # (Auto) 4.8, Lymphocytes # (Auto) 0.8 L, Monocytes # ( Auto) 0.2, Eosinophils # (Auto) 0.0, Basophils # (Auto) 0.0 Microbiology Microbiology 03/20/17 Urine Culture, Received Pending Assessment/Plan Ms. Ledesmas is an 81-year-old female with a past medical history significant for diastolic and systolic congestive heart failure with a left ventricular ejection fraction of 10%, hypertension, chronic obstructive pulmonary disease, hypothyroidism, iron deficiency anemia, constipation, gastroesophageal reflux disease, nonischemic cardiomyopathy, vitamin D deficiency, protein calorie malnutrition with cachexia who presents with altered mental status secondary to exacerbation of congestive heart failure. Plan / VTE VTE Prophylaxis Ordered?: Yes (Lovenox 30 mg subcutaneous daily) Plan / Urinary Catheter Reason for insertion/continuin: Critical Pt monitoring Plan Plan Altered mental status Likely secondary to acute exacerbation of congestive heart failure. BNP 4230. Transthoracic echocardiogram on 02/19/2017 reported diastolic and systolic dysfunction with left ventricular ejection fraction 10%. Chest x-ray reveals pleural effusions with bibasilar opacities, right greater than left. Received Lasix in the emergency department. Continue Lasix drip at this time. Could consider thoracentesis a chest tube for bilateral pleural effusions. Urinalysis was unrevealing. Urine culture pending. Head CT negative. Oxygen therapy for patient's hypoxia. Elevated cardiac markers Likely secondary to underlying cardiac disease and cardiomyopathy. EKG reveals normal sinus rhythm with right bundle branch block. Not significantly different to priors. Continue to trend cardiac markers. Left lower extremity edema Likely related to third spacing secondary to acute exacerbation of congestive heart failure. Duplex ultrasound was negative. Continue to monitor. Physical therapy assessment. Elevated digoxin level The patient's digoxin the time being. Monitor potassium. Elevated TSH Patient is subtherapeutic on levothyroxine. Increased patient's levothyroxine to 37.5 g per day. Hypertension Health patient's captopril and carvedilol for the time being as pressures have been soft. Have also held patient's spironolactone. Coronary artery disease Continue patient on home dose of aspirin. Patient is on Lovenox 30 mg subcutaneous daily for DVT prophylaxis. Gastric esophageal reflux disease Continue patient on famotidine. Protein calorie malnutrition with cachexia Continue patient on vitamin B-12 supplementation. Add Ensure to patient's diet. Constipation Continue patient on Colace, Senokot S, and Dulcolax. Disposition Admit to: Progressive care unit Anticipated hospitalization: > 2 nights Attending: Dr. Ott CODE STATUS: Full code Diet: Continue Current (no added salt) Activity: Encourage Ambulation Therapy: PT Diagnostics: Check Labs, Repeat Labs in AM, Obtain Cultures Advanced Directives: MOLST Form is available (full code), Health Care Proxy ( HCP) STEVE BONILLA March 20, 2017 22:37
[2017-03-21] MEDS ORDERED: FUROSEMIDE injection 250 MG in D5W 225 ML IV SCH (02:30)
[2017-03-21 03:00] VITALS: BP 100/35
[2017-03-21 05:26] LABS: BASO % 0.3 % (0.0-1.0); EOS % 0.2 % (0.0-3.0); LARGE UNSTAINED CELL # 0.1 K/mm3 (0.0-0.4); LARGE UNSTAINED CELL % 1.8 % (0.0-4.0); LYMPH # 0.9 K/mm3 (1.5-4.5); LYMPH % 15.5 % (24.0-44.0); MEAN CORPUSCULAR HEMOGLOBIN 33.4 pg (27.0-33.0); MEAN CORPUSCULAR HGB CONC 31.9 g/dl (32.0-36.5); MEAN CORPUSCULAR VOLUME 104.8 fl (80.0-96.0); MONO # 0.5 K/mm3 (0.0-0.8); MONO % 7.6 % (0.0-5.0); NEUTROPHILS # 4.5 K/mm3 (1.8-7.7); NEUTROPHILS % 74.6 % (36.0-66.0); PLATELET COUNT, AUTOMATED 255 k/mm3 (150-450); RED CELL DISTRIBUTION WIDTH 14.7 % (11.5-14.5)
[2017-03-21] MEDS: LEVOTHYROXINE 0.0375MG (37.5MCG) PER 1/2 TABLET PO SCH (05:46)
[2017-03-21 05:47] LABS: ANION GAP 5 MEQ/L (8-16)
[2017-03-21 06:12] LABS: BLOOD UREA NITROGEN 25 MG/DL (7-18); CALCIUM LEVEL 8.2 MG/DL (8.8-10.2); CARBON DIOXIDE LEVEL 34 MEQ/L (21-32); CHLORIDE LEVEL 94 MEQ/L (98-107); CREATININE FOR GFR 0.99 MG/DL (0.55-1.02); DIGOXIN LEVEL 2.1 NG/ML (0.5-2.0); GLUCOSE, FASTING 93 MG/DL (83-110); MAGNESIUM LEVEL 1.7 MG/DL (1.8-2.4); POTASSIUM SERUM 4.8 MEQ/L (3.5-5.1); SODIUM LEVEL 133 MEQ/L (136-145); T UPTAKE 34 % (30-39); THYROXINE (T4) 4.2 UG/DL (4.5-12.0)
--- NOTE | 2017-03-21 07:29 | ECGEPIP ---
Stationary ECG Study [facility] Test Date: 2017-03-21 Pat Name: STEPHENIE FLORES Department: Room: [place] [address] Gender: F Workday Director: : [id number] Requested By: KEYSHA Workman Order Number: [id number] Reading MD: Crystal Sharma Measurements Intervals [place] Rate: 53 P: 83 [place]: 199 QRS: 81 QRSD: 135 T: 134 QT: 406 QTc: 383 Interpretive Statements SINUS BRADYCARDIA BORDERLINE 1ST DEGREE BLOCK NEW RATE SLOWER RIGHT BUNDLE BRANCH BLOCK STTW ABN LAE(OVERLOAD PATTERN) NEW C/W 03/20/17 Electronically Signed On 03-21-2017 7:29:10 EDT by Crystal Sharma
[2017-03-21] MEDS ORDERED: MAG SULF 1GM/100ML (MAG RUN) 1 GM in APPROPRIATE DILUENT 1 EA IV ONE (07:30)
[2017-03-21 08:00] VITALS: BP 100/49
--- NOTE | 2017-03-21 08:43 | IPNPDOC ---
Subjective Date Seen The patient was seen on 03/21/17. Subjective Chief Complaint/HPI The patient is a 81-year-old female admitted with a reason for visit of Altered Mental Status. Events since last encounter Very hard of hearing but no obvious complaints. General: Denies: ROS Unobtainable, Chills, Night Sweats, Fatigue, Malaise, Normal Appetite, Other Symptoms Constitutional: Denies: Chills, Fever, Malaise, Night Sweats, Weakness, Fatigue , Weight Loss, Lethargy, Other Eyes: Denies: Pain, Vision change, Conjunctivae inflammation, Eyelid inflammation, Redness, Other ENT: Denies: Head Aches, Ear Pain, Dysphagia, Sinus Congestion, Post Nasal Drip , Sore Throat, Epistaxis, Other Symptoms Skin: Denies: Rash, Lesions, Jaundice, Bruising, Itching, Dry, Breakdown, Nail Changes, Other Pulmonary: Denies: Dyspnea, Cough, Pleuritic Chest Pain, Other Symptoms Cardiovascular: Denies: Chest Pain, Palpitations, Orthopnea, Paroxysmal Noc. Dyspnea, Edema, Lt Headedness, Other Symptoms Gastrointestinal: Denies: Nausea, Vomiting, Abdominal Pain, Diarrhea, Constipation, Melena, Hematochezia, Other Symptoms Objective Physical Examination General Exam: Positive: Alert, Cooperative, No Acute Distress, Other (elderely , frail, cachectic, lying comfortably in bed) Eye Exam: Positive: PERRLA, Conjunctiva & lids normal, EOMI, Negative: Sclera icteric ENT Exam: Positive: Atraumatic Neck Exam: Positive: Supple Chest Exam: Positive: Clear to auscultation, Diminished Heart Exam: Positive: Rate Normal, Regular Rhythm, Normal S1, Normal S2, Murmurs (grade 2/6 lee-systolic murmur), Negative: Gallops, Rubs Telemetry: Positive: No significant arrhythmia, Sinus Abdomen Exam: Positive: Normal bowel sounds, Soft, Negative: Tenderness, Hepatospenomegaly, Mass, Hernia Extremity Exam: Positive: Edema (left lower extremity, +2) Skin Exam: Positive: Other skin issue (cachectic) Psych Exam: Positive: Oriented x 3 Assessment /Plan Problems (1) Non-compliance Status: Chronic Discussed With: Patient, Health Care Proxy Problem Text: Complicates medical care. (2) Altered mental status Status: Chronic Discussed With: Patient, Health Care Proxy Problem Specific Plan: Monitor Clinically, Repeat Labs Problem Text: Discussed with daughter Emma at length, who states that her mentation has been waxing and waning for the past several months. Will check ABG and ammonia levels, but this is likely a chronic age related deterioration. (3) CHF (congestive heart failure) Status: Chronic Discussed With: Socket Welder Helper, Patient Problem Specific Plan: Consult Specialist, Monitor Clinically Problem Text: currently on lasix drip - will be discontinued previous echo showed systolic and diastolic failure, lv ef estimated at 10% discussed with cardiology - assistance appreciated - no role for diuretics or additional intervention regarding heart failure BNP elevated but improved from previous admission x-rays look unchanged from previous admission 1 month ago baseline no O2 requirements - wean O2 - saturating well on room air I/O's, daily weights (4) COPD (chronic obstructive pulmonary disease) Status: Chronic Discussed With: Patient Problem Specific Plan: Monitor Clinically Problem Text: wean o2 88-92% respiratory regimen (5) Protein calorie malnutrition Status: Chronic Discussed With: Patient, Health Care Proxy (6) Cachexia Status: Chronic Discussed With: Patient, Health Care Proxy (7) Troponin level elevated Status: Acute Discussed With: Patient, Health Care Proxy Problem Specific Plan: Consult Specialist, Monitor Clinically, Repeat Labs Problem Text: Likely secondary to demand ischemia. (8) Pleural effusion Status: Acute Problem Text: Acute / chronic - appears to be stable from January, but new compared with November (9) Hypothyroidism Status: Acute (10) HTN (hypertension) Status: Chronic Problem Specific Plan: Monitor Clinically Plan/VTE VTE Prophylaxis Ordered?: Yes (Lovenox 30 mg subcutaneous daily) Plan/Urinary Catheter Urinary Catheter: D/C [place] Reason for insertion/continuin: Critical Pt monitoring Plan Diet: Continue Current (no added salt) Therapy: PT Medications: Change to IV, Change to PO Respiratory: Wean Oxygen Diagnostics: Check Labs, Repeat Labs in AM, Obtain Cultures Anticipated Discharge: Home, Home With Services Advance Directives: DNR Extensive discussion with daughter/HCP Santa on the phone regarding code status. She states she wishes to honor her mother's original decision for DNR/DNI as per MOLST form completed in November. However there is documentation stating full code status from her previous hospital visit, and that the original MOLST form had been rescinded. She stated she is agreeable with signing a new MOLST form consistent with the previous MOLST form. She states that her altered mentation has been ongoing for the past several months and waxing and waning. States she typically does not walk very much, even with the use of ambulatory aids (rolling walker). She was started on a lasix drip, cardiology consultation pending for further assistance. Poor prognosis. UPDATE: Discussed in person with daughter Emma at bedside. Not clear regarding an official health care proxy, however two daughters at bedside agree that their mother's wishes was for DNR/DNI status, which is consistent with MOLST form completed November 2016 by the patient. New MOLST form completed and witnessed with code status as previous MOLST - DNR/ DNI. VS, I&O, 24H, Fishbone Vital Signs/I&O Vital Signs Date Time Temp Pulse Resp B/P (MAP) Pulse Ox O2 Delivery O2 Flow Rate FiO2 03/21/17 08:20 Nasal Cannula 3.0 03/21/17 03:00 97.7 52 28 100/35 (56) 03/20/17 23:15 100 I&O- Last 24 Hours up to 6 AM 03/21/17 06:00 Intake Total 71 ml Output Total 150 ml Balance -79 ml Laboratory Data 24H LABS Laboratory Tests 2 03/20/17 17:03: White Blood Count 5.9, Red Blood Count 3.83L, Hemoglobin 12.8, Hematocrit 39.0, Mean Corpuscular Volume 102.0H, Mean Corpuscular Hemoglobin 33.4H, Mean Corpuscular Hemoglobin Concent 32.8, Red Cell Distribution Width 14.6H, Platelet Count 265, Neutrophils (%) (Auto) 81.4H, Lymphocytes (%) (Auto) 13.1L, Monocytes (%) (Auto) 4.1, Eosinophils (%) (Auto) 0.6, Basophils (%) (Auto) 0.1, Neutrophils # (Auto) 4.8, Lymphocytes # (Auto) 0.8L, Monocytes # (Auto) 0.2, Eosinophils # (Auto) 0.0, Basophils # (Auto) 0.0, Large Unclassified Cells % 0.8 , Large Unclassified Cells # 0.0, Anion Gap 6L, Glomerular Filtration Rate > 60.0, Calcium Level 8.1L, Aspartate Amino Transf (AST/SGOT) 23, Alanine Aminotransferase (ALT/SGPT) 11L, Alkaline Phosphatase 89, Total Bilirubin 0.2, Direct Bilirubin < 0.1, Total Creatine Kinase 58, Creatine Kinase MB 2.9, Creatine Kinase MB Relative Index 5.00H, Troponin I 0.11H, B-Type Natriuretic Peptide 4230H, Total Protein 5.1L, Albumin 2.3L, Albumin/Globulin Ratio 0.82L, Thyroid Stimulating Hormone (TSH) 108.000H, Free Thyroxine 0.70L, Digoxin Level 2.2H 03/20/17 17:16: Urine Appearance CLEAR, Urine Color YELLOW, Urine pH 5.0, Urine Specific [place] 1.016, Urine Protein NEGATIVE, Urine Glucose (UA) NEGATIVE, Urine Ketones NEGATIVE, Urine Urobilinogen 0.2, Urine Bilirubin NEGATIVE, Urine Leukocyte Esterase NEGATIVE, Urine Blood NEGATIVE, Urine Nitrite NEGATIVE, Urine WBC (Auto) 1, Urine RBC (Auto) 0, Urine Hyaline Casts (Auto) 11, Urine Bacteria (Auto) 1+H, Urine Squamous Epithelial Cells 0, Urine Mucus (Auto) SMALL , Urine Sperm (Auto) 03/20/17 23:44: Total Creatine Kinase 45, Creatine Kinase MB 2.0, Creatine Kinase MB Relative Index 4.44H, Troponin I 0.15#H 03/21/17 04:23: White Blood Count 6.0, Red Blood Count 3.55L, Hemoglobin 11.9L, Hematocrit 37.2 , Mean Corpuscular Volume 104.8H, Mean Corpuscular Hemoglobin 33.4H, Mean Corpuscular Hemoglobin Concent 31.9L, Red Cell Distribution Width 14.7H, Platelet Count 255, Neutrophils (%) (Auto) 74.6H, Lymphocytes (%) (Auto) 15.5L, Monocytes (%) (Auto) 7.6H, Eosinophils (%) (Auto) 0.2, Basophils (%) (Auto) 0.3 , Neutrophils # (Auto) 4.5, Lymphocytes # (Auto) 0.9L, Monocytes # (Auto) 0.5, Eosinophils # (Auto) 0.0, Basophils # (Auto) 0.0, Large Unclassified Cells % 1.8 , Large Unclassified Cells # 0.1, Anion Gap 5L, Glomerular Filtration Rate 57.0 , Calcium Level 8.2L, Total Creatine Kinase 40, Creatine Kinase MB 2.4, Troponin I 0.18H, Thyroid Stimulating Hormone (TSH) 103.000H, Digoxin Level 2.1H , Blood Urea Nitrogen 25H, Creatinine 0.99, Sodium Level 133L, Potassium Level 4.8, Chloride Level 94L, Carbon Dioxide Level 34H, Magnesium Level 1.7L, Free Thyroxine Index 1.4, Thyroxine (T4) 4.2L, Triiodothyronine (T3) Uptake 34 CBC/BMP Laboratory Tests 03/20/17 17:03 Red Blood Count 3.83 L, Mean Corpuscular Volume 102.0 H, Mean Corpuscular Hemoglobin 33.4 H, Mean Corpuscular Hemoglobin Concent 32.8, Red Cell Distribution Width 14.6 H, Neutrophils (%) (Auto) 81.4 H, Lymphocytes (%) (Auto ) 13.1 L, Monocytes (%) (Auto) 4.1, Eosinophils (%) (Auto) 0.6, Basophils (%) ( Auto) 0.1, Neutrophils # (Auto) 4.8, Lymphocytes # (Auto) 0.8 L, Monocytes # ( Auto) 0.2, Eosinophils # (Auto) 0.0, Basophils # (Auto) 0.0 03/21/17 04:23 Red Blood Count 3.55 L, Mean Corpuscular Volume 104.8 H, Mean Corpuscular Hemoglobin 33.4 H, Mean Corpuscular Hemoglobin Concent 31.9 L, Red Cell Distribution Width 14.7 H, Neutrophils (%) (Auto) 74.6 H, Lymphocytes (%) (Auto ) 15.5 L, Monocytes (%) (Auto) 7.6 H, Eosinophils (%) (Auto) 0.2, Basophils (%) (Auto) 0.3, Neutrophils # (Auto) 4.5, Lymphocytes # (Auto) 0.9 L, Monocytes # ( Auto) 0.5, Eosinophils # (Auto) 0.0, Basophils # (Auto) 0.0, Calcium Level 8.2 L , Total Creatine Kinase 40 Microbiology Microbiology 03/20/17 Urine Culture, Received Pending EVY ALFORD MD March 21, 2017 08:43
[2017-03-21] MEDS ORDERED: CARVedilol 3.125 MG TAB PO SCH (09:00)
[2017-03-21 09:10] LABS: ABG BASE EXCESS -6.3 (-2.0-2.0); ABG HCO3 20.3 MEQ/L (22.0-26.0); ABG PARTIAL PRESSURE CO2 44.6 mmHg (35.0-45.0); ABG PARTIAL PRESSURE O2 192.6 mmHg (75.0-100.0); ABG STANDARD HCO3 19.4 MEQ/L (22.0-26.0); ABG TOTAL CO2 21.7 MEQ/L (23.0-31.0); ABG pH (ARTERIAL) 7.277 UNITS (7.350-7.450)
[2017-03-21] MEDS: ASPIRIN 81 MG ENTERIC TAB PO SCH (09:20)
[2017-03-21] MEDS: VITAMIN D 1,000 INTERNATIONAL UNITS TABLET PO SCH ×2 (09:20→14:15)
[2017-03-21] MEDS: DOCUSATE SODIUM 100 MG CAP PO SCH ×2 (09:20→21:24)
[2017-03-21] MEDS: SENOKOT S TAB PO SCH ×2 (09:21→21:24)
[2017-03-21] MEDS: ENOXAPARIN 30 MG/0.3 ML SYR (J1650) SC SCH (09:22)
--- NOTE | 2017-03-21 11:27 | REP ---
Clinical: Pleural effusion. Comparison: 02/18/2017. Findings: Large bilateral partially loculated pleural effusions are identified (right greater than left) with associated partial collapse to the lower lobes. Associated cardiomegaly is appreciated along with atherosclerotic changes to the thoracic aorta and coronary arteries. No pericardial effusion identified. Surrounding musculoskeletal structures are intact. Impression: Large bilateral partially loculated pleural effusions with associated partial collapse to the lower lobes (right greater than left). Cardiomegaly and atherosclerotic changes to the thoracic aorta and coronary arteries. Signed by Narendra Franco MD 03/21/2017 11:18 A
[2017-03-21 12:00] VITALS: BP 98/51
[2017-03-21] MEDS: SPIRONOLACTONE 12.5MG PER 1/2 TABLET PO SCH (14:01)
[2017-03-21] MEDS: CAPTOpril 6.25 MG PER 1/2 TABLET PO SCH ×2 (14:02→21:05)
[2017-03-21] MEDS: CYANOCOBALAMIN 500 MCG TAB PO SCH (14:15)
[2017-03-21 16:00] VITALS: BP 102/39
[2017-03-21 20:00] VITALS: BP 102/51
[2017-03-21] MEDS: FAMOTIDINE 20 MG TAB PO SCH (21:24)
[2017-03-21 21:47] VITALS: BP 117/59
[2017-03-22] MEDS: LEVOTHYROXINE 0.0375MG (37.5MCG) PER 1/2 TABLET PO SCH (05:34)
[2017-03-22 06:00] VITALS: BP 132/72
[2017-03-22 06:25] LABS: BASO % 0.2 % (0.0-1.0); EOS % 0.6 % (0.0-3.0); LARGE UNSTAINED CELL # 0.1 K/mm3 (0.0-0.4); LARGE UNSTAINED CELL % 1.8 % (0.0-4.0); LYMPH # 0.8 K/mm3 (1.5-4.5); LYMPH % 17.3 % (24.0-44.0); MEAN CORPUSCULAR HEMOGLOBIN 33.4 pg (27.0-33.0); MEAN CORPUSCULAR HGB CONC 32.3 g/dl (32.0-36.5); MEAN CORPUSCULAR VOLUME 103.2 fl (80.0-96.0); MONO # 0.4 K/mm3 (0.0-0.8); MONO % 8.2 % (0.0-5.0); NEUTROPHILS # 3.3 K/mm3 (1.8-7.7); NEUTROPHILS % 71.9 % (36.0-66.0); PLATELET COUNT, AUTOMATED 239 k/mm3 (150-450); RED CELL DISTRIBUTION WIDTH 14.7 % (11.5-14.5); WHITE BLOOD COUNT 4.6 K/mm3 (4.0-10.0)
[2017-03-22 06:47] LABS: ANION GAP 5 MEQ/L (8-16); BLOOD UREA NITROGEN 27 MG/DL (7-18); CALCIUM LEVEL 8.2 MG/DL (8.8-10.2); CARBON DIOXIDE LEVEL 33 MEQ/L (21-32); CHLORIDE LEVEL 91 MEQ/L (98-107); CREATININE FOR GFR 0.84 MG/DL (0.55-1.02); GLOMERULAR FILTRATION RATE > 60.0 (>32); GLUCOSE, FASTING 77 MG/DL (83-110); MAGNESIUM LEVEL 1.9 MG/DL (1.8-2.4); POTASSIUM SERUM 3.7 MEQ/L (3.5-5.1); SODIUM LEVEL 129 MEQ/L (136-145)
[2017-03-22] MEDS: SENOKOT S TAB PO SCH ×2 (08:43→20:48)
[2017-03-22] MEDS: SPIRONOLACTONE 12.5MG PER 1/2 TABLET PO SCH (08:43)
[2017-03-22] MEDS: VITAMIN D 1,000 INTERNATIONAL UNITS TABLET PO SCH ×2 (08:43→12:37)
[2017-03-22] MEDS: ASPIRIN 81 MG ENTERIC TAB PO SCH (08:43)
[2017-03-22] MEDS: DOCUSATE SODIUM 100 MG CAP PO SCH ×2 (08:43→20:48)
[2017-03-22] MEDS: ENOXAPARIN 30 MG/0.3 ML SYR (J1650) SC SCH (08:44)
[2017-03-22] MEDS: CAPTOpril 6.25 MG PER 1/2 TABLET PO SCH ×2 (08:48→20:40)
--- NOTE | 2017-03-22 10:06 | IPNPDOC ---
Subjective Date Seen The patient was seen on 03/22/17. Subjective Chief Complaint/HPI The patient is a 81-year-old female admitted with a reason for visit of Altered Mental Status. Events since last encounter Very hard of hearing, poor historian. General: Denies: ROS Unobtainable, Chills, Night Sweats, Fatigue, Malaise, Normal Appetite, Other Symptoms Constitutional: Denies: Chills, Fever, Malaise, Night Sweats, Weakness, Fatigue , Weight Loss, Lethargy, Other Eyes: Denies: Pain, Vision change, Conjunctivae inflammation, Eyelid inflammation, Redness, Other ENT: Denies: Head Aches, Ear Pain, Dysphagia, Sinus Congestion, Post Nasal Drip , Sore Throat, Epistaxis, Other Symptoms Skin: Denies: Rash, Lesions, Jaundice, Bruising, Itching, Dry, Breakdown, Nail Changes, Other Pulmonary: Denies: Dyspnea, Cough, Pleuritic Chest Pain, Other Symptoms Cardiovascular: Denies: Chest Pain, Palpitations, Orthopnea, Paroxysmal Noc. Dyspnea, Edema, Lt Headedness, Other Symptoms Gastrointestinal: Denies: Nausea, Vomiting, Abdominal Pain, Diarrhea, Constipation, Melena, Hematochezia, Other Symptoms Objective Physical Examination General Exam: Positive: Alert, Cooperative, No Acute Distress, Other (elderely , frail, cachectic, lying comfortably in bed) Eye Exam: Positive: PERRLA, Conjunctiva & lids normal, EOMI, Negative: Sclera icteric ENT Exam: Positive: Atraumatic Neck Exam: Positive: Supple Chest Exam: Positive: Clear to auscultation, Diminished Heart Exam: Positive: Rate Normal, Regular Rhythm, Murmurs Abdomen Exam: Positive: Normal bowel sounds, Soft, Negative: Tenderness, Hepatospenomegaly, Mass, Hernia Extremity Exam: Positive: Edema (left lower extremity, +1) Skin Exam: Positive: Other skin issue (cachectic) Psych Exam: Positive: Oriented x 3 Assessment /Plan Problems (1) Non-compliance Status: Chronic Discussed With: Patient, Health Care Proxy Problem Text: Complicates medical care. (2) Altered mental status Status: Chronic Discussed With: Patient, Health Care Proxy Problem Specific Plan: Monitor Clinically, Repeat Labs Problem Text: Discussed with daughter Emma at length, who states that her mentation has been waxing and waning for the past several months. Workup unremarkable, likely chronic age related deterioration complicated with metabolic encephalopathy. (3) CHF (congestive heart failure) Status: Chronic Discussed With: Radio Interference Investigator, Patient Problem Specific Plan: Consult Specialist, Monitor Clinically Problem Text: compensated previous echo showed systolic and diastolic failure, lv ef estimated at 10% discussed with cardiology - assistance appreciated - no role for diuretics or additional intervention regarding heart failure BNP elevated but improved from previous admission x-rays look unchanged from previous admission 1 month ago saturating well on room air (4) COPD (chronic obstructive pulmonary disease) Status: Chronic Discussed With: Patient Problem Specific Plan: Monitor Clinically Problem Text: wean o2 88-92% respiratory regimen (5) Protein calorie malnutrition Status: Chronic Discussed With: Patient, Health Care Proxy (6) Cachexia Status: Chronic Discussed With: Patient, Health Care Proxy (7) Troponin level elevated Status: Resolved Response to Treatment: Improving Discussed With: Patient, Health Care Proxy Problem Specific Plan: Consult Specialist, Monitor Clinically, Repeat Labs Problem Text: Likely secondary to demand ischemia. (8) Pleural effusion Status: Chronic Problem Text: Acute / chronic - appears to be stable from January, but new compared with November (9) Hypothyroidism Status: Acute Problem Text: Synthroid dose increased (10) HTN (hypertension) Status: Chronic Problem Specific Plan: Monitor Clinically Problem Text: Pressures low in the hospital. Carvedilol discontinued secondary to bradycardia. Continue captopril with hold parameters. Plan/VTE VTE Prophylaxis Ordered?: Yes (Lovenox 30 mg subcutaneous daily) Plan/Urinary Catheter Urinary Catheter: D/C [place] Plan Diet: Continue Current (no added salt) Therapy: PT, OT Diagnostics: Obtain Cultures Anticipated Discharge: Home, Home With Services Advance Directives: DNR Pending PT/OT eval and treat. PFS to evaluate for home care. VS, I&O, 24H, Fishbone Vital Signs/I&O Vital Signs Date Time Temp Pulse Resp B/P (MAP) Pulse Ox O2 Delivery O2 Flow Rate FiO2 03/22/17 08:48 127/58 03/22/17 06:00 97.9 74 17 93 NIPPV (BIPAP/CPAP) 03/21/17 08:20 3.0 I&O- Last 24 Hours up to 6 AM 03/22/17 06:00 Intake Total 507 ml Output Total 775 ml Balance -268 ml Laboratory Data 24H LABS Laboratory Tests 2 03/21/17 12:36: Total Creatine Kinase 61, Creatine Kinase MB 2.1, Creatine Kinase MB Relative Index 3.44, Troponin I 0.12#H 03/22/17 05:34: White Blood Count 4.6, Red Blood Count 3.49L, Hemoglobin 11.6L, Hematocrit 36.0 , Mean Corpuscular Volume 103.2H, Mean Corpuscular Hemoglobin 33.4H, Mean Corpuscular Hemoglobin Concent 32.3, Red Cell Distribution Width 14.7H, Platelet Count 239, Neutrophils (%) (Auto) 71.9H, Lymphocytes (%) (Auto) 17.3L, Monocytes (%) (Auto) 8.2H, Eosinophils (%) (Auto) 0.6, Basophils (%) (Auto) 0.2 , Neutrophils # (Auto) 3.3, Lymphocytes # (Auto) 0.8L, Monocytes # (Auto) 0.4, Eosinophils # (Auto) 0.0, Basophils # (Auto) 0.0, Large Unclassified Cells % 1.8 , Large Unclassified Cells # 0.1, Anion Gap 5L, Glomerular Filtration Rate > 60.0, Blood Urea Nitrogen 27H, Creatinine 0.84, Sodium Level 129L, Potassium Level 3.7#, Chloride Level 91L, Carbon Dioxide Level 33H, Calcium Level 8.2L, Magnesium Level 1.9 CBC/BMP Laboratory Tests 03/22/17 05:34 Red Blood Count 3.49 L, Mean Corpuscular Volume 103.2 H, Mean Corpuscular Hemoglobin 33.4 H, Mean Corpuscular Hemoglobin Concent 32.3, Red Cell Distribution Width 14.7 H, Neutrophils (%) (Auto) 71.9 H, Lymphocytes (%) (Auto ) 17.3 L, Monocytes (%) (Auto) 8.2 H, Eosinophils (%) (Auto) 0.6, Basophils (%) (Auto) 0.2, Neutrophils # (Auto) 3.3, Lymphocytes # (Auto) 0.8 L, Monocytes # ( Auto) 0.4, Eosinophils # (Auto) 0.0, Basophils # (Auto) 0.0, Calcium Level 8.2 L Microbiology Microbiology 03/20/17 Urine Culture - Final, Complete EVY ALFORD MD March 22, 2017 10:06
[2017-03-22] MEDS: CYANOCOBALAMIN 500 MCG TAB PO SCH (12:37)
[2017-03-22 14:00] VITALS: BP 128/58
[2017-03-22] MEDS: FAMOTIDINE 20 MG TAB PO SCH (20:48)
[2017-03-22] MEDS: ACETAMINOPHEN TAB 650MG DOSE (2X325MG) PO PRN (20:49)
[2017-03-22 22:00] VITALS: BP 116/56
[2017-03-23] MEDS: ACETAMINOPHEN TAB 650MG DOSE (2X325MG) PO PRN (02:24)
[2017-03-23 05:48] LABS: BASO % 0.3 % (0.0-1.0); EOS % 0.4 % (0.0-3.0); LARGE UNSTAINED CELL # 0.1 K/mm3 (0.0-0.4); LARGE UNSTAINED CELL % 1.4 % (0.0-4.0); LYMPH # 0.8 K/mm3 (1.5-4.5); LYMPH % 20.5 % (24.0-44.0); MEAN CORPUSCULAR HEMOGLOBIN 33.6 pg (27.0-33.0); MEAN CORPUSCULAR HGB CONC 33.6 g/dl (32.0-36.5); MEAN CORPUSCULAR VOLUME 99.9 fl (80.0-96.0); MONO # 0.3 K/mm3 (0.0-0.8); NEUTROPHILS # 2.6 K/mm3 (1.8-7.7); NEUTROPHILS % 70.3 % (36.0-66.0); PLATELET COUNT, AUTOMATED 233 k/mm3 (150-450); RED CELL DISTRIBUTION WIDTH 14.9 % (11.5-14.5); WHITE BLOOD COUNT 3.7 K/mm3 (4.0-10.0)
[2017-03-23] MEDS: LEVOTHYROXINE 0.0375MG (37.5MCG) PER 1/2 TABLET PO SCH (05:49)
[2017-03-23 06:00] VITALS: BP 109/53
[2017-03-23 06:03] LABS: ANION GAP 7 MEQ/L (8-16); BLOOD UREA NITROGEN 28 MG/DL (7-18); CARBON DIOXIDE LEVEL 33 MEQ/L (21-32); CHLORIDE LEVEL 92 MEQ/L (98-107); CREATININE FOR GFR 0.92 MG/DL (0.55-1.02); GLOMERULAR FILTRATION RATE > 60.0 (>32); GLUCOSE, FASTING 76 MG/DL (83-110); POTASSIUM SERUM 3.7 MEQ/L (3.5-5.1); SODIUM LEVEL 132 MEQ/L (136-145)
[2017-03-23] MEDS: ENOXAPARIN 30 MG/0.3 ML SYR (J1650) SC SCH (08:58)
[2017-03-23] MEDS: CAPTOpril 6.25 MG PER 1/2 TABLET PO SCH ×2 (08:58→21:45)
[2017-03-23] MEDS: SPIRONOLACTONE 12.5MG PER 1/2 TABLET PO SCH (08:58)
[2017-03-23] MEDS: ASPIRIN 81 MG ENTERIC TAB PO SCH (08:59)
[2017-03-23] MEDS: VITAMIN D 1,000 INTERNATIONAL UNITS TABLET PO SCH ×2 (08:59→12:21)
[2017-03-23] MEDS: DOCUSATE SODIUM 100 MG CAP PO SCH ×2 (08:59→21:46)
[2017-03-23] MEDS: SENOKOT S TAB PO SCH ×2 (08:59→21:45)
--- NOTE | 2017-03-23 11:11 | IPNPDOC ---
Subjective Date Seen The patient was seen on 03/23/17. Subjective Chief Complaint/HPI The patient is a 81-year-old female admitted with a reason for visit of Altered Mental Status. General: Denies: ROS Unobtainable, Chills, Night Sweats, Fatigue, Malaise, Normal Appetite, Other Symptoms Constitutional: Denies: Chills, Fever, Malaise, Night Sweats, Weakness, Fatigue , Weight Loss, Lethargy, Other Eyes: Denies: Pain, Vision change, Conjunctivae inflammation, Eyelid inflammation, Redness, Other ENT: Denies: Head Aches, Ear Pain, Dysphagia, Sinus Congestion, Post Nasal Drip , Sore Throat, Epistaxis, Other Symptoms Skin: Denies: Rash, Lesions, Jaundice, Bruising, Itching, Dry, Breakdown, Nail Changes, Other Pulmonary: Denies: Dyspnea, Cough, Pleuritic Chest Pain, Other Symptoms Cardiovascular: Denies: Chest Pain, Palpitations, Orthopnea, Paroxysmal Noc. Dyspnea, Edema, Lt Headedness, Other Symptoms Gastrointestinal: Denies: Nausea, Vomiting, Abdominal Pain, Diarrhea, Constipation, Melena, Hematochezia, Other Symptoms Genitourinary: Denies: Dysuria, Frequency, Incontinence, Hematuria, Retention, Other Symptoms Objective Physical Examination General Exam: Positive: Alert, Cooperative, No Acute Distress, Other (elderely , frail, cachectic, lying comfortably in bed) Eye Exam: Positive: PERRLA, Conjunctiva & lids normal, EOMI, Negative: Sclera icteric ENT Exam: Positive: Atraumatic, Other ENT (very hard of hearing) Neck Exam: Positive: Supple Chest Exam: Positive: Clear to auscultation, Diminished Heart Exam: Positive: Rate Normal, Regular Rhythm Abdomen Exam: Positive: Normal bowel sounds, Soft, Negative: Tenderness, Hepatospenomegaly, Mass, Hernia Extremity Exam: Positive: Edema (very frail extremities, 2-3+ b/l LE edema) Skin Exam: Positive: Other skin issue Psych Exam: Positive: Oriented x 3 (grossly oriented to person place time with prompting) Assessment /Plan Problems (1) Non-compliance Status: Chronic Discussed With: Patient, Health Care Proxy Problem Text: Complicates medical care. (2) Altered mental status Status: Chronic Discussed With: Patient, Health Care Proxy Problem Specific Plan: Monitor Clinically, Repeat Labs Problem Text: Discussed with daughter Emma at length, who states that her mentation has been waxing and waning for the past several months. Workup unremarkable, likely chronic age related deterioration complicated with metabolic encephalopathy. (3) CHF (congestive heart failure) Status: Chronic Discussed With: Rag Sorter, Patient Problem Specific Plan: Consult Specialist, Monitor Clinically Problem Text: compensated patient states her lower extremity is chronic? previous echo showed systolic and diastolic failure, lv ef estimated at 10% discussed with cardiology - assistance appreciated - no role for diuretics or additional intervention regarding heart failure recommendations to resume home medications BNP elevated but improved from previous admission x-rays look unchanged from previous admission 1 month ago saturating well on room air (4) COPD (chronic obstructive pulmonary disease) Status: Chronic Discussed With: Patient Problem Specific Plan: Monitor Clinically Problem Text: wean o2 88-92% - saturating well on room air respiratory regimen (5) Protein calorie malnutrition Status: Chronic Discussed With: Patient, Health Care Proxy (6) Cachexia Status: Chronic Discussed With: Patient, Health Care Proxy (7) Troponin level elevated Status: Resolved Response to Treatment: Improving Discussed With: Patient, Health Care Proxy Problem Specific Plan: Consult Specialist, Monitor Clinically, Repeat Labs Problem Text: Likely secondary to demand ischemia. (8) Pleural effusion Status: Chronic Problem Text: Acute / chronic - appears to be stable from January, but new compared with November (9) Hypothyroidism Status: Acute Problem Text: Synthroid dose increased (10) HTN (hypertension) Status: Chronic Problem Specific Plan: Monitor Clinically Problem Text: Pressures low in the hospital. Carvedilol discontinued secondary to bradycardia. Continue captopril with hold parameters. Plan/VTE VTE Prophylaxis Ordered?: Yes (Lovenox 30 mg subcutaneous daily) Plan/Urinary Catheter Urinary Catheter: D/C [place] Plan Diet: Continue Current (no added salt) Therapy: PT, OT Diagnostics: Obtain Cultures Anticipated Discharge: Home, Home With Services Advance Directives: DNR PT/OT evaluation. PFS eval for likely home care. Sig LE edema, however blood pressures low. VS, I&O, 24H, Fishbone Vital Signs/I&O Vital Signs Date Time Temp Pulse Resp B/P (MAP) Pulse Ox O2 Delivery O2 Flow Rate FiO2 03/23/17 08:58 109/53 03/23/17 06:00 97.3 72 15 92 Room Air 03/21/17 08:20 3.0 I&O- Last 24 Hours up to 6 AM 03/23/17 05:59 Intake Total 780 ml Output Total 250 ml Balance 530 ml Laboratory Data 24H LABS Laboratory Tests 2 03/23/17 05:09: White Blood Count 3.7L, Red Blood Count 3.37L, Hemoglobin 11.3L, Hematocrit 33.7L, Mean Corpuscular Volume 99.9H, Mean Corpuscular Hemoglobin 33.6H, Mean Corpuscular Hemoglobin Concent 33.6, Red Cell Distribution Width 14.9H, Platelet Count 233, Neutrophils (%) (Auto) 70.3H, Lymphocytes (%) (Auto) 20.5L, Monocytes (%) (Auto) 7.0H, Eosinophils (%) (Auto) 0.4, Basophils (%) (Auto) 0.3 , Neutrophils # (Auto) 2.6, Lymphocytes # (Auto) 0.8L, Monocytes # (Auto) 0.3, Eosinophils # (Auto) 0.0, Basophils # (Auto) 0.0, Large Unclassified Cells % 1.4 , Large Unclassified Cells # 0.1, Anion Gap 7L, Glomerular Filtration Rate > 60.0, Blood Urea Nitrogen 28H, Creatinine 0.92, Sodium Level 132L, Potassium Level 3.7, Chloride Level 92L, Carbon Dioxide Level 33H, Calcium Level 8.0L CBC/BMP Laboratory Tests 03/23/17 05:09 Red Blood Count 3.37 L, Mean Corpuscular Volume 99.9 H, Mean Corpuscular Hemoglobin 33.6 H, Mean Corpuscular Hemoglobin Concent 33.6, Red Cell Distribution Width 14.9 H, Neutrophils (%) (Auto) 70.3 H, Lymphocytes (%) (Auto ) 20.5 L, Monocytes (%) (Auto) 7.0 H, Eosinophils (%) (Auto) 0.4, Basophils (%) (Auto) 0.3, Neutrophils # (Auto) 2.6, Lymphocytes # (Auto) 0.8 L, Monocytes # ( Auto) 0.3, Eosinophils # (Auto) 0.0, Basophils # (Auto) 0.0, Calcium Level 8.0 L Microbiology Microbiology 03/20/17 Urine Culture - Final, Complete EVY ALFORD MD March 23, 2017 11:10
[2017-03-23] MEDS: CYANOCOBALAMIN 500 MCG TAB PO SCH (12:21)
[2017-03-23 14:00] VITALS: BP 113/55
[2017-03-23] MEDS: FAMOTIDINE 20 MG TAB PO SCH (21:45)
[2017-03-23 22:00] VITALS: BP 124/75
[2017-03-24] MEDS: LEVOTHYROXINE 0.0375MG (37.5MCG) PER 1/2 TABLET PO SCH (05:45)
[2017-03-24 06:00] VITALS: BP 124/64
[2017-03-24 07:28] LABS: BASO % 0.3 % (0.0-1.0); EOS % 0.6 % (0.0-3.0); LARGE UNSTAINED CELL # 0.1 K/mm3 (0.0-0.4); LARGE UNSTAINED CELL % 1.7 % (0.0-4.0); LYMPH # 0.8 K/mm3 (1.5-4.5); LYMPH % 20.2 % (24.0-44.0); MEAN CORPUSCULAR HEMOGLOBIN 33.6 pg (27.0-33.0); MEAN CORPUSCULAR HGB CONC 33.5 g/dl (32.0-36.5); MEAN CORPUSCULAR VOLUME 100.4 fl (80.0-96.0); MONO # 0.3 K/mm3 (0.0-0.8); MONO % 7.8 % (0.0-5.0); NEUTROPHILS # 2.6 K/mm3 (1.8-7.7); NEUTROPHILS % 69.3 % (36.0-66.0); PLATELET COUNT, AUTOMATED 235 k/mm3 (150-450); RED CELL DISTRIBUTION WIDTH 14.9 % (11.5-14.5); WHITE BLOOD COUNT 3.8 K/mm3 (4.0-10.0)
[2017-03-24 07:45] LABS: ANION GAP 4 MEQ/L (8-16); BLOOD UREA NITROGEN 25 MG/DL (7-18); CALCIUM LEVEL 8.1 MG/DL (8.8-10.2); CARBON DIOXIDE LEVEL 35 MEQ/L (21-32); CHLORIDE LEVEL 92 MEQ/L (98-107); GLOMERULAR FILTRATION RATE > 60.0 (>32); GLUCOSE, FASTING 79 MG/DL (83-110); SODIUM LEVEL 131 MEQ/L (136-145)
[2017-03-24] MEDS: ENOXAPARIN 30 MG/0.3 ML SYR (J1650) SC SCH (08:54)
[2017-03-24] MEDS: VITAMIN D 1,000 INTERNATIONAL UNITS TABLET PO SCH ×2 (08:54→12:06)
[2017-03-24] MEDS: DOCUSATE SODIUM 100 MG CAP PO SCH ×2 (08:54→20:56)
[2017-03-24] MEDS: CAPTOpril 6.25 MG PER 1/2 TABLET PO SCH ×2 (08:54→20:57)
[2017-03-24] MEDS: ASPIRIN 81 MG ENTERIC TAB PO SCH (08:54)
[2017-03-24] MEDS: SPIRONOLACTONE 12.5MG PER 1/2 TABLET PO SCH (08:54)
[2017-03-24] MEDS: SENOKOT S TAB PO SCH ×2 (08:54→20:56)
[2017-03-24 08:57] VITALS: BP 143/65
[2017-03-24] MEDS: CYANOCOBALAMIN 500 MCG TAB PO SCH (12:06)
[2017-03-24 14:00] VITALS: BP 125/66
--- NOTE | 2017-03-24 16:44 | IPNPDOC ---
Subjective Date Seen The patient was seen on 03/24/17. Subjective Chief Complaint/HPI The patient is a 81-year-old female admitted with a reason for visit of Altered Mental Status. Events since last encounter Feeling ok, wants to go home, still is weak/tired, not short of breath, tolerating diet, no complaint, but perhaps not a fantastic historian Constitutional: Denies: Chills Skin: Denies: Rash Pulmonary: Denies: Dyspnea, Cough Cardiovascular: Denies: Chest Pain, Palpitations Gastrointestinal: Denies: Nausea, Vomiting, Abdominal Pain Objective Physical Examination General Exam: Positive: No Acute Distress, Other (elderely, frail, cachectic, lying comfortably in bed) Eye Exam: Positive: PERRLA, Negative: Sclera icteric Neck Exam: Positive: Supple Chest Exam: Positive: Clear to auscultation, Diminished Heart Exam: Positive: Rate Normal, Regular Rhythm Abdomen Exam: Positive: Normal bowel sounds, Soft, Hernia, Negative: Tenderness, Hepatospenomegaly Extremity Exam: Positive: Edema (very frail extremities, 2-3+ b/l LE edema ) Skin Exam: Positive: Other skin issue Neuro Exam: Positive: Sensation Intact Psych Exam: Positive: Oriented x 3 Assessment /Plan Problems (1) Non-compliance Status: Chronic Discussed With: Patient, Health Care Proxy Problem Text: Complicates medical care. (2) Altered mental status Status: Chronic Discussed With: Patient, Health Care Proxy Problem Specific Plan: Monitor Clinically, Repeat Labs Problem Text: Dr. Ott discussed with daughter Emma at length, who states that her mentation has been waxing and waning for the past several months. Workup unremarkable, likely chronic age related deterioration complicated with metabolic encephalopathy. (3) CHF (congestive heart failure) Status: Chronic Discussed With: Marketing Administrator, Patient Problem Specific Plan: Consult Specialist, Monitor Clinically Problem Text: compensated patient states her lower extremity is chronic? previous echo showed systolic and diastolic failure, lv ef estimated at 10% discussed with cardiology - assistance appreciated - no role for diuretics or additional intervention regarding heart failure recommendations to resume home medications BNP elevated but improved from previous admission x-rays look unchanged from previous admission 1 month ago saturating well on room air (4) COPD (chronic obstructive pulmonary disease) Status: Chronic Discussed With: Patient Problem Specific Plan: Monitor Clinically Problem Text: wean o2 88-92% - saturating well on room air respiratory regimen (5) Protein calorie malnutrition Status: Chronic Discussed With: Patient, Health Care Proxy (6) Cachexia Status: Chronic Discussed With: Patient, Health Care Proxy (7) Troponin level elevated Status: Resolved Response to Treatment: Improving Discussed With: Patient, Health Care Proxy Problem Specific Plan: Consult Specialist, Monitor Clinically, Repeat Labs Problem Text: Likely secondary to demand ischemia. (8) Pleural effusion Status: Chronic Problem Text: Acute / chronic - appears to be stable from January, but new compared with November (9) Hypothyroidism Status: Acute Problem Text: Synthroid dose increased (10) HTN (hypertension) Status: Chronic Problem Specific Plan: Monitor Clinically Problem Text: Pressures low in the hospital. Carvedilol discontinued secondary to bradycardia. Continue captopril with hold parameters. Plan/VTE VTE Prophylaxis Ordered?: Yes (Lovenox 30 mg subcutaneous daily) Plan/Urinary Catheter Urinary Catheter: D/C [place] Plan Diet: Continue Current (no added salt) Therapy: PT, OT Diagnostics: Obtain Cultures Anticipated Discharge: Home, Home With Services Advance Directives: DNR VS, I&O, 24H, Brandi Vital Signs/I&O Vital Signs Date Time Temp Pulse Resp B/P (MAP) Pulse Ox O2 Delivery O2 Flow Rate FiO2 03/24/17 08:57 143/65 (91) 03/24/17 08:15 Room Air 03/24/17 06:00 97.6 71 15 95 03/21/17 08:20 3.0 I&O- Last 24 Hours up to 6 AM 03/24/17 06:00 Intake Total 660 ml Output Total 200 ml Balance 460 ml Laboratory Data 24H LABS Laboratory Tests 2 03/24/17 07:08: White Blood Count 3.8L, Red Blood Count 3.26L, Hemoglobin 10.9L, Hematocrit 32.7L, Mean Corpuscular Volume 100.4H, Mean Corpuscular Hemoglobin 33.6H, Mean Corpuscular Hemoglobin Concent 33.5, Red Cell Distribution Width 14.9H, Platelet Count 235, Neutrophils (%) (Auto) 69.3H, Lymphocytes (%) (Auto) 20.2L, Monocytes (%) (Auto) 7.8H, Eosinophils (%) (Auto) 0.6, Basophils (%) (Auto) 0.3 , Neutrophils # (Auto) 2.6, Lymphocytes # (Auto) 0.8L, Monocytes # (Auto) 0.3, Eosinophils # (Auto) 0.0, Basophils # (Auto) 0.0, Large Unclassified Cells % 1.7 , Large Unclassified Cells # 0.1, Anion Gap 4L, Glomerular Filtration Rate > 60.0, Blood Urea Nitrogen 25H, Creatinine 0.80, Sodium Level 131L, Potassium Level 4.0, Chloride Level 92L, Carbon Dioxide Level 35H, Calcium Level 8.1L CBC/BMP Laboratory Tests 03/24/17 07:08 Red Blood Count 3.26 L, Mean Corpuscular Volume 100.4 H, Mean Corpuscular Hemoglobin 33.6 H, Mean Corpuscular Hemoglobin Concent 33.5, Red Cell Distribution Width 14.9 H, Neutrophils (%) (Auto) 69.3 H, Lymphocytes (%) (Auto ) 20.2 L, Monocytes (%) (Auto) 7.8 H, Eosinophils (%) (Auto) 0.6, Basophils (%) (Auto) 0.3, Neutrophils # (Auto) 2.6, Lymphocytes # (Auto) 0.8 L, Monocytes # ( Auto) 0.3, Eosinophils # (Auto) 0.0, Basophils # (Auto) 0.0, Calcium Level 8.1 L Microbiology Microbiology 03/20/17 Urine Culture - Final, Complete FLINT,MARGARITO Mccollum MD March 24, 2017 16:44
[2017-03-24] MEDS: FAMOTIDINE 20 MG TAB PO SCH (20:57)
[2017-03-24 22:00] VITALS: BP 117/67
[2017-03-25] MEDS: LEVOTHYROXINE 0.0375MG (37.5MCG) PER 1/2 TABLET PO SCH (05:55)
[2017-03-25 06:00] VITALS: BP 129/62
[2017-03-25 06:32] LABS: BASO % 0.2 % (0.0-1.0); EOS % 0.5 % (0.0-3.0); LARGE UNSTAINED CELL # 0.1 K/mm3 (0.0-0.4); LARGE UNSTAINED CELL % 1.6 % (0.0-4.0); LYMPH # 0.8 K/mm3 (1.5-4.5); MEAN CORPUSCULAR HEMOGLOBIN 33.5 pg (27.0-33.0); MEAN CORPUSCULAR HGB CONC 33.4 g/dl (32.0-36.5); MEAN CORPUSCULAR VOLUME 100.4 fl (80.0-96.0); MONO # 0.4 K/mm3 (0.0-0.8); NEUTROPHILS # 3.2 K/mm3 (1.8-7.7); NEUTROPHILS % 71.8 % (36.0-66.0); PLATELET COUNT, AUTOMATED 233 k/mm3 (150-450); RED CELL DISTRIBUTION WIDTH 14.7 % (11.5-14.5); WHITE BLOOD COUNT 4.5 K/mm3 (4.0-10.0)
[2017-03-25 06:38] LABS: ANION GAP 3 MEQ/L (8-16); BLOOD UREA NITROGEN 21 MG/DL (7-18); CALCIUM LEVEL 8.5 MG/DL (8.8-10.2); CARBON DIOXIDE LEVEL 33 MEQ/L (21-32); CHLORIDE LEVEL 96 MEQ/L (98-107); CREATININE FOR GFR 0.59 MG/DL (0.55-1.02); GLOMERULAR FILTRATION RATE > 60.0 (>32); GLUCOSE, FASTING 79 MG/DL (83-110); POTASSIUM SERUM 4.3 MEQ/L (3.5-5.1); SODIUM LEVEL 132 MEQ/L (136-145)
[2017-03-25] MEDS: CAPTOpril 6.25 MG PER 1/2 TABLET PO SCH ×2 (09:33→21:18)
[2017-03-25] MEDS: SPIRONOLACTONE 12.5MG PER 1/2 TABLET PO SCH (09:33)
[2017-03-25] MEDS: SENOKOT S TAB PO SCH ×2 (09:34→21:18)
[2017-03-25] MEDS: ASPIRIN 81 MG ENTERIC TAB PO SCH (09:34)
[2017-03-25] MEDS: ENOXAPARIN 30 MG/0.3 ML SYR (J1650) SC SCH (09:34)
[2017-03-25] MEDS: VITAMIN D 1,000 INTERNATIONAL UNITS TABLET PO SCH ×2 (09:34→12:18)
[2017-03-25] MEDS: DOCUSATE SODIUM 100 MG CAP PO SCH ×2 (09:34→21:18)
[2017-03-25] MEDS: CYANOCOBALAMIN 500 MCG TAB PO SCH (12:18)
[2017-03-25 14:00] VITALS: BP 141/73
[2017-03-25] MEDS: FAMOTIDINE 20 MG TAB PO SCH (21:18)
[2017-03-26] MEDS: LEVOTHYROXINE 0.0375MG (37.5MCG) PER 1/2 TABLET PO SCH (05:50)
[2017-03-26 06:00] VITALS: BP 134/60
[2017-03-26] MEDS: CAPTOpril 6.25 MG PER 1/2 TABLET PO SCH ×2 (09:33→20:06)
[2017-03-26] MEDS: SENOKOT S TAB PO SCH ×2 (09:33→20:06)
[2017-03-26] MEDS: SPIRONOLACTONE 12.5MG PER 1/2 TABLET PO SCH (09:33)
[2017-03-26] MEDS: ASPIRIN 81 MG ENTERIC TAB PO SCH (09:33)
[2017-03-26] MEDS: VITAMIN D 1,000 INTERNATIONAL UNITS TABLET PO SCH ×2 (09:33→12:57)
[2017-03-26] MEDS: DOCUSATE SODIUM 100 MG CAP PO SCH ×2 (09:33→20:06)
[2017-03-26] MEDS: ENOXAPARIN 30 MG/0.3 ML SYR (J1650) SC SCH (09:34)
[2017-03-26] MEDS: CYANOCOBALAMIN 500 MCG TAB PO SCH (12:57)
[2017-03-26] MEDS: FAMOTIDINE 20 MG TAB PO SCH (20:06)
[2017-03-27 06:00] VITALS: BP 113/61
[2017-03-27] MEDS: LEVOTHYROXINE 0.0375MG (37.5MCG) PER 1/2 TABLET PO SCH (06:09)
[2017-03-27] MEDS: SPIRONOLACTONE 12.5MG PER 1/2 TABLET PO SCH (09:08)
[2017-03-27] MEDS: CAPTOpril 6.25 MG PER 1/2 TABLET PO SCH ×2 (09:08→20:21)
[2017-03-27] MEDS: ASPIRIN 81 MG ENTERIC TAB PO SCH (09:09)
[2017-03-27] MEDS: VITAMIN D 1,000 INTERNATIONAL UNITS TABLET PO SCH ×2 (09:09→12:00)
[2017-03-27] MEDS: DOCUSATE SODIUM 100 MG CAP PO SCH ×2 (09:09→20:20)
[2017-03-27] MEDS: ENOXAPARIN 30 MG/0.3 ML SYR (J1650) SC SCH (09:09)
[2017-03-27] MEDS: SENOKOT S TAB PO SCH ×2 (09:09→20:20)
[2017-03-27] MEDS: CYANOCOBALAMIN 500 MCG TAB PO SCH (12:00)
[2017-03-27 14:00] VITALS: BP 126/62
[2017-03-27] MEDS: FAMOTIDINE 20 MG TAB PO SCH (20:20)
[2017-03-28 06:00] VITALS: BP 122/59
[2017-03-28] MEDS: LEVOTHYROXINE 0.0375MG (37.5MCG) PER 1/2 TABLET PO SCH (06:05)
[2017-03-28 09:49] VITALS: BP 144/63
[2017-03-28] MEDS: VITAMIN D 1,000 INTERNATIONAL UNITS TABLET PO SCH ×2 (10:06→12:07)
[2017-03-28] MEDS: CAPTOpril 6.25 MG PER 1/2 TABLET PO SCH ×2 (10:06→20:56)
[2017-03-28] MEDS: ASPIRIN 81 MG ENTERIC TAB PO SCH (10:06)
[2017-03-28] MEDS: DOCUSATE SODIUM 100 MG CAP PO SCH ×2 (10:06→21:01)
[2017-03-28] MEDS: SPIRONOLACTONE 12.5MG PER 1/2 TABLET PO SCH (10:06)
[2017-03-28] MEDS: SENOKOT S TAB PO SCH ×2 (10:06→21:01)
[2017-03-28] MEDS: ENOXAPARIN 30 MG/0.3 ML SYR (J1650) SC SCH (10:07)
[2017-03-28] MEDS: CYANOCOBALAMIN 500 MCG TAB PO SCH (12:07)
[2017-03-28] MEDS: FAMOTIDINE 20 MG TAB PO SCH (21:01)
[2017-03-29] MEDS: LEVOTHYROXINE 0.0375MG (37.5MCG) PER 1/2 TABLET PO SCH (05:40)
[2017-03-29 06:00] VITALS: BP 114/66
[2017-03-29] MEDS: VITAMIN D 1,000 INTERNATIONAL UNITS TABLET PO SCH ×2 (09:28→12:49)
[2017-03-29] MEDS: SPIRONOLACTONE 12.5MG PER 1/2 TABLET PO SCH (09:28)
[2017-03-29] MEDS: SENOKOT S TAB PO SCH ×2 (09:28→20:07)
[2017-03-29] MEDS: DOCUSATE SODIUM 100 MG CAP PO SCH ×2 (09:28→20:07)
[2017-03-29] MEDS: ASPIRIN 81 MG ENTERIC TAB PO SCH (09:28)
[2017-03-29] MEDS: ENOXAPARIN 30 MG/0.3 ML SYR (J1650) SC SCH (09:29)
[2017-03-29] MEDS: CAPTOpril 6.25 MG PER 1/2 TABLET PO SCH ×2 (09:29→20:04)
[2017-03-29] MEDS: CYANOCOBALAMIN 500 MCG TAB PO SCH (12:49)
[2017-03-29 14:00] VITALS: BP 127/58
[2017-03-29] MEDS: FAMOTIDINE 20 MG TAB PO SCH (20:07)
[2017-03-30] MEDS: LEVOTHYROXINE 0.0375MG (37.5MCG) PER 1/2 TABLET PO SCH (05:41)
[2017-03-30 06:00] VITALS: BP 140/69
[2017-03-30] MEDS: ASPIRIN 81 MG ENTERIC TAB PO SCH (08:49)
[2017-03-30] MEDS: DOCUSATE SODIUM 100 MG CAP PO SCH ×2 (08:49→20:20)
[2017-03-30] MEDS: SENOKOT S TAB PO SCH ×2 (08:49→20:20)
[2017-03-30] MEDS: CAPTOpril 6.25 MG PER 1/2 TABLET PO SCH ×2 (08:49→20:21)
[2017-03-30] MEDS: VITAMIN D 1,000 INTERNATIONAL UNITS TABLET PO SCH ×2 (08:49→12:52)
[2017-03-30] MEDS: ENOXAPARIN 30 MG/0.3 ML SYR (J1650) SC SCH (08:50)
[2017-03-30] MEDS: SPIRONOLACTONE 12.5MG PER 1/2 TABLET PO SCH (08:52)
[2017-03-30] MEDS: CYANOCOBALAMIN 500 MCG TAB PO SCH (12:52)
--- NOTE | 2017-03-30 13:24 | IPNPDOC ---
Subjective Date Seen The patient was seen on 03/30/17. Subjective Chief Complaint/HPI The patient is a 81-year-old female admitted with a reason for visit of Altered Mental Status. Events since last encounter Feeling ok, too weak to go home, looking for someone to adopt her siamese cat "Baby", looking forward to the future Pulmonary: Denies: Dyspnea, Cough Cardiovascular: Denies: Chest Pain Objective Physical Examination General Exam: Positive: Alert, Cooperative, No Acute Distress, Other (elderely , frail, cachectic, lying comfortably in bed) Eye Exam: Negative: Sclera icteric Chest Exam: Positive: Other (symmetrical/rested) Extremity Exam: Positive: Edema (very frail extremities, 2-3+ b/l LE edema ) Skin Exam: Positive: Other skin issue Psych Exam: Positive: Oriented x 3 Assessment /Plan Problems (1) Non-compliance Status: Chronic Discussed With: Patient, Health Care Proxy Problem Text: Complicates medical care. (2) Altered mental status Status: Chronic Discussed With: Patient, Health Care Proxy Problem Specific Plan: Monitor Clinically, Repeat Labs Problem Text: Dr. Ott discussed with daughter Emma at length, who states that her mentation has been waxing and waning for the past several months. Workup unremarkable, likely chronic age related deterioration complicated with metabolic encephalopathy. Has improved in the 6 days leading up to 03/30/17 Patient has been considering her future living arrangement and has considered hospice house, but believes that she would like to go to [facility] (3) CHF (congestive heart failure) Status: Chronic Discussed With: Potline Monitor, Patient Problem Specific Plan: Consult Specialist, Monitor Clinically Problem Text: compensated patient states her lower extremity is chronic? previous echo showed systolic and diastolic failure, lv ef estimated at 10% discussed with cardiology - assistance appreciated - no role for diuretics or additional intervention regarding heart failure recommendations to resume home medications BNP elevated but improved from previous admission x-rays look unchanged from previous admission 1 month ago saturating well on room air (4) COPD (chronic obstructive pulmonary disease) Status: Chronic Discussed With: Patient Problem Specific Plan: Monitor Clinically Problem Text: weaned o2 88-92% - saturating well on room air respiratory regimen (5) Protein calorie malnutrition Status: Chronic Discussed With: Patient, Health Care Proxy (6) Cachexia Status: Chronic Discussed With: Patient, Health Care Proxy (7) Troponin level elevated Status: Resolved Response to Treatment: Improving Discussed With: Patient, Health Care Proxy Problem Specific Plan: Consult Specialist, Monitor Clinically, Repeat Labs Problem Text: Likely secondary to demand ischemia. (8) Pleural effusion Status: Chronic Problem Text: Acute / chronic - appears to be stable from January, but new compared with November (9) Hypothyroidism Status: Acute Problem Text: Synthroid dose increased (10) HTN (hypertension) Status: Chronic Problem Specific Plan: Monitor Clinically Problem Text: Pressures low in the hospital. Carvedilol discontinued secondary to bradycardia. Continue captopril with hold parameters. Plan/VTE VTE Prophylaxis Ordered?: Yes (Lovenox 30 mg subcutaneous daily) Plan/Urinary Catheter Urinary Catheter: D/C [place] Plan Diet: Continue Current (no added salt) Therapy: PT, OT Diagnostics: Obtain Cultures Anticipated Discharge: Home, Home With Services Advance Directives: DNR VS, I&O, 24H, Fishbone Vital Signs/I&O Vital Signs Date Time Temp Pulse Resp B/P (MAP) Pulse Ox O2 Delivery O2 Flow Rate FiO2 03/30/17 08:49 124/60 03/30/17 06:00 97.3 101 22 92 Room Air I&O- Last 24 Hours up to 6 AM 03/30/17 06:00 Intake Total 1230 ml Output Total 650 ml Balance 580 ml Laboratory Data Microbiology Microbiology 03/20/17 Urine Culture - Final, Complete MARGARITO QUINONEZ MD March 30, 2017 13:24
[2017-03-30 14:00] VITALS: BP 125/67
[2017-03-30] MEDS: FAMOTIDINE 20 MG TAB PO SCH (20:21)
[2017-03-30 22:00] VITALS: BP 115/64
[2017-03-31] MEDS: LEVOTHYROXINE 0.0375MG (37.5MCG) PER 1/2 TABLET PO SCH (05:46)
[2017-03-31 06:00] VITALS: BP 131/68
[2017-03-31] MEDS: ASPIRIN 81 MG ENTERIC TAB PO SCH (08:27)
[2017-03-31] MEDS: SENOKOT S TAB PO SCH ×2 (08:27→20:47)
[2017-03-31] MEDS: VITAMIN D 1,000 INTERNATIONAL UNITS TABLET PO SCH ×2 (08:27→12:25)
[2017-03-31] MEDS: DOCUSATE SODIUM 100 MG CAP PO SCH ×2 (08:27→20:47)
[2017-03-31] MEDS: SPIRONOLACTONE 12.5MG PER 1/2 TABLET PO SCH (08:28)
[2017-03-31] MEDS: CAPTOpril 6.25 MG PER 1/2 TABLET PO SCH ×2 (08:28→20:47)
[2017-03-31] MEDS: ENOXAPARIN 30 MG/0.3 ML SYR (J1650) SC SCH (08:29)
[2017-03-31] MEDS: CYANOCOBALAMIN 500 MCG TAB PO SCH (12:25)
[2017-03-31] MEDS: FAMOTIDINE 20 MG TAB PO SCH (20:47)
[2017-03-31 22:00] VITALS: BP 128/69
[2017-04-01] MEDS: LEVOTHYROXINE 0.0375MG (37.5MCG) PER 1/2 TABLET PO SCH (05:41)
[2017-04-01 06:00] VITALS: BP 133/88
[2017-04-01 07:55] LABS: MEAN CORPUSCULAR HEMOGLOBIN 34.3 pg (27.0-33.0); MEAN CORPUSCULAR HGB CONC 33.8 g/dl (32.0-36.5); MEAN CORPUSCULAR VOLUME 101.5 fl (80.0-96.0); RED CELL DISTRIBUTION WIDTH 15.4 % (11.5-14.5)
[2017-04-01 08:09] LABS: CALCIUM LEVEL 8.7 MG/DL (8.8-10.2); CREATININE FOR GFR 1.04 MG/DL (0.55-1.02); GLOMERULAR FILTRATION RATE 53.9 (>32)
[2017-04-01] MEDS: SPIRONOLACTONE 12.5MG PER 1/2 TABLET PO SCH (08:26)
[2017-04-01] MEDS: SENOKOT S TAB PO SCH ×2 (08:26→20:23)
[2017-04-01] MEDS: VITAMIN D 1,000 INTERNATIONAL UNITS TABLET PO SCH ×2 (08:26→12:08)
[2017-04-01] MEDS: ENOXAPARIN 30 MG/0.3 ML SYR (J1650) SC SCH (08:26)
[2017-04-01] MEDS: DOCUSATE SODIUM 100 MG CAP PO SCH ×2 (08:26→20:23)
[2017-04-01] MEDS: ASPIRIN 81 MG ENTERIC TAB PO SCH (08:26)
[2017-04-01] MEDS: CAPTOpril 6.25 MG PER 1/2 TABLET PO SCH ×2 (08:27→20:24)
[2017-04-01 08:44] LABS: POTASSIUM SERUM 5.6 MEQ/L (3.5-5.1)
[2017-04-01] MEDS ORDERED: SOD POLYSTYRENE SULFONATE SUSP 15 GM/60 ML UD PO ONE (09:15)
[2017-04-01] MEDS ORDERED: FUROSEMIDE 40 MG TAB PO ONE (09:15)
[2017-04-01] MEDS: CYANOCOBALAMIN 500 MCG TAB PO SCH (12:08)
[2017-04-01] MEDS: FAMOTIDINE 20 MG TAB PO SCH (20:24)
[2017-04-02] MEDS: LEVOTHYROXINE 0.0375MG (37.5MCG) PER 1/2 TABLET PO SCH (05:31)
[2017-04-02 06:15] VITALS: BP 113/60
[2017-04-02 06:37] LABS: CALCIUM LEVEL 8.5 MG/DL (8.8-10.2); CREATININE FOR GFR 1.19 MG/DL (0.55-1.02); GLOMERULAR FILTRATION RATE 46.1 (>32); POTASSIUM SERUM 4.5 MEQ/L (3.5-5.1)
[2017-04-02] MEDS: ENOXAPARIN 30 MG/0.3 ML SYR (J1650) SC SCH (08:41)
[2017-04-02] MEDS: ASPIRIN 81 MG ENTERIC TAB PO SCH (08:41)
[2017-04-02] MEDS: CAPTOpril 6.25 MG PER 1/2 TABLET PO SCH ×3 (08:41→20:35)
[2017-04-02] MEDS: VITAMIN D 1,000 INTERNATIONAL UNITS TABLET PO SCH ×2 (08:41→12:21)
[2017-04-02] MEDS: DOCUSATE SODIUM 100 MG CAP PO SCH ×2 (08:41→20:34)
[2017-04-02] MEDS: SENOKOT S TAB PO SCH ×2 (08:41→20:34)
[2017-04-02] MEDS: CYANOCOBALAMIN 500 MCG TAB PO SCH (12:22)
[2017-04-02] MEDS: FAMOTIDINE 20 MG TAB PO SCH (20:34)
[2017-04-02 20:35] VITALS: BP 122/66
[2017-04-03] MEDS: ACETAMINOPHEN TAB 650MG DOSE (2X325MG) PO PRN (00:24)
[2017-04-03] MEDS: LEVOTHYROXINE 0.0375MG (37.5MCG) PER 1/2 TABLET PO SCH (05:48)
[2017-04-03 06:05] VITALS: BP 116/63
[2017-04-03 07:42] LABS: CALCIUM LEVEL 8.5 MG/DL (8.8-10.2); CREATININE FOR GFR 1.17 MG/DL (0.55-1.02); POTASSIUM SERUM 4.2 MEQ/L (3.5-5.1)
[2017-04-03] MEDS: DOCUSATE SODIUM 100 MG CAP PO SCH ×2 (08:52→20:46)
[2017-04-03] MEDS: ASPIRIN 81 MG ENTERIC TAB PO SCH (08:52)
[2017-04-03] MEDS: VITAMIN D 1,000 INTERNATIONAL UNITS TABLET PO SCH ×2 (08:52→13:29)
[2017-04-03] MEDS: SENOKOT S TAB PO SCH ×2 (08:52→20:46)
[2017-04-03] MEDS: ENOXAPARIN 30 MG/0.3 ML SYR (J1650) SC SCH (08:53)
[2017-04-03] MEDS ORDERED: SPIRONOLACTONE 12.5MG PER 1/2 TABLET PO SCH (09:00)
[2017-04-03] MEDS: CYANOCOBALAMIN 500 MCG TAB PO SCH (13:29)
[2017-04-03] MEDS: FAMOTIDINE 20 MG TAB PO SCH (20:46)
[2017-04-04 05:35] VITALS: BP 111/59
[2017-04-04] MEDS: LEVOTHYROXINE 0.0375MG (37.5MCG) PER 1/2 TABLET PO SCH (05:39)
[2017-04-04 06:07] LABS: CALCIUM LEVEL 8.6 MG/DL (8.8-10.2); CREATININE FOR GFR 1.06 MG/DL (0.55-1.02); GLOMERULAR FILTRATION RATE 52.7 (>32); POTASSIUM SERUM 4.1 MEQ/L (3.5-5.1)
[2017-04-04 09:00] VITALS: BP 118/63
[2017-04-04] MEDS: DOCUSATE SODIUM 100 MG CAP PO SCH ×2 (09:33→20:23)
[2017-04-04] MEDS: SENOKOT S TAB PO SCH ×2 (09:33→20:23)
[2017-04-04] MEDS: VITAMIN D 1,000 INTERNATIONAL UNITS TABLET PO SCH ×2 (09:33→12:08)
[2017-04-04] MEDS: ASPIRIN 81 MG ENTERIC TAB PO SCH (09:33)
[2017-04-04] MEDS: ENOXAPARIN 30 MG/0.3 ML SYR (J1650) SC SCH (09:35)
[2017-04-04] MEDS: CYANOCOBALAMIN 500 MCG TAB PO SCH (12:08)
[2017-04-04] MEDS: FAMOTIDINE 20 MG TAB PO SCH (20:23)
[2017-04-04] MEDS: ACETAMINOPHEN TAB 650MG DOSE (2X325MG) PO PRN (21:23)
[2017-04-05] MEDS: LEVOTHYROXINE 0.0375MG (37.5MCG) PER 1/2 TABLET PO SCH (05:30)
[2017-04-05 06:00] VITALS: BP 129/60
[2017-04-05] MEDS: DOCUSATE SODIUM 100 MG CAP PO SCH ×2 (08:47→21:21)
[2017-04-05] MEDS: ASPIRIN 81 MG ENTERIC TAB PO SCH (08:47)
[2017-04-05] MEDS: SENOKOT S TAB PO SCH ×2 (08:47→21:21)
[2017-04-05] MEDS: VITAMIN D 1,000 INTERNATIONAL UNITS TABLET PO SCH ×2 (08:47→13:05)
[2017-04-05] MEDS: ENOXAPARIN 30 MG/0.3 ML SYR (J1650) SC SCH (08:47)
[2017-04-05] MEDS: CYANOCOBALAMIN 500 MCG TAB PO SCH (13:05)
[2017-04-05 15:30] VITALS: BP 114/65
[2017-04-05] MEDS: FAMOTIDINE 20 MG TAB PO SCH (21:21)
[2017-04-06 06:00] VITALS: BP 117/67
[2017-04-06] MEDS: LEVOTHYROXINE 0.0375MG (37.5MCG) PER 1/2 TABLET PO SCH (06:09)
[2017-04-06] MEDS: SENOKOT S TAB PO SCH (08:41)
[2017-04-06] MEDS: ASPIRIN 81 MG ENTERIC TAB PO SCH (08:41)
[2017-04-06] MEDS: VITAMIN D 1,000 INTERNATIONAL UNITS TABLET PO SCH ×2 (08:41→11:27)
[2017-04-06] MEDS: DOCUSATE SODIUM 100 MG CAP PO SCH (08:41)
[2017-04-06] MEDS: ENOXAPARIN 30 MG/0.3 ML SYR (J1650) SC SCH (08:41)
[2017-04-06] MEDS ORDERED: LEVO75TA4 PO (10:29)
[2017-04-06] MEDS: CYANOCOBALAMIN 500 MCG TAB PO SCH (11:27)
--- NOTE | 2017-04-06 13:41 | DS.PDOC ---
Discharge Summary General Date of Admission March 20, 2017 at 19:33 Date of Discharge 04/06/17 Discharge Summary PROCEDURES PERFORMED DURING STAY: None. ADMITTING DIAGNOSES: 1. . Acute decompensated diastolic and systolic congestive heart failure DISCHARGE DIAGNOSES: 1. .1. . Acute decompensated diastolic and systolic congestive heart failure COMPLICATIONS/CHIEF COMPLAINT: Altered Mental Status. HISTORY OF PRESENT ILLNESS: . 81-year-old female with a past medical history significant for diastolic and systolic congestive heart failure with a left ventricular ejection fraction of 10%, hypertension, chronic obstructive pulmonary disease, hypothyroidism, iron deficiency anemia, constipation, gastroesophageal reflux disease, nonischemic cardiomyopathy, vitamin D deficiency, and protein calorie malnutrition with cachexia presented to [facility]'s emergency Department for altered mental status. The patient's history for present illness was limited as the patient had an alteration in mental status as noted. However according to reports by her daughter the patient was brought to the ER after she was found more lethargic and not responsive to her daughter at home. EMS was subsequently called, and upon arrival the patient was noted to be back to her baseline mentation. However, she was brought to the ER given her extensive past medical history and the inability of the patients daughters to take care of her. In the ER, a CT scan of the chest was done and revealed large bilateral pleural effusions with bibasilar atelectasis. The patient was admitted to the hospitalist service for further evaluation and management. During hospitalization, the patient was treated with IV diuretics. The patient' s overall mentation and respiratory status significantly improved thereafter. The case was discussed with the patient's licensed appraiser who suggested that there was no role for diuretics or additional interventional treatment regarding the patient's end-stage heart failure. At this time, the patient has been off diuretic therapy and she has maintained a relatively comfortable volume status, although it does appear she has chronic lower extremity edema. The patient's serum creatinine did elevate to about 1.2 at one point over the last week. However, this was secondary to the patient having a decreased by mouth intake and remaining on the diuretic. I have since discontinue the diuretic, encouraged by mouth intake, and the patient has remained euvolemic and her serum creatinine has returned back to its baseline of around 1.0. However, the patient may require a diuretic moving forward as she does have severe underlying diastolic and systolic dysfunction heart disease. She does unfortunately have a very narrow therapeutic fluid balance window given her underlying heart disease. I did extensively discuss this with the patient and her daughters at the bedside about the patient's poor terminal gauger prognosis moving forward given her advanced heart failure, and the challenges faced with monitoring/treatment of this. They have verbalized understanding of this, and all questions were answered to their satisfaction. The patient has been accepted to [facility] for placement at this time. DISCHARGE MEDICATIONS: Please see below. ALLERGIES: Please see below. PHYSICAL EXAMINATION ON DISCHARGE: VITAL SIGNS: Please see below. General Exam: Positive: Alert, Cooperative, No Acute Distress, Other (elderly, frail, cachectic, lying comfortably in bed) Eye Exam: Negative: Sclera icteric Chest Exam: Normal Rate, Normal S1, S2 Respiratory: Diminished Abdomen: Soft, Non-tender, Non-distended Extremity Exam: Positive: 2-3+ bilateral LE edema Skin Exam: Positive: Other skin issue Psych Exam: Positive: Oriented x 3 LABORATORY DATA: Please see below. IMAGING: Clinical: Pleural effusion. Comparison: 02/18/2017. Findings: Large bilateral partially loculated pleural effusions are identified (right greater than left) with associated partial collapse to the lower lobes. Associated cardiomegaly is appreciated along with atherosclerotic changes to the thoracic aorta and coronary arteries. No pericardial effusion identified. Surrounding musculoskeletal structures are intact. Impression: Large bilateral partially loculated pleural effusions with associated partial collapse to the lower lobes (right greater than left). Cardiomegaly and atherosclerotic changes to the thoracic aorta and coronary arteries. PROGNOSIS: Poor penitentiary prognosis ACTIVITY: As tolerated. DIET: . 2 g low sodium, fluid restricted diet DISCHARGE PLAN: DISPOSITION: 01 Home, Self-Care. DISCHARGE INSTRUCTIONS: 1. . Follow-up with a PCP within 1 week 2. . The patient may need diuretic therapy moving forward if she becomes hypervolemic. Previously on Lasix 20mg, and Spironolactone 12.5 mg daily-- However this has been held as the patient has been dehydrated here due to poor PO Intake DISCHARGE CONDITION: Medically Stable at this time, however poor terminal gauger prognosis TIME SPENT ON DISCHARGE: Greater than 30 minutes. Vital Signs/I&Os Vital Signs Date Time Temp Pulse Resp B/P (MAP) Pulse Ox O2 Delivery O2 Flow Rate FiO2 04/06/17 09:00 Room Air 04/06/17 06:00 97.0 96 17 117/67 (84) 93 03/31/17 07:01 1.0 I&O- Last 24 Hours up to 6 AM 04/06/17 06:00 Intake Total 670 ml Output Total 200 ml Balance 470 ml Discharge Medications Scheduled (Ferate) 27 Mg Tab, 54 MG PO DAILY, (Reported) (Tylenol) 325 Mg Cap, 325 MG PO TID, (Reported) (Arnuity Ellipta) 100 Mcg/Act Inh, 100 MCG INH DAILY, (Reported) Aspirin (Aspirin) 81 Mg Tab, 81 MG PO DAILY, (Reported) Captopril (Captopril) 12.5 Mg Tab, 6.25 MG PO BID, (Reported) Carvedilol (Carvedilol) 3.125 Mg Tab, 3.125 MG PO BID, (Reported) Cholecalciferol (Vitamin D3) 1,000 Unit Cap, 1,000 UNIT PO BID, (Reported) AM AND NOON Cyanocobalamin (Vitamin B12) 1,000 Mcg Tab, 500 MCG PO DAILY, (Reported) TAKES AT NOON Docusate Sodium (Colace) 100 Mg Cap, 200 MG PO BID, (Reported) Levothyroxine Sodium (Synthroid) 75 Mcg Tab, 0.0375 MG PO DAILY@06 Ranitidine HCl (Ranitidine HCl) 150 Mg Tab, 1 TAB PO QHS, (Reported) Scheduled PRN Albuterol Sulfate (Albuterol Sulfate) 2.5 Mg/3 Ml Nebu, 2.5 MG INH QID PRN for SHORTNESS OF BREATH, (Reported) Allergies Coded Allergies: No Known Allergies (Verified , 06/30/04) DEANDRE LOZA MD Apr 06, 2017 13:41
== END 2017-04-06 11:35 | disposition home or self-care (01) | DRG 291 ==
LOC: EDBD 16:40 → M ED 18:14 → M ED INP 19:33 → M PCU 21:11 → M MSPAV 03-21 21:46
PROVIDERS: ADMIT General Practice; ATTEND Internal Medicine
DX: I50.43 Acute on chronic combined systolic (congestive) and diastolic (congestive) heart failure (principal); G93.41 Metabolic encephalopathy; E46 Unspecified protein-calorie malnutrition; R64 Cachexia; J90 Pleural effusion, not elsewhere classified; R41.81 Age-related cognitive decline; Z66 Do not resuscitate; I11.0 Hypertensive heart disease with heart failure; J44.9 Chronic obstructive pulmonary disease, unspecified; R79.89 Other specified abnormal findings of blood chemistry; E03.9 Hypothyroidism, unspecified; D50.9 Iron deficiency anemia, unspecified; K21.9 Gastro-esophageal reflux disease without esophagitis; E55.9 Vitamin D deficiency, unspecified; I25.5 Ischemic cardiomyopathy; Z79.82 Long term (current) use of aspirin; Z79.899 Other long term (current) drug therapy; Z90.3 Acquired absence of stomach [part of]; K59.00 Constipation, unspecified; Z91.19 Patient's noncompliance with other medical treatment and regimen

== ENCOUNTER → 2017-04-06 | Outpatient (REF) ==
[~2017-04-06] MED LIST changes: +ACET-654 PO; +ALBU83IN INH; +BISA10SU4 PR; +ENEMENE3 PR; +ENSULIQ64 PO; +LEVO25TA5 PO; +LEVO75TA4 PO; +MILKSUS PO; +MULT1TAB10 PO; +REME15TA PO; +SYNT75TA PO; +TYLE325C PO; +VITA-121 PO; +VITA100041 PO
--- NOTE | 2017-04-07 02:11 | REP ---
Clinical: Pain and swelling. Technique: AP, lateral, bilateral oblique views of the left ankle. Findings: Age-related osteopenia and degenerative changes are appreciated. Diffuse swelling noted. No definite acute fracture or dislocation identified. Impression: No obvious acute fracture or dislocation. Osteopenia. Swelling. Signed by Narendra Franco MD 04/07/2017 02:02 A
== END ==
LOC: SKLAB5 13:16
PROVIDERS: ATTEND Internal Medicine
DX: M25.572 Pain in left ankle and joints of left foot (principal); M25.472 Effusion, left ankle

== ENCOUNTER 2017-04-12 15:37 | Inpatient (IN) | payer MEDICARE, MEDICAID ==
[~2017-04-12] VITALS: Ht 165.1 cm; Wt 27.2 kg
[~2017-04-12 15:37] MED LIST changes: -ACET-654 PO; -BISA10SU4 PR; -ENEMENE3 PR; -ENSULIQ64 PO; -MILKSUS PO; -MULT1TAB10 PO; -REME15TA PO; -SYNT75TA PO; -VITA-121 PO
[2017-04-12] MEDS ORDERED: ENSULIQ64 PO (16:01)
[2017-04-12] MEDS ORDERED: REME15TA PO (16:01)
[2017-04-12] MEDS ORDERED: LASI20TA PO (16:01)
[2017-04-12] MEDS ORDERED: MULT1TAB10 PO (16:01)
[2017-04-12] MEDS ORDERED: ENEMENE3 PR (16:43)
[2017-04-12] MEDS ORDERED: MILKSUS PO (16:43)
[2017-04-12] MEDS ORDERED: ACET-654 PO ×2 (16:43→16:46)
[2017-04-12] MEDS ORDERED: BISA10SU4 PR (16:43)
[2017-04-12] MEDS ORDERED: SYNT75TA PO (16:46)
[2017-04-12] MEDS ORDERED: VITA-121 PO (16:46)
--- NOTE | 2017-04-12 17:01 | REP ---
Portable chest, 04:47 p.m., 04/12/2017, single AP view the patient semi upright: Comparison is 03/20/2070. There are diffuse bilateral infiltrates and bilateral pleural effusions, significantly worse than the comparison study. Cardiac size appears normal. Signed by Bart Zarate MD 04/12/2017 04:52 P
[2017-04-12 17:04] LABS: ABG BASE EXCESS -3.9 (-2.0-2.0); ABG HCO3 25.3 MEQ/L (22.0-26.0); ABG PARTIAL PRESSURE O2 69.4 mmHg (75.0-100.0); ABG STANDARD HCO3 21.1 MEQ/L (22.0-26.0); ABG TOTAL CO2 27.3 MEQ/L (23.0-31.0)
[2017-04-12 17:05] LABS: ABG PARTIAL PRESSURE CO2 66.5 mmHg (35.0-45.0); ABG pH (ARTERIAL) 7.198 UNITS (7.350-7.450)
[2017-04-12 17:37] LABS: ALBUMIN 2.1 GM/DL (3.2-5.2); ALBUMIN/GLOBULIN RATIO 0.81 (1.00-1.93); ALKALINE PHOSPHATASE 94 U/L (45-117); ALT/SGPT 37 U/L (12-78); ANION GAP 10 MEQ/L (8-16); AST/SGOT 36 U/L (15-37); BILIRUBIN,DIRECT < 0.1 MG/DL (0.0-0.2); BLOOD UREA NITROGEN 79 MG/DL (7-18); CALCIUM LEVEL 8.2 MG/DL (8.8-10.2); CARBON DIOXIDE LEVEL 27 MEQ/L (21-32); CHLORIDE LEVEL 95 MEQ/L (98-107); CREATININE FOR GFR 2.28 MG/DL (0.55-1.02); GLOMERULAR FILTRATION RATE 21.8 (>32); GLUCOSE, FASTING 110 MG/DL (83-110); SODIUM LEVEL 132 MEQ/L (136-145); TOTAL PROTEIN 4.7 GM/DL (6.4-8.2)
[2017-04-12 17:38] LABS: MEAN CORPUSCULAR HEMOGLOBIN 35.3 pg (27.0-33.0); MEAN CORPUSCULAR HGB CONC 33.6 g/dl (32.0-36.5); MEAN CORPUSCULAR VOLUME 105.3 fl (80.0-96.0); PLATELET COUNT, AUTOMATED 346 k/mm3 (150-450); RED CELL DISTRIBUTION WIDTH 17.4 % (11.5-14.5); WHITE BLOOD COUNT 5.6 K/mm3 (4.0-10.0)
[2017-04-12 17:42] LABS: BILIRUBIN,TOTAL 0.2 MG/DL (0.2-1.0)
[2017-04-12 17:44] LABS: POTASSIUM SERUM 5.3 MEQ/L (3.5-5.1)
[2017-04-12 17:52] LABS: BANDS 1 % (< 11); NUCLEATED RED BLOOD CELL 1 % (0-0)
[2017-04-12 17:53] LABS: ANISOCYTOSIS 1+; POLYCHROMASIA 1+
--- NOTE | 2017-04-12 19:36 | ECGEPIP ---
Stationary ECG Study [facility] - ED Test Date: 2017-04-12 Pat Name: STEPHENIE FLORES Department: Room: - Gender: F Transcriptionist: ct : 1935 Requested By: OMEGA Mckeon Order Number: [id number] Reading MD: Lenka Garrison Measurements Intervals [place] Rate: 75 P: 94 CO: 186 QRS: 101 QRSD: 149 T: -65 QT: 427 QTc: 480 Interpretive Statements SINUS RHYTHM POSSIBLE LEFT ATRIAL ENLARGEMENT MARKED RIGHT AXIS DEVIATION RIGHT BUNDLE BRANCH BLOCK MODERATE T-WAVE ABNORMALITY, CONSIDER ISCHEMIA INCREASED RATE 03/21/17 Electronically Signed On 04-12-2017 19:35:52 EDT by Lenka Garrison
[2017-04-12] MEDS ORDERED: ONDANSETRON 4MG/2ML VIAL (J2405) IV PRN (19:45)
[2017-04-12] MEDS ORDERED: LORazepam 2 MG/ML VIAL (J2060) IV PRN (19:45)
[2017-04-12] MEDS ORDERED: SCOPOLAMINE 1.5 MG TRANSDERMAL TD PRN (19:45)
[2017-04-12] MEDS ORDERED: MORPHINE 2 MG/ML 1ML SYRINGE IV PRN (19:45)
[2017-04-12 20:00] VITALS: BP 96/55
--- NOTE | 2017-04-12 20:01 | HPEPDOC ---
Medical History and Physical Date of Admission Apr 12, 2017 at 19:33 History and Physical HISTORY AND PHYSICAL Date of admission: 04/12/2017 PCP: previously Dr. Venessa Ryees, but the patient was admitted to [facility] as a permanent resident last week, so now Dr. Almita Malone Chief complaint: Very lethargic, not eating, hardly able to move HPI: 81-year-old female with chronic systolic and diastolic heart failure ( ejection fraction 10%, previously declined AICD), nonischemic dilated cardiomyopathy, mitral valve prolapse with mitral regurg (3+ moderately severe mitral regurg, not a candidate for mitral valve repair or replacement), hypertension, COPD, protein calorie malnutrition, pulmonary hypertension, chronic kidney disease stage III, hypothyroidism, GERD who presented with decreased oral intake, and lethargy. This patient was recently discharged from the hospital on April 06 after a 2 week stay for acute on chronic heart failure. At the time, she was discharged to [facility] as a permanent resident. The daughter accompanies her today, and states that since discharge, she has continued to decline, and has hardly eaten anything. She states that she has become increasingly more lethargic and less responsive. She also notes that she is swollen up to her chest. The patient herself is unable to participate in this interview. To verbal stimuli, she will turn her head towards me, and she will attempt to open her eyes on command. Past medical history: chronic systolic and diastolic heart failure (ejection fraction 10%, previously declined AICD), nonischemic dilated cardiomyopathy, mitral valve prolapse with mitral regurg (3+ moderately severe mitral regurg, not a candidate for mitral valve repair or replacement), hypertension, COPD, protein calorie malnutrition, pulmonary hypertension, chronic kidney disease stage III, hypothyroidism, GERD Past surgical history: Including but not limited to Left femoral neck ORIF, partial gastrectomy Social history: The patient was recently living with her daughter, but it became too much for her daughter to care for her, so when she was discharged on April 06, she became a permanent resident [facility]. There is no report of any alcohol or tobacco use. Allergies: No known drug allergies Review of systems: Unable to complete secondary to the patient's lethargy Home meds: See below Physical exam: Vital signs: Vital Sign - Last 24 Hours 04/12/17 04/12/17 04/12/17 04/12/17 15:50 15:52 15:53 16:05 Temp 97.4 Pulse 70 70 Resp 20 B/P (MAP) 80/47 (58) 80/47 (58) 80/48 (59) Pulse Ox 84 84 O2 Delivery Nasal Cannula 04/12/17 04/12/17 04/12/17 04/12/17 16:07 16:13 16:13 16:15 Pulse 70 B/P (MAP) 79/42 (54) Pulse Ox 83 O2 Delivery Nasal Cannula O2 Flow Rate 4.0 04/12/17 04/12/17 04/12/17 04/12/17 16:20 16:22 16:28 16:35 Pulse 72 B/P (MAP) 81/48 (59) 87/54 (65) 94/51 (65) Pulse Ox 83 04/12/17 04/12/17 04/12/17 04/12/17 16:37 16:50 16:52 17:05 Pulse 70 72 B/P (MAP) 94/55 (68) 92/53 (66) Pulse Ox 88 88 04/12/17 04/12/17 04/12/17 04/12/17 17:07 17:20 17:22 17:35 Pulse 72 76 B/P (MAP) 96/52 (67) 98/53 (68) Pulse Ox 88 91 04/12/17 04/12/17 04/12/17 04/12/17 17:37 17:50 17:52 18:05 Pulse 72 76 B/P (MAP) 95/50 (65) 91/52 (65) Pulse Ox 95 92 04/12/17 04/12/17 04/12/17 04/12/17 18:07 18:20 18:22 18:37 Pulse 78 76 76 B/P (MAP) 91/55 (67) Pulse Ox 93 93 93 04/12/17 04/12/17 04/12/17 04/12/17 18:50 18:52 19:05 19:07 Pulse 76 74 B/P (MAP) 90/50 (63) 93/51 (65) Pulse Ox 94 95 04/12/17 19:20 B/P (MAP) 94/54 (67) Gen.: Cachectic, tachypneic, laying in bed mostly unresponsive, but will turn head towards my voice and attempts to follow commands Eyes: Mostly closed, the patient attempts to open them at my verbal command ENT: Dry mucous membranes Cardiovascular: RRR, no murmurs rubs or gallops Lungs: Rhonchi in all lung moore, tachypneic, using accessory muscles Abdomen: Soft, NT/ND, normal BS Musculoskeletal: Extreme muscle wasting globally Extremities: 3+ pitting edema up to the chest Neuro: Lethargic, barely responsive in bed, does turn her head towards me at my verbal cues, unable to speak Labs and radiology: See below Sodium 132, potassium 5.3, BUN 79, creatinine 2.28 PH 7.19, PCO2 66, PO2 69 Troponin 0.47, BNP greater than 5000 Chest x-ray shows diffuse bilateral infiltrates and bilateral pleural effusions that are noted to be significantly worse than the study 2 weeks ago UA shows 3+ blood, 3+ leuk esterase, too numerous to count WBCs, and 3+ bacteria Assessment and plan: 81-year-old female with chronic systolic and diastolic heart failure (ejection fraction 10%, previously declined AICD), nonischemic dilated cardiomyopathy, mitral valve prolapse with mitral regurg (3+ moderately severe mitral regurg, not a candidate for mitral valve repair or replacement), hypertension, COPD, protein calorie malnutrition, pulmonary hypertension, chronic kidney disease stage III, hypothyroidism, GERD who presented with decreased oral intake, and lethargy. After extensive discussion at the bedside with the daughter, we have decided that the patient will be admitted for comfort care. I offered for the patient to return to [facility] for comfort care, but the daughter tells me that she does not believe the patient was happy there, and she prefers for the patient to be admitted to the hospital for comfort measures. The patient is too lethargic and acidotic to help make decisions about her health care. She does have a MOLST form that indicates she would want to be DNR/DNI. I discussed the extremely poor prognosis with the daughter, Brittany Wells. Brittany tells me that the patient does not have spouse, but Brittany is one of several daughters. After our discussion at the bedside, Brittany proceeded to call her sisters to discuss the situation with them. Brittany then told me that they have decided that the patient would want to be comfort measures only in this situation. At this time, the patient is suffering an acute on chronic exacerbation of her end-stage systolic and diastolic heart failure, which has led to hypercarbic respiratory failure, as well as acute on chronic kidney disease stage III. She also appears to have a UTI. Brittany and I, as well as the patient's ER nurse Chio, have completed and updated the MOLST form which indicates Brittany's belief that the patient would desire to be comfort measures only at this time. I have expressed my concern to Brittany that the patient does not have much time left to live and that I would recommend that any family that would like to see her come to see her now. Additionally, Brittany has requested that a principal military analyst come see her mother, and I have put in an order for principal military analyst services. Dispo: admit as inpatient to the service of Dr. Ram CODE STATUS: Comfort care only Vital Signs Vital Signs Date Time Temp Pulse Resp B/P (MAP) Pulse Ox O2 Delivery O2 Flow Rate FiO2 04/12/17 19:20 94/54 (67) 04/12/17 19:07 74 95 04/12/17 16:13 Nasal Cannula 4.0 04/12/17 15:53 97.4 20 Laboratory Data Labs 24H Laboratory Tests 2 04/12/17 16:50: Neutrophils 90H, Band Neutrophils 1, Lymphocytes (Manual) 5L, Monocytes (Manual ) 4, Nucleated Red Blood Cells 1H, Platelet Estimate NORMAL, Polychromasia 1+, Anisocytosis 1+, Macrocytosis 1+, Blood Gas Bicarbonate Standard 21.1L, Arterial Blood pH 7.198*L, Arterial Blood Partial Pressure CO2 66.5*H, Arterial Blood Partial Pressure O2 69.4L, Arterial Blood Total CO2 27.3, Arterial Blood HCO3 25.3, Arterial Blood Base Excess -3.9L, Arterial Blood Oxygen Saturation 90.4L, Anion Gap 10, Glomerular Filtration Rate 21.8L, Lactic Acid Level 1.2, Calcium Level 8.2L, Aspartate Amino Transf (AST/SGOT) 36, Alanine Aminotransferase (ALT/SGPT) 37, Alkaline Phosphatase 94, Total Bilirubin 0.2, Direct Bilirubin < 0.1, Ammonia 51H, Total Creatine Kinase 76, Creatine Kinase MB 3.1, Creatine Kinase MB Relative Index 4.07H, Troponin I 0.47H, B-Type Natriuretic Peptide > 5000H, Total Protein 4.7L, Albumin 2.1L, Albumin/Globulin Ratio 0.81L, Thyroid Stimulating Hormone (TSH) 80.000H 04/12/17 17:02: Urine Appearance CLOUDYH, Urine Color MARIO, Urine pH 5.0, Urine Specific [place] 1.016, Urine Protein 1+H, Urine Glucose (UA) NEGATIVE, Urine Ketones NEGATIVE, Urine Urobilinogen 0.2, Urine Bilirubin NEGATIVE, Urine Leukocyte Esterase 3+H, Urine Blood 3+H, Urine Nitrite NEGATIVE, Urine WBC (Auto) TNTCH, Urine RBC (Auto) 63H, Urine Hyaline Casts (Auto) 0, Urine Bacteria (Auto) 3+H, Urine Squamous Epithelial Cells 0, Urine Transitional Epithelial Cells 2, Urine Sperm (Auto) CBC/BMP Laboratory Tests 04/12/17 16:50 Red Blood Count 3.50 L, Mean Corpuscular Volume 105.3 H, Mean Corpuscular Hemoglobin 35.3 H, Mean Corpuscular Hemoglobin Concent 33.6, Red Cell Distribution Width 17.4 H Microbiology Microbiology 04/12/17 Blood Culture, Received Pending 04/12/17 Blood Culture, Received Pending 04/12/17 Urine Culture, Received Pending Home Medications Scheduled (Ferate) 27 Mg Tab, 54 MG PO DAILY (Arnuity Ellipta) 100 Mcg/Act Inh, 100 MCG INH DAILY (Ensure Enlive) 1 Liq Liq, 240 ML PO BID Acetaminophen (Acetaminophen) 325 Mg Tab, 325 MG PO TID Aspirin (Aspirin) 81 Mg Tab, 81 MG PO DAILY Carvedilol (Carvedilol) 3.125 Mg Tab, 3.125 MG PO DAILY Cholecalciferol (Vitamin D-3) 1,000 Unit Tab, 1,000 UNIT PO DAILY Cyanocobalamin (Vitamin B12) 1,000 Mcg Tab, 500 MCG PO DAILY Docusate Sodium (Colace) 100 Mg Cap, 200 MG PO BID Furosemide (Lasix) 20 Mg Tab, 20 MG PO DAILY Levothyroxine Sodium (Synthroid) 75 Mcg Tab, 75 MCG PO QAM Mirtazapine (Remeron) 15 Mg Tab, 7.5 MG PO QHS Multivitamins (Multivitamin Adults) 1 Tab Tab, 1 TAB PO DAILY Ranitidine HCl (Ranitidine HCl) 150 Mg Tab, 1 TAB PO QHS Scheduled PRN Acetaminophen (Acetaminophen) 325 Mg Tab, 650 MG PO Q4H PRN for PAIN Albuterol Sulfate (Albuterol Sulfate) 2.5 Mg/3 Ml Nebu, 2.5 MG INH QID PRN for SHORTNESS OF BREATH Bisacodyl (Bisacodyl) 10 Mg Sup, 10 MG [place] DAILY PRN for CONSTIPATION Milk Of Magnesia (Milk of Magnesia) 1,200 Mg/15 Ml Mihaela, 30 ML PO DAILY PRN for CONSTIPATION Sodium Phosphate/Biphosphate (Enema 7-19 gm/118Ml) 1 Viola Viola, 1 VIOL[place] DAILY PRN for CONSTIPATION Allergies Coded Allergies: No Known Allergies (Verified , 06/30/04) GERARDO CORONA Apr 12, 2017 20:01
--- NOTE | 2017-04-13 12:36 | DS.PDOC ---
Discharge Summary General Date of Admission Apr 12, 2017 at 19:33 Date of Discharge 04/12/17 at 23:40 Discharge Summary SUMMARY DATE OF ADMISSION: 04/12/2017 DATE OF EXPIRATION: 04/12/2017 at 2340 PRIMARY CARE PHYSICIAN: Previously Dr. Venessa Reyes, but the patient was admitted to [facility] as a permanent resident last week, so now Dr. Almita Malone DISCHARGE DIAGNOS(E)S: Acute hypercarbic respiratory acidosis and Acute on chronic kidney disease stage III secondary to Acute on chronic end-stage systolic and diastolic heart failure (ejection fraction of 10%, previously declined AICD) complicated by Urinary tract infection HPI & HOSPITAL COURSE: 81-year-old female with chronic systolic and diastolic heart failure (ejection fraction 10%, previously declined AICD), nonischemic dilated cardiomyopathy, mitral valve prolapse with mitral regurg (3+ moderately severe mitral regurg, not a candidate for mitral valve repair or replacement), hypertension, COPD, protein calorie malnutrition, pulmonary hypertension, chronic kidney disease stage III, hypothyroidism, GERD who presented with decreased oral intake, and lethargy. After extensive discussion at the bedside with the daughter in the ED , we decided that the patient would be admitted for comfort care. I offered for the patient to return to [facility] for comfort care, but the daughter told me that she did not believe the patient was happy there, and she prefered for the patient to be admitted to the hospital for comfort measures. The patient was too lethargic and acidotic to help make decisions about her health care. She did have a MOLST form that indicated she would want to be DNR/DNI. I discussed the extremely poor prognosis with the daughter, Brittany Wells. Brittany told me that the patient did not have a spouse, but Brittany was one of several daughters. After our discussion at the bedside, Brittany proceeded to call her sisters to discuss the situation with them. Brittany then told me that they had decided that the patient would want to be comfort measures only in this situation. At that time, the patient was suffering an acute on chronic exacerbation of her end-stage systolic and diastolic heart failure, which had led to hypercarbic respiratory acidosis, as well as acute on chronic kidney disease stage III. She also appeared to have a UTI. Brittany and I, as well as the patient's ER nurse Chio, completed and updated the MOLST form which indicated Brittany's belief that the patient would desire to be comfort measures only at that time. I expressed my concern to Brittany that the patient did not have much time left to live and that I recommended that any family that would like to see her come to see her now. Additionally, Brittany requested that a box truck owner operator come see her mother, and I put in an order for box truck owner operator services. The patient was subsequently brought up to the medical surgical floor, and was found by the nurses at 2340. The physician control valve technician at that time, Dr. Goode, was notified , and the nursing note states that they notified the next of kin as well. DISPOSITION: on 04/12/2017 at 2340 DISCHARGE INSTRUCTIONS: Please send a copy of this summary to her PCP Vital Signs/I&Os Vital Signs Date Time Temp Pulse Resp B/P (MAP) Pulse Ox O2 Delivery O2 Flow Rate FiO2 04/12/17 20:16 Nasal Cannula 6.0 04/12/17 20:00 96.5 73 28 96/55 (69) 95 I&O- Last 24 Hours up to 6 AM 04/13/17 05:59 Intake Total 0 ml Balance 0 ml Laboratory Data Labs 24H Laboratory Tests 2 04/12/17 16:50: Neutrophils 90H, Band Neutrophils 1, Lymphocytes (Manual) 5L, Monocytes (Manual ) 4, Nucleated Red Blood Cells 1H, Platelet Estimate NORMAL, Polychromasia 1+, Anisocytosis 1+, Macrocytosis 1+, Blood Gas Bicarbonate Standard 21.1L, Arterial Blood pH 7.198*L, Arterial Blood Partial Pressure CO2 66.5*H, Arterial Blood Partial Pressure O2 69.4L, Arterial Blood Total CO2 27.3, Arterial Blood HCO3 25.3, Arterial Blood Base Excess -3.9L, Arterial Blood Oxygen Saturation 90.4L, Anion Gap 10, Glomerular Filtration Rate 21.8L, Lactic Acid Level 1.2, Calcium Level 8.2L, Aspartate Amino Transf (AST/SGOT) 36, Alanine Aminotransferase (ALT/SGPT) 37, Alkaline Phosphatase 94, Total Bilirubin 0.2, Direct Bilirubin < 0.1, Ammonia 51H, Total Creatine Kinase 76, Creatine Kinase MB 3.1, Creatine Kinase MB Relative Index 4.07H, Troponin I 0.47H, B-Type Natriuretic Peptide > 5000H, Total Protein 4.7L, Albumin 2.1L, Albumin/Globulin Ratio 0.81L, Thyroid Stimulating Hormone (TSH) 80.000H 04/12/17 17:02: Urine Appearance CLOUDYH, Urine Color MARIO, Urine pH 5.0, Urine Specific [place]olia 1.016, Urine Protein 1+H, Urine Glucose (UA) NEGATIVE, Urine Ketones NEGATIVE, Urine Urobilinogen 0.2, Urine Bilirubin NEGATIVE, Urine Leukocyte Esterase 3+H, Urine Blood 3+H, Urine Nitrite NEGATIVE, Urine WBC (Auto) TNTCH, Urine RBC (Auto) 63H, Urine Hyaline Casts (Auto) 0, Urine Bacteria (Auto) 3+H, Urine Squamous Epithelial Cells 0, Urine Transitional Epithelial Cells 2, Urine Sperm (Auto) CBC/BMP Laboratory Tests 04/12/17 16:50 Red Blood Count 3.50 L, Mean Corpuscular Volume 105.3 H, Mean Corpuscular Hemoglobin 35.3 H, Mean Corpuscular Hemoglobin Concent 33.6, Red Cell Distribution Width 17.4 H Microbiology Microbiology 04/12/17 Blood Culture, Received Pending 04/12/17 Blood Culture, Received Pending 04/12/17 Urine Culture, Received Pending Discharge Medications Scheduled (Ferate) 27 Mg Tab, 54 MG PO DAILY, (Reported) (Arnuity Ellipta) 100 Mcg/Act Inh, 100 MCG INH DAILY, (Reported) (Ensure Enlive) 1 Liq Liq, 240 ML PO BID, (Reported) Acetaminophen (Acetaminophen) 325 Mg Tab, 325 MG PO TID, (Reported) Aspirin (Aspirin) 81 Mg Tab, 81 MG PO DAILY, (Reported) Carvedilol (Carvedilol) 3.125 Mg Tab, 3.125 MG PO DAILY, (Reported) Cholecalciferol (Vitamin D-3) 1,000 Unit Tab, 1,000 UNIT PO DAILY, (Reported) Cyanocobalamin (Vitamin B12) 1,000 Mcg Tab, 500 MCG PO DAILY, (Reported) Docusate Sodium (Colace) 100 Mg Cap, 200 MG PO BID, (Reported) Furosemide (Lasix) 20 Mg Tab, 20 MG PO DAILY, (Reported) Levothyroxine Sodium (Synthroid) 75 Mcg Tab, 75 MCG PO QAM, (Reported) Mirtazapine (Remeron) 15 Mg Tab, 7.5 MG PO QHS, (Reported) Multivitamins (Multivitamin Adults) 1 Tab Tab, 1 TAB PO DAILY, (Reported) Ranitidine HCl (Ranitidine HCl) 150 Mg Tab, 1 TAB PO QHS, (Reported) Scheduled PRN Acetaminophen (Acetaminophen) 325 Mg Tab, 650 MG PO Q4H PRN for PAIN, (Reported) Albuterol Sulfate (Albuterol Sulfate) 2.5 Mg/3 Ml Nebu, 2.5 MG INH QID PRN for SHORTNESS OF BREATH, (Reported) Bisacodyl (Bisacodyl) 10 Mg Sup, 10 MG OK DAILY PRN for CONSTIPATION, (Reported) Milk Of Magnesia (Milk of Magnesia) 1,200 Mg/15 Ml Mihaela, 30 ML PO DAILY PRN for CONSTIPATION, (Reported) Sodium Phosphate/Biphosphate (Enema 7-19 gm/118Ml) 1 Viola Viola, 1 VIOLA OK DAILY PRN for CONSTIPATION, (Reported) Allergies Coded Allergies: No Known Allergies (Verified , 06/30/04) GERARDO CORONA Apr 13, 2017 12:36
== END 2017-04-12 23:40 | disposition expired | DRG 291 ==
LOC: EDBD 15:37 → M ED 16:24 → M ED INP 19:33 → M MSPAV 20:16
PROVIDERS: ADMIT Hospitalist; ATTEND Hospitalist
DX: I13.0 Hypertensive heart and chronic kidney disease with heart failure and stage 1 through stage 4 chronic kidney disease, or unspecified chronic kidney disease (principal); I50.43 Acute on chronic combined systolic (congestive) and diastolic (congestive) heart failure; J96.02 Acute respiratory failure with hypercapnia; E43 Unspecified severe protein-calorie malnutrition; G93.41 Metabolic encephalopathy; E46 Unspecified protein-calorie malnutrition; E87.2 Acidosis; N39.0 Urinary tract infection, site not specified; I42.0 Dilated cardiomyopathy; I34.1 Nonrheumatic mitral (valve) prolapse; I34.0 Nonrheumatic mitral (valve) insufficiency; J44.9 Chronic obstructive pulmonary disease, unspecified; I27.2 Other secondary pulmonary hypertension; N18.3 Chronic kidney disease, stage 3 (moderate); E03.9 Hypothyroidism, unspecified; K21.9 Gastro-esophageal reflux disease without esophagitis; Z90.49 Acquired absence of other specified parts of digestive tract; Z51.5 Encounter for palliative care; Z66 Do not resuscitate; Z79.82 Long term (current) use of aspirin; Z79.899 Other long term (current) drug therapy